=== PATIENT | female | born 1950 | race Caucasian/White ===

== ENCOUNTER 2020-06-23 09:06 | Outpatient (REF) | payer MEDICARE, MEDICAID, SELFPAY ==
[2020-06-23 10:05] LABS: MANUAL DIFF FLAG NO
[2020-06-23 10:09] LABS: Basophils Percent Auto 0.6 % (0-2); Eosinophils Absolute Auto 0.2 X10*3/uL (0.0-0.4); Hematocrit 36.6 % (37-47); Hemoglobin 12.1 g/dl (12.0-16.0); Imm Gran Abs Auto 0.03 X10*3/uL (0.00-0.03); Imm Gran Pct Auto 0.4 % (0.0-0.4); Lymphocytes Absolute Auto 1.8 X10*3/uL (1.2-4.9); Lymphocytes Percent Auto 26.5 % (20-40); Mean Corpuscular HGB Conc 33.1 g/dl (31.0-35.0); Mean Corpuscular Hemoglobin 29.3 pg (27.0-33.0); Mean Corpuscular Volume 88.6 fL (80-98); Mean Platelet Volume 12.2 fL (9.4-12.3); Monocytes Absolute Auto 0.4 X10*3/uL (0.1-1.2); Neutrophils Absolute Auto 4.3 X10*3/uL (2.0-8.3); Neutrophils Percent Auto 63.5 % (45-73); Platelet Count 199 X10*3/uL (160-400); Red Blood Count 4.13 X10*6/uL (4.20-5.50); Red Cell Distribution Width 11.9 % (11.0-16.0); White Blood Count 6.7 X10*3/uL (4.8-10.8)
[2020-06-23 10:36] LABS: Anion Gap 16 (12-20); Blood Urea Nitrogen 35 mg/dL (9-16); Calcium 9.5 mg/dL (8.4-10.2); Carbon Dioxide 24 mmol/L (22-29); Chloride 101 mmol/L (96-108); Estimated Glomerular Filt Rate 38; Magnesium 1.5 mg/dL (1.6-2.6); Phosphorus 4.5 mg/dL (2.7-4.5); Potassium 5.6 mmol/l (3.3-5.1); Sodium 135 mmol/L (135-145)
[2020-06-23 10:36] LABS: Creatinine Urine 140.22 mg/dL; Total Protein Urine Random 26 mg/dL (<12)
[2020-06-23 10:59] LABS: Vitamin D 25-OH Total 35.1 ng/mL (>30)
[2020-06-23 11:01] LABS: Glucose Urine UA NEG (NEG); Leukocyte Esterase Urine 1+ (NEG); Nitrite Urine NEG (NEG); Urine Blood NEG (NEG); Urine Ketones NEG (NEG); Urine Protein TRACE MG/DL (NEG-TRACE)
[2020-06-23 11:10] LABS: Appearance Urine HAZY; Color Urine YELLOW
[2020-06-23 11:11] LABS: Renal w Reflex-LAB USE ONLY Order Verified
[2020-06-23 11:47] LABS: Creatinine Urine 133.56 mg/dL; Protein/Creatinine Ratio, Ur 0.19 (<0.2); Total Protein Urine Random 26 mg/dL (<12)
[2020-06-23 11:51] LABS: Bacteria Urine TRACE /LPF; RBC Urine 0-2 /HPF (0); Squamous Epithelial Cell Urine 1+ /LPF
[2020-06-23 13:40] LABS: Renal w Reflex Lab Use Only Order verified
[2020-06-26 17:13] LABS: Calcium (PTHI) 9.8 mg/dL (8.6-10.4); PTHI 63 pg/mL (14-64)
== END 2020-06-23 09:07 | disposition home or self-care (01) ==
LOC: HO.LAB 09:06
PROVIDERS: PCP Family Medicine; Visit Provider Internal Medicine Nephrology
DX: E11.22 Type 2 diabetes mellitus with diabetic chronic kidney disease (principal); I12.9 Hypertensive chronic kidney disease with stage 1 through stage 4 chronic kidney disease, or unspecified chronic kidney disease; N18.30 Chronic kidney disease, stage 3 unspecified; D63.8 Anemia in other chronic diseases classified elsewhere; R80.9 Proteinuria, unspecified; E87.2 Acidosis; E83.52 Hypercalcemia
CPT/HCPCS: 36415; 80051; 81001; 82040; 82043; 82306; 82310; 82565; 83735; 83970; 84100; 84156; 84520; 85025; 87086

== ENCOUNTER 2020-07-13 13:23 | Outpatient (REF) | payer MEDICARE, MEDICAID, SELFPAY ==
[2020-07-13 14:57] LABS: Anion Gap 16 (12-20); Blood Urea Nitrogen 43 mg/dL (9-16); Calcium 9.5 mg/dL (8.4-10.2); Carbon Dioxide 23 mmol/L (22-29); Chloride 103 mmol/L (96-108); Estimated Glomerular Filt Rate 37; Phosphorus 4.9 mg/dL (2.7-4.5); Potassium 5.3 mmol/l (3.3-5.1); Sodium 137 mmol/L (135-145)
[2020-07-13 15:42] LABS: Renal w Reflex Lab Use Only Order verified
== END 2020-07-13 13:24 | disposition home or self-care (01) ==
LOC: HO.LAB 13:23
PROVIDERS: PCP Family Medicine; Visit Provider Internal Medicine Nephrology
DX: E11.22 Type 2 diabetes mellitus with diabetic chronic kidney disease (principal); E11.21 Type 2 diabetes mellitus with diabetic nephropathy; I12.9 Hypertensive chronic kidney disease with stage 1 through stage 4 chronic kidney disease, or unspecified chronic kidney disease; N18.30 Chronic kidney disease, stage 3 unspecified; D63.8 Anemia in other chronic diseases classified elsewhere; R80.9 Proteinuria, unspecified; E87.2 Acidosis; E83.52 Hypercalcemia
CPT/HCPCS: 36415; 80051; 82310; 82565; 84100; 84520

== ENCOUNTER 2020-08-07 19:16 | Emergency (ER) | payer MEDICARE, MEDICAID, SELFPAY ==
[2020-08-07 21:10] VITALS: BP 130/72; PULSE 74; RESP 18; TEMP 36.6; O2SAT 97; BMI 33.3
[2020-08-07 22:36] VITALS: BP 150/66; PULSE 67; RESP 16; TEMP 37; O2SAT 99
[2020-08-07 22:52] LABS: MANUAL DIFF FLAG NO
[2020-08-07 22:53] LABS: Basophils Absolute Auto 0.1 X10*3/uL (0.0-0.2); Basophils Percent Auto 0.5 % (0-2); Eosinophils Absolute Auto 0.2 X10*3/uL (0.0-0.4); Eosinophils Percent Auto 1.8 % (0-4); Hematocrit 33.4 % (37-47); Hemoglobin 11.3 g/dl (12.0-16.0); Imm Gran Abs Auto 0.03 X10*3/uL (0.00-0.03); Imm Gran Pct Auto 0.3 % (0.0-0.4); Lymphocytes Absolute Auto 2.3 X10*3/uL (1.2-4.9); Lymphocytes Percent Auto 24.8 % (20-40); Mean Corpuscular HGB Conc 33.8 g/dl (31.0-35.0); Mean Corpuscular Hemoglobin 29.8 pg (27.0-33.0); Mean Corpuscular Volume 88.1 fL (80-98); Mean Platelet Volume 11.7 fL (9.4-12.3); Monocytes Absolute Auto 0.6 X10*3/uL (0.1-1.2); Monocytes Percent Auto 6.4 % (2-11); Neutrophils Absolute Auto 6.2 X10*3/uL (2.0-8.3); Neutrophils Percent Auto 66.2 % (45-73); Platelet Count 208 X10*3/uL (160-400); Red Blood Count 3.79 X10*6/uL (4.20-5.50); Red Cell Distribution Width 12.1 % (11.0-16.0); White Blood Count 9.3 X10*3/uL (4.8-10.8)
[2020-08-07 23:01] LABS: Glucose Urine UA NEG (NEG); Leukocyte Esterase Urine 1+ (NEG); Nitrite Urine NEG (NEG); PH 5.5 (5.0-8.0); UACC Culture Trigger YES; Urine Blood NEG (NEG); Urine Ketones NEG (NEG); Urine Protein NEG (NEG-TRACE)
[2020-08-07 23:03] LABS: Appearance Urine CLEAR; Color Urine STRAW
[2020-08-07 23:13] LABS: Bacteria Urine TRACE /LPF; RBC Urine 0 /HPF (0); Squamous Epithelial Cell Urine 1+ /LPF
[2020-08-07 23:24] LABS: Alanine Aminotransferase 19 U/L (0-31); Alkaline Phosphatase 74 U/L (39-117); Anion Gap 18 (12-20); Aspartate Amino Transferase 12 U/L (5-31); Bilirubin Direct < 0.2 mg/dL (0.0-0.5); Bilirubin Total 0.3 mg/dL (0.0-1.0); Blood Urea Nitrogen 40 mg/dL (9-16); Calcium 8.9 mg/dL (8.4-10.2); Carbon Dioxide 17 mmol/L (22-29); Chloride 104 mmol/L (96-108); Creatinine Clr Calc Pharmacy 47.5; Estimated Glomerular Filt Rate 42; Glucose Random 153 mg/dL (60-115); Lipase 40 U/L (8-78); Potassium 4.7 mmol/L (3.3-5.1); Sodium 134 mmol/L (135-145); Total Protein 7.4 g/dL (6.5-8.0)
[2020-08-07 23:27] LABS: B Type Natriuretic Peptide 36 pg/mL (<100)
--- NOTE | 2020-08-07 23:48 | PC.NURSE ---
PT TO ROOM, CHG INTO GOWN AND AWAITING MD'S EVAL. LABS AND URINE COLLECTED IN WR GARAGE MANAGER. PT C/O HAILEY LEG SWELLING AND PAIN AND FLANK PAIN. PT ARRIVES ALERT, RESPIRATIONS EASY, N/L. SKIN W/D. WILL CONTINUE TO MONITOR PT.
--- NOTE | 2020-08-07 23:50 | ED.GENADULT ---
HPI - General Adult General Chief complaint: General Medical Stated complaint: flank pain Time Seen by Provider: 08/07/20 23:50 Source: patient Mode of arrival: ambulatory Limitations: no limitations History of Present Illness HPI narrative: Patient history of dependent edema on diuretics comes here for increased swelling for last few days also complaining of pain in the left ankle area without any history of injury / fall patient denies any fever no calf tenderness no urinary complaints no shortness of breath or chest pain patient was complaining of mild lower abdominal discomfort Related Data Previous Rx's Medication Instructions Recorded nitrofurantoin monohyd/m-cryst 100 mg PO BID #14 cap 08/08/20 [Macrobid] tramadol 50 mg PO Q8H PRN #20 tab 08/08/20 Allergies Allergy/AdvReac Type Severity Reaction Status Date / Time No Known Allergies Allergy Unverified 03/02/20 16:45 Review of Systems Review of Systems: Constitutional : No Weight loss, No Fever, No Chills ENT/Mouth : No sore throat, No Rhinorrhea Eyes: No Eye Pain, No Swelling Cardiovascular : No Chest Pain, no palpitations Respiratory : No Cough, No Sputum, no shortness of breath Gastrointestinal : no Nausea, No Vomiting, No Diarrhea, mild lower abdominal Pain, no black stools Genitourinary : No Dysuria, No Urinary Frequency Musculoskeletal : No joint pain, No Myalgias, No Joint Swelling Skin : No Skin Lesions, No rash Neuro : No Weakness, No Numbness, No Dizziness, No Headache Psych : No Anxiety/Panic, No Depression Heme/Lymph: No Bruising, No Lymphadenopathy Endocrine : No Polyuria, No Polydipsia All other systems reviewed and are negative [facility] Past Medical History Medical History (Updated 08/08/20 @ 00:50 by Jamir Crespo MD) Leg edema Social History Social History Advance Directives: No Physical Exam Vital Signs: Vital Signs: Last Vital Signs Temp 98.6 F 08/07/20 22:36 Pulse 67 08/07/20 22:36 Resp 16 08/07/20 22:36 BP 150/66 H 08/07/20 22:36 Pulse Ox 99 08/07/20 22:36 Body Mass Index 33.3 Appearance: Alert. Oriented X3. No acute distress. Eyes: Pupils equal, round and reactive to light. ENT: Pharynx normal. Neck: Normal inspection. Neck supple. CVS: Normal heart rate and rhythm. Pulses normal. Respiratory: No respiratory distress. Breath sounds normal. Abdomen: Soft and nontender. Bowel sounds are present, no mass palpable, no CVA tenderness Skin: Skin warm and dry. Normal skin color. Normal skin turgor. Extremities: 1+ lower extremity edema. No calf tenderness Homans sign negative Neuro: Oriented X 3. No motor deficit. No sensory deficit. Medical Decision Making MDM Narrative Medical decision making narrative: Patient has stable labs normal BNP on diuretics for her dependent leg edema no signs of DVT at this time no shortness of breath patient advised to continue her water pill will give her tramadol for mild pain in the left ankle. Also urine showed mild UTI will treat her with Macrobid Lab Data Lab results reviewed: Yes I reviewed the patient's lab results. Result diagrams: 08/07/20 22:47 08/07/20 22:47 Labs: Lab Results 08/07/20 08/07/20 08/07/20 Range/Units 22:47 22:47 22:47 WBC 9.3 (4.8-10.8) X10*3/uL RBC 3.79 L (4.20-5.50) X10*6/uL Hgb 11.3 L (12.0-16.0) g/dl Hct 33.4 L (37-47) % MCV 88.1 (80-98) fL MCH 29.8 (27.0-33.0) pg MCHC 33.8 (31.0-35.0) g/dl RDW 12.1 (11.0-16.0) % Plt Count 208 (160-400) X10*3/uL MPV 11.7 (9.4-12.3) fL Immature Gran % (Auto) 0.3 (0.0-0.4) % Neut % (Auto) 66.2 (45-73) % Lymph % (Auto) 24.8 (20-40) % [place] % (Auto) 6.4 (2-11) % Eos % (Auto) 1.8 (0-4) % Baso % (Auto) 0.5 (0-2) % Lymph # (Auto) 2.3 (1.2-4.9) X10*3/uL [place] # (Auto) 0.6 (0.1-1.2) X10*3/uL Eos # (Auto) 0.2 (0.0-0.4) X10*3/uL Baso # (Auto) 0.1 (0.0-0.2) X10*3/uL Abs Immat Gran (auto) 0.03 (0.00-0.03) X10*3/uL Absolute Neuts (auto) 6.2 (2.0-8.3) X10*3/uL Absolute Nucleated RBC 0.000 (0.0-0.012) X10*3/uL Nucleated RBC % (auto) 0.0 (0.0-0.2) /100WBC Sodium 134 L (135-145) mmol/L Potassium 4.7 (3.3-5.1) mmol/L Chloride 104 (96-108) mmol/L Carbon Dioxide 17 L (22-29) mmol/L Anion Gap 18 (12-20) BUN 40 H (9-16) mg/dL Creatinine 1.26 (0.5-1.4) mg/dL Estim Creat Clear Calc 47.5 Estimated GFR 42 Random Glucose 153 H (60-115) mg/dL Calcium 8.9 D (8.4-10.2) mg/dL Total Bilirubin 0.3 (0.0-1.0) mg/dL Direct Bilirubin < 0.2 (0.0-0.5) mg/dL AST 12 (5-31) U/L ALT 19 (0-31) U/L Alkaline Phosphatase 74 (39-117) U/L B-Natriuretic Peptide 36 (<100) pg/mL Total Protein 7.4 (6.5-8.0) g/dL Albumin 4.0 (3.5-5.0) g/dL Lipase 40 (8-78) U/L Urine Color Urine Appearance Urine pH (5.0-8.0) Ur Specific Lynch (1.005-1.025) Urine Protein (NEG-TRACE) MG/DL Urine Glucose (UA) (NEG) MG/DL Urine Ketones (NEG) MG/DL Urine Blood (NEG) Urine Nitrite (NEG) Ur Leukocyte Esterase (NEG) Urine RBC (0) /HPF Urine WBC (0-4) /HPF Ur Squamous Epith Cells /LPF Urine Bacteria /LPF 08/07/20 Range/Units 22:55 WBC (4.8-10.8) X10*3/uL RBC (4.20-5.50) X10*6/uL Hgb (12.0-16.0) g/dl Hct (37-47) % MCV (80-98) fL MCH (27.0-33.0) pg MCHC (31.0-35.0) g/dl RDW (11.0-16.0) % Plt Count (160-400) X10*3/uL MPV (9.4-12.3) fL Immature Gran % (Auto) (0.0-0.4) % Neut % (Auto) (45-73) % Lymph % (Auto) (20-40) % [place] % (Auto) (2-11) % Eos % (Auto) (0-4) % Baso % (Auto) (0-2) % Lymph # (Auto) (1.2-4.9) X10*3/uL [place] # (Auto) (0.1-1.2) X10*3/uL Eos # (Auto) (0.0-0.4) X10*3/uL Baso # (Auto) (0.0-0.2) X10*3/uL Abs Immat Gran (auto) (0.00-0.03) X10*3/uL Absolute Neuts (auto) (2.0-8.3) X10*3/uL Absolute Nucleated RBC (0.0-0.012) X10*3/uL Nucleated RBC % (auto) (0.0-0.2) /100WBC Sodium (135-145) mmol/L Potassium (3.3-5.1) mmol/L Chloride (96-108) mmol/L Carbon Dioxide (22-29) mmol/L Anion Gap (12-20) BUN (9-16) mg/dL Creatinine (0.5-1.4) mg/dL Estim Creat Clear Calc Estimated GFR Random Glucose (60-115) mg/dL Calcium (8.4-10.2) mg/dL Total Bilirubin (0.0-1.0) mg/dL Direct Bilirubin (0.0-0.5) mg/dL AST (5-31) U/L ALT (0-31) U/L Alkaline Phosphatase (39-117) U/L B-Natriuretic Peptide (<100) pg/mL Total Protein (6.5-8.0) g/dL Albumin (3.5-5.0) g/dL Lipase (8-78) U/L Urine Color STRAW Urine Appearance CLEAR Urine pH 5.5 (5.0-8.0) Ur Specific Lynch 1.010 (1.005-1.025) Urine Protein NEG (NEG-TRACE) MG/DL Urine Glucose (UA) NEG (NEG) MG/DL Urine Ketones NEG (NEG) MG/DL Urine Blood NEG (NEG) Urine Nitrite NEG (NEG) Ur Leukocyte Esterase 1+ H (NEG) Urine RBC 0 (0) /HPF Urine WBC 10-14 H (0-4) /HPF Ur Squamous Epith Cells 1+ /LPF Urine Bacteria TRACE /LPF Discharge Plan Discharge Clinical Impression: Leg edema, Acute UTI Patient Disposition: Home, Self-Care Instructions: Urinary Tract Infection in Women (ED), Leg Edema (ED) Additional Instructions: Continue water pill. Keep your legs elevated. Take antibiotic for infection the urine. Follow with PCP if not better increased swelling or shortness of breath Prescriptions: New nitrofurantoin monohyd/m-cryst [Macrobid] 100 mg capsule 100 mg PO BID Qty: 14 RF: 0 tramadol 50 mg tablet 50 mg PO Q8H PRN (Reason: pain) Qty: 20 RF: 0 Interventions: ED Discharge Assessment Last Done: 08/08/20 00:11 Discharge Date/Time: 08/08/20 00:20
[2020-08-08] MEDS: traMADoL HCL 50 MG TABLET PO (00:09)
[2020-08-08] MEDS: Nitrofurantoin Monohyd/M-Cryst 100 MG CAPSULE PO (00:10)
== END 2020-08-08 00:20 | disposition home or self-care (01) ==
PROVIDERS: Emergency Provider Internal Medicine; PCP Family Medicine
DX: R60.0 Localized edema (principal); M25.572 Pain in left ankle and joints of left foot; N39.0 Urinary tract infection, site not specified; Z79.899 Other long term (current) drug therapy
CPT/HCPCS: 36415; 80048; 80076; 81001; 81003; 83690; 83880; 85025; 87086; 99283

== ENCOUNTER 2020-10-13 09:41 | Outpatient (REF) | payer OTHER, SELFPAY ==
[2020-10-13 10:45] LABS: Anion Gap 15 (12-20); Blood Urea Nitrogen 35 mg/dL (9-16); Calcium 9.3 mg/dL (8.4-10.2); Carbon Dioxide 23 mmol/L (22-29); Chloride 100 mmol/L (96-108); Estimated Glomerular Filt Rate 36; Potassium 5.4 mmol/L (3.3-5.1); Sodium 133 mmol/L (135-145)
[2020-10-13 13:35] LABS: Renal w Reflex Lab Use Only Order verified
== END 2020-10-13 09:42 | disposition home or self-care (01) ==
LOC: HO.LAB 09:41
PROVIDERS: PCP Family Medicine; Visit Provider Internal Medicine Nephrology
DX: I12.9 Hypertensive chronic kidney disease with stage 1 through stage 4 chronic kidney disease, or unspecified chronic kidney disease (principal); D63.8 Anemia in other chronic diseases classified elsewhere; N18.30 Chronic kidney disease, stage 3 unspecified; R80.9 Proteinuria, unspecified; E11.21 Type 2 diabetes mellitus with diabetic nephropathy; E87.2 Acidosis; E83.52 Hypercalcemia
CPT/HCPCS: 36415; 80051; 82310; 82565; 84100; 84520

== ENCOUNTER 2021-02-28 12:55 | Emergency (ER) | payer OTHER, SELFPAY ==
--- NOTE | ~2021-02-28 | XR_ITS ---
EXAMINATION: RIGHT SHOULDER PAIN. CHEST CLINICAL INFORMATION: Right shoulder pain. Chest. COMPARISON: None TECHNIQUE: 4 views right shoulder. Chest 2 views. FINDINGS: RIGHT SHOULDER: There is no visible acute fracture, dislocation or subluxation. No bony erosive changes. No loose bodies. The soft tissues are normal. CHEST: Both lungs are fairly well-expanded and clear. Heart size and pulmonary vascularity is normal. No gross bony abnormality seen. XR/XR shoulder RT min 2V IMPRESSION: Unremarkable right shoulder exam. Unremarkable chest exam.
--- NOTE | ~2021-02-28 | XR_ITS ---
EXAMINATION: RIGHT SHOULDER PAIN. CHEST CLINICAL INFORMATION: Right shoulder pain. Chest. COMPARISON: None TECHNIQUE: 4 views right shoulder. Chest 2 views. FINDINGS: RIGHT SHOULDER: There is no visible acute fracture, dislocation or subluxation. No bony erosive changes. No loose bodies. The soft tissues are normal. CHEST: Both lungs are fairly well-expanded and clear. Heart size and pulmonary vascularity is normal. No gross bony abnormality seen. XR/XR chest 2V IMPRESSION: Unremarkable right shoulder exam. Unremarkable chest exam.
--- NOTE | 2021-02-28 13:11 | PC.NURSE ---
waiting for electric range servicer to triage
[2021-02-28 13:16] VITALS: BP 152/66; PULSE 74; RESP 17; TEMP 36.5; O2SAT 96; BMI 34.0
--- NOTE | 2021-02-28 14:16 | ECG_ITS ---
Test Reason : CHEST WALL PAIN Blood Pressure : / mmHG Vent. Rate : 063 BPM Atrial Rate : 063 BPM P-R Int : 160 ms QRS Dur : 074 ms QT Int : 464 ms P-R-T Axes : 029 -25 000 degrees QTc Int : 474 ms Normal sinus rhythm Moderate voltage criteria for LVH, may be normal variant Borderline ECG When compared with ECG of 15-MAR-2018 01:28, No significant change was found Referred By: Poppy Bartlett Electronically Signed By:JENNIFER ANDERSON
--- NOTE | 2021-02-28 14:16 | ED.EXTPRO ---
HPI - Extremity Problem General Chief complaint: Extremity Injury, Upper Stated complaint: shoulder Inj Time Seen by Provider: 02/28/21 13:26 Source: patient Mode of arrival: ambulatory Limitations: no limitations History of Present Illness HPI Narrative: This is a 62-year-old female with a past medical history of hypertension, diabetes that presents to the emergency department with vague shoulder pain. Upon further questioning she states that the pain is chest pain as well as shoulder pain. She states that the shoulder pain began about 2 weeks ago, and it has been intermittent in nature about a 6/10. The shoulder pain worsens with movement, and is absent at rest. this started after she lifted an air-conditioning by herself. Her shoulder pain does not radiate. She then explains that she is having anterior chest wall pain, that seems to worsen upon inspiration. The chest pain started around 2 weeks ago, and again is intermittent in nature, she feels like a stabbing pain when it comes on. Patient took Tylenol at home, with little relief. She has no prior cardiac history. MD Complaint: extremity pain (Right shoulder pain) and other (Chest pain) Onset (ago): week(s) (Two weeks) Pain Consistency: intermittent Location: upper extremity (Right shoulder) Severity scale (1-10): 6 Quality: stabbing (Stabbing chest pain) Radiation: none Exacerbating factors: range of motion Associated symptoms: denies other symptoms Related Data Previous Rx's Medication Instructions Recorded nitrofurantoin 100 mg PO BID #14 cap 08/08/20 monohydrate/macrocrystals 100 mg capsule (Macrobid) tramadol 50 mg tablet 50 mg PO Q8H PRN #20 tab 08/08/20 cyclobenzaprine 10 mg tablet 10 mg PO Q8H #14 tab 02/28/21 Allergies Allergy/AdvReac Type Severity Reaction Status Date / Time No Known Allergies Allergy Verified 02/28/21 13:16 Review of Systems Review of Systems: Constitutional : No Weight loss, No Fever, No Chills, No Night Sweats, No Fatigue, No Malaise ENT/Mouth : No Hearing loss, No Ear Pain, No Nasal Congestion, No Sinus Pain, No Hoarseness, No sore throat, No Rhinorrhea, No Swallowing Difficulty Eyes: No Eye Pain, No Swelling, No Redness, No Foreign Body, No Discharge, No Vision Changes Cardiovascular : POS Chest Pain pleuritic, No SOB, No Dyspnea on Exertion, No Orthopnea, No Edema, No Palpitations Respiratory : No Cough, No Sputum, No Wheezing, No Smoke Exposure, No Dyspnea Gastrointestinal : No Nausea, No Vomiting, No Diarrhea, No Constipation, No abdominal Pain, No Hematochezia, No Melena Genitourinary : no irregular bleeding, No Dysuria, No Urinary Frequency, No Hematuria, No Urinary Incontinence, No Urgency, No Flank Pain, No Urinary Flow Changes, No Hesitancy Musculoskeletal : pos right shoulder pain with movement, Myalgias, No Joint Swelling Skin : No Skin Lesions, No rash Neuro : No Weakness, No Numbness, No Paresthesias, No Loss of Consciousness, No Dizziness, No Headache Psych : No Anxiety/Panic, No Depression, No SI/HI/AH/VH, No Social Issues, Heme/Lymph: No Bruising, No Bleeding,No Lymphadenopathy Endocrine : No Polyuria, No Polydipsia, Yes all other systems are reviewed and are negative [facility] Past Medical History Attestation statement: The following information was validated with the patient. Medical History Diabetes HTN (hypertension) Leg edema Surgical History S/P cholecystectomy Social History Social History Advance Directives: No Advance Directives Information Provided: No Physical Exam Vital Signs: Vital Signs: Last Vital Signs Temp 97.7 F 02/28/21 13:16 Pulse 63 02/28/21 17:04 Resp 16 02/28/21 17:04 BP 139/65 02/28/21 17:04 Pulse Ox 96 02/28/21 17:04 Body Mass Index 34.0 vital signs have been reviewed as normal and appeared to be correct. Blood pressure normal. Heart rate normal. Respiration rate normal. Temperature normal. Oxygen saturation normal. Appearance: Alert. Oriented X3. No acute distress. Head: Normal external exam. Normocephalic. Eyes: PERRLA. EOMI. Conjunctiva and sclera normal. Eyelids normal. ENT: Pharynx normal. Uvula midline. Moist mucous membranes. Neck: Normal inspection. Neck supple. FROM. No adenopathy. No meningeal signs. CVS: Normal heart rate and rhythm. Heart sound normal. No murmurs noted. Pulses normal throughout. Pos palpation of anterior chest wall on the right-hand side Respiratory: No respiratory distress. Painless inspiration. Breath sounds normal. No wheezes/rales/rhonchi noted. Chest nontender. No accessory muscle usage noted or decreased air movement noted. Abdomen: Soft and nontender. Nondistended. No guarding. No rigidity. Bowel sounds normal in all 4 quadrants. No distention noted. No organomegaly noted. No visible injury noted. No rebound tenderness. Negative Rovsing sign. Negative obturator's sign. Negative psoas sign. Negative Frost sign. Back: No CVA tenderness. Full range of motion noted. Skin: Skin warm and dry. Normal skin color. Normal skin turgor. No rashes/lesions/lacerations noted. Extremities: Extremities exhibit normal range of motion. Her right shoulder has normal range of motion but causes patient discomfort. No obvious ligamentous injury Neuro: Oriented X 3. No motor deficit. No sensory deficit. Reflexes normal. Normal steady gait. Course Course Course Narrative: 70-year-old female presenting to the ED with complaints of right shoulder pain for the past 2 weeks that have been intermittent after she lifted the air conditioner. She denied any chest pain or shortness of breath although due to her age in her intermittent right shoulder pain she had a cardiac workup. Her labs were obtained and her potassium was 5.3 therefore she was given 30 g of Kayexalate. Her BUN and creatinine are improved and similar when compared to prior. Her troponin was negative delta initially was 5.43 hours later 5.9 therefore this is negative delta. EKG is normal sinus rhythm with a ventricular rate of 63 with moderate voltage criteria for LVH she also had inverted T-waves otherwise no acute ischemic changes are noted. And this EKG is similar including the inverted T-waves with EKG on 03/15/2018. UA revealed trace of leukocytes otherwise within normal limits will wait for culture before treating for UTI as patient denies any urinary symptoms. Right shoulder x-ray negative. Chest x-ray negative. Therefore will DC home with symptomatic treatment as patient most likely has shoulder strain. Along with instructions follow-up with primary care provider and to return if any new or worsening symptoms. Patient understands agrees with this plan. MDM - Extremity (Nontraumatic) Medical Records Attestation: I reviewed the patient's medical records. Lab Data Attestation: I reviewed the patient's lab results. Result diagrams: 02/28/21 14:34 02/28/21 14:34 Labs: Lab Results 02/28/21 02/28/21 02/28/21 Range/Units 14:34 14:34 14:34 WBC 7.1 (4.8-10.8) X10*3/uL RBC 3.77 L (4.20-5.50) X10*6/uL Hgb 11.3 L (12.0-16.0) g/dl Hct 33.4 L (37-47) % MCV 88.6 (80-98) fL MCH 30.0 (27.0-33.0) pg MCHC 33.8 (31.0-35.0) g/dl RDW 11.9 (11.0-16.0) % Plt Count 230 (160-400) X10*3/uL MPV 11.2 (9.4-12.3) fL Immature Gran % (Auto) 0.3 (0.0-0.4) % Neut % (Auto) 61.1 (45-73) % Lymph % (Auto) 26.3 (20-40) % [place] % (Auto) 8.2 (2-11) % Eos % (Auto) 3.5 (0-4) % Baso % (Auto) 0.6 (0-2) % Lymph # (Auto) 1.9 (1.2-4.9) X10*3/uL [place] # (Auto) 0.6 (0.1-1.2) X10*3/uL Eos # (Auto) 0.3 (0.0-0.4) X10*3/uL Baso # (Auto) 0.0 (0.0-0.2) X10*3/uL Abs Immat Gran (auto) 0.02 (0.00-0.03) X10*3/uL Absolute Neuts (auto) 4.4 (2.0-8.3) X10*3/uL Absolute Nucleated RBC 0.000 (0.0-0.012) X10*3/uL Nucleated RBC % (auto) 0.0 (0.0-0.2) /100WBC PT 12.2 (9.9-13.0) SEC INR 1.1 (0.9-1.1) Sodium 136 (135-145) mmol/L Potassium 5.3 H (3.3-5.1) mmol/L Chloride 105 (96-108) mmol/L Carbon Dioxide 21 L (22-29) mmol/L Anion Gap 15 (12-20) BUN 27 H (9-16) mg/dL Creatinine 1.44 H (0.5-1.4) mg/dL Estim Creat Clear Calc 36.1 Estimated GFR 36 Random Glucose 165 H (60-115) mg/dL Calcium 9.3 (8.4-10.2) mg/dL Magnesium 1.6 (1.6-2.6) mg/dL Total Bilirubin 0.5 (0.0-1.0) mg/dL AST 17 D (5-31) U/L ALT 20 (0-31) U/L Alkaline Phosphatase 56 D (39-117) U/L Troponin I High Sens (<3.5-17.0) ng/L B-Natriuretic Peptide (<100) pg/mL Total Protein 7.1 (6.5-8.0) g/dL Albumin 3.9 (3.5-5.0) g/dL Urine Color Urine Appearance Urine pH (5.0-8.0) Ur Specific Evans (1.005-1.025) Urine Protein (NEG-TRACE) MG/DL Urine Glucose (UA) (NEG) MG/DL Urine Ketones (NEG) MG/DL Urine Blood (NEG) Urine Nitrite (NEG) Ur Leukocyte Esterase (NEG) Urine RBC (0) /HPF Urine WBC (0-4) /HPF Ur Squamous Epith Cells /LPF Urine Bacteria /LPF 02/28/21 02/28/21 02/28/21 Range/Units 14:34 16:01 17:36 WBC (4.8-10.8) X10*3/uL RBC (4.20-5.50) X10*6/uL Hgb (12.0-16.0) g/dl Hct (37-47) % MCV (80-98) fL MCH (27.0-33.0) pg MCHC (31.0-35.0) g/dl RDW (11.0-16.0) % Plt Count (160-400) X10*3/uL MPV (9.4-12.3) fL Immature Gran % (Auto) (0.0-0.4) % Neut % (Auto) (45-73) % Lymph % (Auto) (20-40) % [place] % (Auto) (2-11) % Eos % (Auto) (0-4) % Baso % (Auto) (0-2) % Lymph # (Auto) (1.2-4.9) X10*3/uL [place] # (Auto) (0.1-1.2) X10*3/uL Eos # (Auto) (0.0-0.4) X10*3/uL Baso # (Auto) (0.0-0.2) X10*3/uL Abs Immat Gran (auto) (0.00-0.03) X10*3/uL Absolute Neuts (auto) (2.0-8.3) X10*3/uL Absolute Nucleated RBC (0.0-0.012) X10*3/uL Nucleated RBC % (auto) (0.0-0.2) /100WBC PT (9.9-13.0) SEC INR (0.9-1.1) Sodium (135-145) mmol/L Potassium (3.3-5.1) mmol/L Chloride (96-108) mmol/L Carbon Dioxide (22-29) mmol/L Anion Gap (12-20) BUN (9-16) mg/dL Creatinine (0.5-1.4) mg/dL Estim Creat Clear Calc Estimated GFR Random Glucose (60-115) mg/dL Calcium (8.4-10.2) mg/dL Magnesium (1.6-2.6) mg/dL Total Bilirubin (0.0-1.0) mg/dL AST (5-31) U/L ALT (0-31) U/L Alkaline Phosphatase (39-117) U/L Troponin I High Sens 5.4 5.9 (<3.5-17.0) ng/L B-Natriuretic Peptide 47 (<100) pg/mL Total Protein (6.5-8.0) g/dL Albumin (3.5-5.0) g/dL Urine Color YELLOW Urine Appearance CLEAR Urine pH 6.0 (5.0-8.0) Ur Specific Evans 1.010 (1.005-1.025) Urine Protein NEG (NEG-TRACE) MG/DL Urine Glucose (UA) NEG (NEG) MG/DL Urine Ketones NEG (NEG) MG/DL Urine Blood NEG (NEG) Urine Nitrite NEG (NEG) Ur Leukocyte Esterase TRACE H (NEG) Urine RBC 0 (0) /HPF Urine WBC 0-2 (0-4) /HPF Ur Squamous Epith Cells 1+ /LPF Urine Bacteria TRACE /LPF Imaging Data X-ray of chest, and right shoulder: Attestation: I personally reviewed and interpreted this imaging study as follows: Radiologist's impression: XR/XR chest 2V IMPRESSION: Unremarkable right shoulder exam. ? Unremarkable chest exam.? ECG Data Attestation EKG: I personally reviewed and interpreted this ECG as follows: ECG interpretation date: 02/28/21 ECG interpretation time: 14:31 Prior ECG tracings: available for review Interpretation: EKG is normal sinus rhythm with a ventricular rate of 63 with moderate voltage criteria for LVH she also had inverted T-waves otherwise no acute ischemic changes are noted. And this EKG is similar including the inverted T-waves with EKG on 03/15/2018. Discharge Plan Discharge Clinical Impression: Right shoulder strain Patient Disposition: Home, Self-Care Instructions: Shoulder Sprain (ED), Rotator Cuff Injury Exercises (DC) Prescriptions: New cyclobenzaprine 10 mg tablet 10 mg PO Q8H Qty: 14 RF: 0 No Action nitrofurantoin monohyd/m-cryst [Macrobid] 100 mg capsule 100 mg PO BID Qty: 14 RF: 0 tramadol 50 mg tablet 50 mg PO Q8H PRN (Reason: pain) Qty: 20 RF: 0 Referrals: Amy Gilman MD [Primary Care Provider] - 2 days Print Language: Andorran
[2021-02-28 14:41] LABS: MANUAL DIFF FLAG NO
[2021-02-28 14:48] LABS: Basophils Percent Auto 0.6 % (0-2); Eosinophils Absolute Auto 0.3 X10*3/uL (0.0-0.4); Eosinophils Percent Auto 3.5 % (0-4); Hematocrit 33.4 % (37-47); Hemoglobin 11.3 g/dl (12.0-16.0); Imm Gran Abs Auto 0.02 X10*3/uL (0.00-0.03); Imm Gran Pct Auto 0.3 % (0.0-0.4); Lymphocytes Absolute Auto 1.9 X10*3/uL (1.2-4.9); Lymphocytes Percent Auto 26.3 % (20-40); Mean Corpuscular HGB Conc 33.8 g/dl (31.0-35.0); Mean Corpuscular Volume 88.6 fL (80-98); Mean Platelet Volume 11.2 fL (9.4-12.3); Monocytes Absolute Auto 0.6 X10*3/uL (0.1-1.2); Monocytes Percent Auto 8.2 % (2-11); Neutrophils Absolute Auto 4.4 X10*3/uL (2.0-8.3); Neutrophils Percent Auto 61.1 % (45-73); Platelet Count 230 X10*3/uL (160-400); Red Blood Count 3.77 X10*6/uL (4.20-5.50); Red Cell Distribution Width 11.9 % (11.0-16.0); White Blood Count 7.1 X10*3/uL (4.8-10.8)
[2021-02-28 14:49] LABS: INTERNATIONAL NORM RATIO 1.1 (0.9-1.1); Prothrombin Time 12.2 SEC (9.9-13.0)
[2021-02-28 15:15] LABS: Alanine Aminotransferase 20 U/L (0-31); Albumin Level 3.9 g/dL (3.5-5.0); Alkaline Phosphatase 56 U/L (39-117); Anion Gap 15 (12-20); Aspartate Amino Transferase 17 U/L (5-31); Bilirubin Total 0.5 mg/dL (0.0-1.0); Blood Urea Nitrogen 27 mg/dL (9-16); Calcium 9.3 mg/dL (8.4-10.2); Carbon Dioxide 21 mmol/L (22-29); Chloride 105 mmol/L (96-108); Creatinine Clr Calc Pharmacy 36.1; Estimated Glomerular Filt Rate 36; Glucose Random 165 mg/dL (60-115); Magnesium 1.6 mg/dL (1.6-2.6); Potassium 5.3 mmol/L (3.3-5.1); Sodium 136 mmol/L (135-145); Total Protein 7.1 g/dL (6.5-8.0)
[2021-02-28 15:19] LABS: B Type Natriuretic Peptide 47 pg/mL (<100); Troponin-I High Sensitivity 5.4 ng/L (<3.5-17.0)
[2021-02-28] MEDS: Sodium Polystyrene Sulfon/Sorb 15 GM/60 ML ORAL.SUSP 30 GM PO (15:27)
[2021-02-28 16:11] LABS: Appearance Urine CLEAR; Color Urine YELLOW; Glucose Urine UA NEG (NEG); Leukocyte Esterase Urine TRACE (NEG); Nitrite Urine NEG (NEG); UACC Culture Trigger YES; Urine Blood NEG (NEG); Urine Ketones NEG (NEG); Urine Protein NEG (NEG-TRACE)
[2021-02-28 16:33] LABS: Bacteria Urine TRACE /LPF; RBC Urine 0 /HPF (0); Squamous Epithelial Cell Urine 1+ /LPF; WBC Urine 0-2 /HPF (0-4)
[2021-02-28 17:04] VITALS: BP 139/65; PULSE 63; RESP 16; O2SAT 96
[2021-02-28 18:09] LABS: Troponin-I High Sensitivity 5.9 ng/L (<3.5-17.0)
[2021-02-28 18:53] VITALS: BP 148/71; PULSE 68; RESP 14; TEMP 36.2; O2SAT 96
== END 2021-02-28 19:12 | disposition home or self-care (01) ==
PROVIDERS: Physician Assistant Medical; Emergency Provider Emergency Medicine Emergency Medical Services; PCP Family Medicine
DX: S46.011A Strain of muscle(s) and tendon(s) of the rotator cuff of right shoulder, initial encounter (principal); M25.511 Pain in right shoulder; R06.02 Shortness of breath; R07.9 Chest pain, unspecified; X58.XXXA Exposure to other specified factors, initial encounter; Y93.9 Activity, unspecified; Y92.9 Unspecified place or not applicable; Y99.9 Unspecified external cause status; Z79.899 Other long term (current) drug therapy
CPT/HCPCS: 36415; 71046; 73030; 80053; 81001; 83735; 83880; 84484; 85025; 85610; 87086; 93005; 99283; 99284

== ENCOUNTER 2021-03-12 06:43 | Outpatient (REF) | payer OTHER, SELFPAY ==
[2021-03-12 08:01] LABS: MANUAL DIFF FLAG NO
[2021-03-12 08:08] LABS: Basophils Absolute Auto 0.1 X10*3/uL (0.0-0.2); Basophils Percent Auto 0.7 % (0-2); Eosinophils Absolute Auto 0.3 X10*3/uL (0.0-0.4); Eosinophils Percent Auto 4.7 % (0-4); Hemoglobin 11.9 g/dl (12.0-16.0); Imm Gran Abs Auto 0.02 X10*3/uL (0.00-0.03); Imm Gran Pct Auto 0.3 % (0.0-0.4); Lymphocytes Absolute Auto 1.8 X10*3/uL (1.2-4.9); Lymphocytes Percent Auto 26.5 % (20-40); Mean Corpuscular HGB Conc 33.1 g/dl (31.0-35.0); Mean Corpuscular Hemoglobin 29.6 pg (27.0-33.0); Mean Corpuscular Volume 89.6 fL (80-98); Mean Platelet Volume 11.5 fL (9.4-12.3); Monocytes Absolute Auto 0.4 X10*3/uL (0.1-1.2); Monocytes Percent Auto 6.3 % (2-11); Neutrophils Absolute Auto 4.2 X10*3/uL (2.0-8.3); Neutrophils Percent Auto 61.5 % (45-73); Platelet Count 236 X10*3/uL (160-400); Red Blood Count 4.02 X10*6/uL (4.20-5.50); Red Cell Distribution Width 11.9 % (11.0-16.0); White Blood Count 6.8 X10*3/uL (4.8-10.8)
[2021-03-12 08:34] LABS: Albumin Level 3.9 g/dL (3.5-5.0); Anion Gap 18 (12-20); Blood Urea Nitrogen 37 mg/dL (9-16); Calcium 9.6 mg/dL (8.4-10.2); Carbon Dioxide 19 mmol/L (22-29); Chloride 102 mmol/L (96-108); Estimated Glomerular Filt Rate 30; Magnesium 1.8 mg/dL (1.6-2.6); Phosphorus 4.5 mg/dL (2.7-4.5); Potassium 5.2 mmol/L (3.3-5.1); Sodium 134 mmol/L (135-145)
[2021-03-12 08:55] LABS: Appearance Urine CLOUDY; Color Urine YELLOW; Glucose Urine UA NEG (NEG); Leukocyte Esterase Urine 3+ (NEG); Nitrite Urine NEG (NEG); Urine Blood TRACE (NEG); Urine Ketones NEG (NEG); Urine Protein TRACE MG/DL (NEG-TRACE)
[2021-03-12 09:14] LABS: Bacteria Urine 2+ /LPF; Squamous Epithelial Cell Urine 2+ /LPF
[2021-03-12 09:48] LABS: Creatinine Urine 163.58 mg/dL; Microalbum/Creatinine Ratio Ur 26.2 ug/mg cr; Total Protein Urine Random 12 mg/dL (<12)
[2021-03-13 16:16] LABS: Calcium (PTHI) 9.4 mg/dL (8.6-10.4); PTHI 47 pg/mL (14-64)
[2021-03-17 16:32] LABS: Vitamin D 25-OH, D2 <4 ng/mL; Vitamin D 25-OH, D3 47 ng/mL; Vitamin D 25-OH, Total 47 ng/mL (30-100)
== END 2021-03-12 06:44 | disposition home or self-care (01) ==
LOC: HO.LAB 06:43
PROVIDERS: PCP Family Medicine; Visit Provider Internal Medicine Nephrology
DX: E11.21 Type 2 diabetes mellitus with diabetic nephropathy (principal); N18.31 Chronic kidney disease, stage 3a; N25.0 Renal osteodystrophy; R80.1 Persistent proteinuria, unspecified
CPT/HCPCS: 36415; 80051; 81001; 82040; 82043; 82306; 82310; 82565; 83735; 83970; 84100; 84156; 84520; 85025; 87086

== ENCOUNTER 2021-05-29 07:31 | Outpatient (REF) | payer OTHER, SELFPAY ==
[2021-05-29 07:55] LABS: MANUAL DIFF FLAG NO
[2021-05-29 08:14] LABS: Basophils Percent Auto 0.6 % (0-2); Eosinophils Absolute Auto 0.3 X10*3/uL (0.0-0.4); Eosinophils Percent Auto 4.5 % (0-4); Hematocrit 34.3 % (37.0-47.0); Hemoglobin 11.3 g/dl (12.0-16.0); Imm Gran Abs Auto 0.02 X10*3/uL (0.00-0.03); Imm Gran Pct Auto 0.3 % (0.0-0.4); Lymphocytes Absolute Auto 1.9 X10*3/uL (1.2-4.9); Mean Corpuscular HGB Conc 32.9 g/dl (31.0-35.0); Mean Corpuscular Hemoglobin 29.3 pg (27.0-33.0); Mean Corpuscular Volume 88.9 fL (80.0-98.0); Mean Platelet Volume 11.3 fL (9.4-12.3); Monocytes Absolute Auto 0.4 X10*3/uL (0.1-1.2); Monocytes Percent Auto 5.5 % (2-11); Neutrophils Absolute Auto 4.4 x10*3/uL (2.0-8.3); Neutrophils Percent Auto 62.1 % (45-73); Platelet Count 213 X10*3/uL (160-400); Red Blood Count 3.86 X10*6/uL (4.20-5.50); Red Cell Distribution Width 11.8 % (11.0-16.0); White Blood Count 7.1 X10*3/uL (4.8-10.8)
[2021-05-29 08:52] LABS: Albumin Level 3.8 g/dL (3.5-5.0); Anion Gap 15 (12-20); Blood Urea Nitrogen 29 mg/dL (9-16); Calcium 9.4 mg/dL (8.4-10.2); Carbon Dioxide 25 mmol/L (22-29); Chloride 100 mmol/L (96-108); Estimated Glomerular Filt Rate 34; Phosphorus 3.6 mg/dL (2.7-4.5); Potassium 4.9 mmol/L (3.3-5.1); Sodium 135 mmol/L (135-145)
[2021-05-29 08:54] LABS: Magnesium 1.4 mg/dL (1.6-2.6)
[2021-05-29 09:04] LABS: Vitamin D 25-OH Total 36.3 ng/mL (>30)
[2021-05-29 09:32] LABS: Appearance Urine HAZY; Color Urine YELLOW; Glucose Urine UA NEG (NEG); Leukocyte Esterase Urine 1+ (NEG); Nitrite Urine NEG (NEG); Urine Blood NEG (NEG); Urine Ketones NEG (NEG); Urine Protein NEG (NEG-TRACE)
[2021-05-29 09:56] LABS: Creatinine Urine 149.66 mg/dL; Microalbum/Creatinine Ratio Ur 54.7 ug/mg cr; Total Protein Urine Random 15 mg/dL (<12)
[2021-05-29 10:16] LABS: Bacteria Urine 1+ /LPF; RBC Urine 0-2 /HPF (0); Squamous Epithelial Cell Urine 2+ /LPF
[2021-05-30 20:51] LABS: Calcium (PTHI) 9.1 mg/dL (8.6-10.4); PTHI 51 pg/mL (14-64)
== END 2021-05-29 07:32 | disposition home or self-care (01) ==
LOC: HO.LAB 07:31
PROVIDERS: PCP Family Medicine; Visit Provider Internal Medicine Nephrology
DX: E87.5 Hyperkalemia (principal); E11.22 Type 2 diabetes mellitus with diabetic chronic kidney disease; E11.29 Type 2 diabetes mellitus with other diabetic kidney complication; N18.32 Chronic kidney disease, stage 3b
CPT/HCPCS: 36415; 80051; 81001; 82040; 82043; 82306; 82310; 82565; 83735; 83970; 84100; 84156; 84520; 85025; 87086

== ENCOUNTER 2021-06-21 19:53 | Emergency (ER) | payer OTHER, SELFPAY ==
--- NOTE | ~2021-06-21 | XR_ITS ---
EXAMINATION: XR CHEST CLINICAL INFORMATION: Shortness of breath COMPARISON: Previous chest x-ray most recent February 2021 TECHNIQUE: 2 views of the chest were obtained. FINDINGS: The cardiac and mediastinal contours are stable. The lungs are clear. There is no pleural effusion or pneumothorax. There are mild degenerative changes of the spine. XR/XR chest 2V IMPRESSION: No evidence for acute disease in the chest.
--- NOTE | ~2021-06-21 | XR_ITS ---
EXAMINATION: XR LUMBOSACRAL SPINE CLINICAL INFORMATION: Midline back pain COMPARISON: January 14, 2020 TECHNIQUE: Three-view lumbar spine FINDINGS: There are 5 nonrib bearing lumbar vertebra. No acute fracture, spondylolisthesis, spondylolysis is appreciated. There is severe narrowing of the L5-S1 level with loss of disc space and marginal spurring and sclerosis. There is facet arthropathy seen at the L5-S1 level and to a lesser extent at the L4-L5 level. Pedicles appear intact. There appears to be partial lumbarization of the right side of S1. There is calcification of a nonaneurysmal abdominal aorta. XR/XR lumbar spine 2-3V IMPRESSION: Severe degenerative change of the L5-S1 disc space level. Partial lumbarization right side of s1.
[2021-06-21 20:56] VITALS: BP 153/65; PULSE 78; RESP 16; TEMP 36.9; O2SAT 97; BMI 34.0
[2021-06-21 21:59] LABS: Appearance Urine CLEAR; Color Urine YELLOW; Glucose Urine UA 250 MG/DL (NEG); Leukocyte Esterase Urine NEG (NEG); Nitrite Urine NEG (NEG); UACC Culture Trigger NO; Urine Blood 1+ (NEG); Urine Ketones NEG (NEG); Urine Protein TRACE MG/DL (NEG-TRACE)
[2021-06-21 22:22] LABS: Squamous Epithelial Cell Urine TRACE /LPF
[2021-06-21 22:23] LABS: Bacteria Urine TRACE /LPF
--- NOTE | 2021-06-22 08:31 | ECG_ITS ---
Test Reason : sob Blood Pressure : / mmHG Vent. Rate : 073 BPM Atrial Rate : 073 BPM P-R Int : 158 ms QRS Dur : 078 ms QT Int : 418 ms P-R-T Axes : 034 -28 020 degrees QTc Int : 460 ms Normal sinus rhythm Minimal voltage criteria for LVH, may be normal variant ( R in aVL ) Borderline ECG When compared with ECG of 28-FEB-2021 14:27, No significant change was found Referred By: Erica Jorgensen Electronically Signed By:NEENA BOWLES MD
--- NOTE | 2021-06-22 08:34 | ED.BACK ---
HPI - Back Pain/Injury General Chief Complaint: Back Pain/Injury Stated Complaint: back pain? Time Seen by Provider: 06/22/21 07:58 Source: patient Mode of arrival: ambulatory Limitations: no limitations History of Present Illness HPI Narrative: 71 yo female with past medical history of NIDDM, chronic lower leg swelling, hypertension here with complaints of 3 days of Left lower back pain with radiation into the buttocks and down the left leg. No known injury or trauma. No numbness or tingling. No saddle anesthesia. No bowel or bladder incontinence. No fevers or chills. Patient also complaining of bilateral lower extremity swelling. She notices over the last 1 month despite taking her 20 mg of Lasix daily. She also has some dyspnea on exertion. No cough, chest pain, weight gain. Patient weighs herself daily. Related Data Previous Rx's Medication Instructions Recorded nitrofurantoin 100 mg PO BID #14 cap 08/08/20 monohydrate/macrocrystals 100 mg capsule (Macrobid) tramadol 50 mg tablet 50 mg PO Q8H PRN #20 tab 08/08/20 cyclobenzaprine 10 mg tablet 10 mg PO Q8H #14 tab 02/28/21 cyclobenzaprine 10 mg tablet 10 mg PO Q8H PRN #10 tab 06/22/21 lidocaine 5 % topical patch 1 patch TOPICAL DAILY #15 ea 06/22/21 (Lidoderm) tramadol 50 mg tablet 50 mg PO Q8H PRN #8 tab 06/22/21 Allergies Allergy/AdvReac Type Severity Reaction Status Date / Time No Known Allergies Allergy Verified 02/28/21 13:16 Review of Systems Review of Systems: Yes all other systems are reviewed and are negative Constitutional: Constitutional: Reports no additional constitutional complaints, Denies body ache(s), Denies chills, Denies fever(s), Denies headache(s) and Denies weakness Eyes: Eyes: Reports no additional eye complaints and Denies change in vision ENT: Reports system reviewed and no additional complaints, except as documented, Denies dizziness, Denies headache(s), Denies nasal congestion, Denies nasal discharge and Denies neck pain Cardiovascular: Cardiovascular: Reports no additional cardiovascular complaints, Denies chest pain, Reports leg edema and Denies dyspnea Respiratory: Respiratory: Reports no additional respiratory complaints, Denies cough and Denies dyspnea Gastrointestinal: Gastrointestinal: Reports no additional gastrointestinal complaints, Denies abdominal pain, Denies diarrhea, Denies nausea and Denies vomiting Genitourinary: Genitourinary: Reports no additional female genitourinary complaints and Denies urinary incontinence Musculoskeletal: Musculoskeletal: Reports no additional musculoskeletal complaints, Reports back pain, Denies arthralgias, Denies joint swelling, Denies neck pain, Denies numbness and Denies tingling Integumentary/Breasts: Skin/Breast: Reports system reviewed and no additional complaints, except as docu and Denies rash Neurologic: Reports system reviewed and no additional complaints, except as documented, Denies Abnormal speech present, Denies dizziness, Denies headache(s), Denies numbness, Denies tingling and Denies weakness PMFSH Past Medical History Attestation statement: The following information was validated with the patient. Source: old records reviewed and nursing notes reviewed Medical History Diabetes HTN (hypertension) Leg edema Surgical History S/P cholecystectomy Social History Social History Advance Directives: No Advance Directives Information Provided: Yes Physical Exam Vital Signs: Vital Signs: Last Vital Signs Temp 98.0 F 06/22/21 10:53 Pulse 78 06/22/21 10:53 Resp 16 06/22/21 10:53 BP 149/67 H 06/22/21 10:53 Pulse Ox 95 06/22/21 10:53 BMI result Body Mass Index 34.0 Const: General: cooperative, healthy appearing, comfortable and no acute distress Orientation/consciousness: patient oriented x3 Limitations: no limitations HENMT: Head: Yes normal to inspection Ears: hearing grossly normal bilaterally General nose exam: Normal external nose present Face and sinus: Yes normal facial exam Mouth: Normal oral and palatal mucosa present Throat: Yes posterior oropharynx normal Eyes: General: appearance normal, both eyes and all related structures Pupils: Equal, round and reactive pupils present Neck: Neck: Yes normal visual inspection Chest: Chest palpation & inspection: normal inspection of the chest Resp: Effort & Inspection: normal respiratory effort Auscultation: clear to auscultation bilaterally Cardio: Rate: regular rate Rhythm: regular rhythm Peripheral pulses: Peripheral pulses 2+ throughout GI: Inspection: Yes normal to inspection Palpation (GI): Soft to palpation and nontender Auscultation: normal bowel sounds : General: Yes no CVA tenderness Back/Spine/Pelvis: Other: lumbar midline tenderness with no step offs/deformities. Tenderness to left lumbar soft tissue with palpable muscle spasm Back: no CVA tenderness Thoracic/Lumbar Spine: thoracic and lumbar spine normal to inspection Skin: General skin exam: no rashes or lesions noted Neuro: General: patient oriented x3, no focal motor deficits and normal sensation to monofilament Cranial nerves: Yes CN's II-XII intact bilaterally, Yes Equal, round and reactive pupils present, Yes Bilaterally intact EOM present, Yes Nystagmus not present, Yes Normal facial strength present and Yes Midline tongue present Cognition (Neuro): normal cognition Speech: No Abnormal speech present Gait exam (Neuro): Normal gait present Motor exam (neuro): 5/5 motor strength present throughout Sensory Exam: Normal double simultaneous stimulation for sensation Deep tendon reflexes (DTR's): Right patellar reflex intensity grade: 2+ and Left patellar reflex intensity grade: 2+ Extrem: General: Yes normal to inspection, Yes no calf tenderness and Yes pedal edema (1 + edema LE swelling with no erythema or tenderness) Course Course Course Narrative: 71-year-old female here with reports of left lower back pain with radiation down the left leg for or 3 days with no known injury or trauma. Normal neuro exam. No red flag symptoms. due to midline tenderness will check imaging. also complaining of lower extremity swelling for 1 month with some mild dyspnea with exertion despite taking her 20 mg of Lasix. No chest pain, fevers, productive cough, LE pain. exam shows mild 1+ nonpitting edema. Will check chest x-ray, EKG and BNP 1100- x-ray of the lumbar spine show severe degenerative changes. No neurological deficits or red flag symptoms. Patient is ambulatory. Feels better with p.o. Tylenol and low-dose muscle relaxant. likely lumbar radiculopathy. Patient can follow up outpatient with primary care doctor. - Chest x-ray does not show fluid overload. BNP is negative. EKG and troponin are negative. Patient clinically has mild lower extremity edema which is nonpitting. We discussed increasing her dose of Lasix for the next few days and resuming her normal dose. Reviewed worrisome signs and symptoms of when to return to the emergency department. Comfortable discharge home. MDM - Back Pain/Injury MDM Narrative Medical decision making narrative: Sciatica, lumbar radiculopathy, renal colic CHF exacerbation Medical Records Attestation: I reviewed the patient's medical records. Lab Data Attestation: I reviewed the patient's lab results. Result diagrams: 06/22/21 09:20 06/22/21 09:20 Labs: Lab Results 06/21/21 06/22/21 06/22/21 Range/Units 21:22 09:20 09:20 WBC 8.7 (4.8-10.8) X10*3/uL RBC 3.62 L (4.20-5.50) X10*6/uL Hgb 10.9 L (12.0-16.0) g/dl Hct 32.2 L (37.0-47.0) % MCV 89.0 (80.0-98.0) fL MCH 30.1 (27.0-33.0) pg MCHC 33.9 (31.0-35.0) g/dl RDW 11.9 (11.0-16.0) % Plt Count 238 (160-400) X10*3/uL MPV 11.6 (9.4-12.3) fL Immature Gran % (Auto) 0.5 H (0.0-0.4) % Neut % (Auto) 70.1 (45-73) % Lymph % (Auto) 19.7 L (20-40) % [place] % (Auto) 7.6 (2-11) % Eos % (Auto) 1.6 (0-4) % Baso % (Auto) 0.5 (0-2) % Lymph # (Auto) 1.7 (1.2-4.9) X10*3/uL [place] # (Auto) 0.7 (0.1-1.2) X10*3/uL Eos # (Auto) 0.1 (0.0-0.4) X10*3/uL Baso # (Auto) 0.0 (0.0-0.2) X10*3/uL Abs Immat Gran (auto) 0.04 H (0.00-0.03) X10*3/uL Absolute Neuts (auto) 6.1 (2.0-8.3) x10*3/uL Absolute Nucleated RBC 0.000 (0.0-0.012) X10*3/uL Nucleated RBC % (auto) 0.0 (0.0-0.2) /100WBC Sodium 132 L (135-145) mmol/L Potassium 5.4 H (3.3-5.1) mmol/L Chloride 100 (96-108) mmol/L Carbon Dioxide 19 L (22-29) mmol/L Anion Gap 18 (12-20) BUN 34 H (9-16) mg/dL Creatinine 1.50 H (0.5-1.4) mg/dL Estim Creat Clear Calc 34.3 Estimated GFR 34 Random Glucose 262 H (60-115) mg/dL Calcium 9.4 (8.4-10.2) mg/dL Magnesium 2.1 (1.6-2.6) mg/dL Total Bilirubin 0.3 (0.0-1.0) mg/dL Direct Bilirubin < 0.2 (0.0-0.5) mg/dL AST 16 (5-31) U/L ALT 15 (0-31) U/L Alkaline Phosphatase 62 (39-117) U/L Troponin I High Sens (<3.5-17.0) ng/L B-Natriuretic Peptide (<100) pg/mL Total Protein 7.7 (6.5-8.0) g/dL Albumin 3.6 (3.5-5.0) g/dL Urine Color YELLOW Urine Appearance CLEAR Urine pH 6.0 (5.0-8.0) Ur Specific [place] 1.010 (1.005-1.025) Urine Protein TRACE (NEG-TRACE) MG/DL Urine Glucose (UA) 250 H (NEG) MG/DL Urine Ketones NEG (NEG) MG/DL Urine Blood 1+ H (NEG) Urine Nitrite NEG (NEG) Ur Leukocyte Esterase NEG (NEG) Urine RBC 1-4 (0) /HPF Urine WBC 1-4 (0-4) /HPF Ur Squamous Epith Cells TRACE /LPF Urine Bacteria TRACE /LPF COVID-19 ([facility]) (Negative) COVID-19 Clin Com 01/07/22 01/07/22 01/07/22 Range/Units 09:20 09:20 09:21 WBC (4.8-10.8) X10*3/uL RBC (4.20-5.50) X10*6/uL Hgb (12.0-16.0) g/dl Hct (37.0-47.0) % MCV (80.0-98.0) fL MCH (27.0-33.0) pg MCHC (31.0-35.0) g/dl RDW (11.0-16.0) % Plt Count (160-400) X10*3/uL MPV (9.4-12.3) fL Immature Gran % (Auto) (0.0-0.4) % Neut % (Auto) (45-73) % Lymph % (Auto) (20-40) % [place] % (Auto) (2-11) % Eos % (Auto) (0-4) % Baso % (Auto) (0-2) % Lymph # (Auto) (1.2-4.9) X10*3/uL [place] # (Auto) (0.1-1.2) X10*3/uL Eos # (Auto) (0.0-0.4) X10*3/uL Baso # (Auto) (0.0-0.2) X10*3/uL Abs Immat Gran (auto) (0.00-0.03) X10*3/uL Absolute Neuts (auto) (2.0-8.3) x10*3/uL Absolute Nucleated RBC (0.0-0.012) X10*3/uL Nucleated RBC % (auto) (0.0-0.2) /100WBC Sodium (135-145) mmol/L Potassium (3.3-5.1) mmol/L Chloride (96-108) mmol/L Carbon Dioxide (22-29) mmol/L Anion Gap (12-20) BUN (9-16) mg/dL Creatinine (0.5-1.4) mg/dL Estim Creat Clear Calc Estimated GFR Random Glucose (60-115) mg/dL Calcium (8.4-10.2) mg/dL Magnesium (1.6-2.6) mg/dL Total Bilirubin (0.0-1.0) mg/dL Direct Bilirubin (0.0-0.5) mg/dL AST (5-31) U/L ALT (0-31) U/L Alkaline Phosphatase (39-117) U/L Troponin I High Sens 5.6 (<3.5-17.0) ng/L B-Natriuretic Peptide 20 (<100) pg/mL Total Protein (6.5-8.0) g/dL Albumin (3.5-5.0) g/dL Urine Color YELLOW Urine Appearance CLEAR Urine pH 5.5 (5.0-8.0) Ur Specific [place] 1.015 (1.005-1.025) Urine Protein TRACE (NEG-TRACE) MG/DL Urine Glucose (UA) NEG (NEG) MG/DL Urine Ketones NEG (NEG) MG/DL Urine Blood TRACE H (NEG) Urine Nitrite NEG (NEG) Ur Leukocyte Esterase NEG (NEG) Urine RBC 0-2 (0) /HPF Urine WBC 0-2 (0-4) /HPF Ur Squamous Epith Cells 1+ /LPF Urine Bacteria TRACE /LPF COVID-19 ([facility]) (Negative) COVID-19 Clin Com 06/22/21 Range/Units 09:22 WBC (4.8-10.8) X10*3/uL RBC (4.20-5.50) X10*6/uL Hgb (12.0-16.0) g/dl Hct (37.0-47.0) % MCV (80.0-98.0) fL MCH (27.0-33.0) pg MCHC (31.0-35.0) g/dl RDW (11.0-16.0) % Plt Count (160-400) X10*3/uL MPV (9.4-12.3) fL Immature Gran % (Auto) (0.0-0.4) % Neut % (Auto) (45-73) % Lymph % (Auto) (20-40) % [place] % (Auto) (2-11) % Eos % (Auto) (0-4) % Baso % (Auto) (0-2) % Lymph # (Auto) (1.2-4.9) X10*3/uL [place] # (Auto) (0.1-1.2) X10*3/uL Eos # (Auto) (0.0-0.4) X10*3/uL Baso # (Auto) (0.0-0.2) X10*3/uL Abs Immat Gran (auto) (0.00-0.03) X10*3/uL Absolute Neuts (auto) (2.0-8.3) x10*3/uL Absolute Nucleated RBC (0.0-0.012) X10*3/uL Nucleated RBC % (auto) (0.0-0.2) /100WBC Sodium (135-145) mmol/L Potassium (3.3-5.1) mmol/L Chloride (96-108) mmol/L Carbon Dioxide (22-29) mmol/L Anion Gap (12-20) BUN (9-16) mg/dL Creatinine (0.5-1.4) mg/dL Estim Creat Clear Calc Estimated GFR Random Glucose (60-115) mg/dL Calcium (8.4-10.2) mg/dL Magnesium (1.6-2.6) mg/dL Total Bilirubin (0.0-1.0) mg/dL Direct Bilirubin (0.0-0.5) mg/dL AST (5-31) U/L ALT (0-31) U/L Alkaline Phosphatase (39-117) U/L Troponin I High Sens (<3.5-17.0) ng/L B-Natriuretic Peptide (<100) pg/mL Total Protein (6.5-8.0) g/dL Albumin (3.5-5.0) g/dL Urine Color Urine Appearance Urine pH (5.0-8.0) Ur Specific [place] (1.005-1.025) Urine Protein (NEG-TRACE) MG/DL Urine Glucose (UA) (NEG) MG/DL Urine Ketones (NEG) MG/DL Urine Blood (NEG) Urine Nitrite (NEG) Ur Leukocyte Esterase (NEG) Urine RBC (0) /HPF Urine WBC (0-4) /HPF Ur Squamous Epith Cells /LPF Urine Bacteria /LPF COVID-19 ([facility]) Negative (Negative) COVID-19 Clin Com See Note Imaging Data Chest x-ray: Attestation: I personally reviewed and interpreted this imaging study as follows: Radiologist's impression: EXAMINATION: XR CHEST CLINICAL INFORMATION: Shortness of breath COMPARISON: Previous chest x-ray most recent February 2021 TECHNIQUE: 2 views of the chest were obtained. FINDINGS: The cardiac and mediastinal contours are stable. The lungs are clear. There is no pleural effusion or pneumothorax. There are mild degenerative changes of the spine. XR/XR chest 2V IMPRESSION: No evidence for acute disease in the chest. lumbar x-ray: Attestation: I personally reviewed and interpreted this imaging study as follows: Radiologist's impression: [address] [address] XRay Report Signed Patient: Loraine Cuevas MR#: [id number] : 1950 Acct:[id number] Age/Sex: 71 / F ADM Date: 06/21/21 Loc: HO.ED Attending Dr: Ordering Physician: Erica Jorgensen NP Date of Service: 06/22/21 Procedure(s): XR lumbar spine 2-3V Accession Number(s): [id number] cc: Erica Jorgensen NP~ EXAMINATION: XR LUMBOSACRAL SPINE CLINICAL INFORMATION: Midline back pain COMPARISON: January 14, 2020 TECHNIQUE: Three-view lumbar spine FINDINGS: There are 5 nonrib bearing lumbar vertebra. No acute fracture, spondylolisthesis, spondylolysis is appreciated. There is severe narrowing of the L5-S1 level with loss of disc space and marginal spurring and sclerosis. There is facet arthropathy seen at the L5-S1 level and to a lesser extent at the L4-L5 level. Pedicles appear intact. There appears to be partial lumbarization of the right side of S1. There is calcification of a nonaneurysmal abdominal aorta. XR/XR lumbar spine 2-3V IMPRESSION: Severe degenerative change of the L5-S1 disc space level. ? Partial lumbarization right side of s1. ECG Data Attestation: I personally reviewed and interpreted this ECG as follows: ECG interpretation date: 06/22/21 ECG interpretation time: 09:01 Interpretation: normal sinus rhythm with a rate of 73, normal MT, normal QRS normal QT Discharge Plan Discharge Clinical Impression: Lumbar radiculopathy, Localized swelling of both lower extremities Patient Disposition: Home, Self-Care Instructions: Acute Low Back Pain (ED), Leg Edema (ED), Lumbar Radiculopathy (ED), Lower Back Exercises (ED) Additional Instructions: Eleve joshua extremidades inferiores. compre medias de compresi?n y ?selas a diario Dieta baja en sodio Aumente liu lasix a 40 mg al d?a darin los pr?ximos 3 d?as y luego reanude la dosis de 20 mg al d?a. Calor en la espalda, estiramiento suave, sin levantar objetos pesados ni agacharse Prescriptions: New lidocaine [Lidoderm] 5 % adhesive patch,medicated 1 patch topical DAILY Qty: 15 RF: 0 cyclobenzaprine 10 mg tablet 10 mg PO Q8H PRN (Reason: muscle spasm) Qty: 10 RF: 0 tramadol 50 mg tablet 50 mg PO Q8H PRN (Reason: pain) Qty: 8 RF: 0 No Action nitrofurantoin monohyd/m-cryst [Macrobid] 100 mg capsule 100 mg PO BID Qty: 14 RF: 0 tramadol 50 mg tablet 50 mg PO Q8H PRN (Reason: pain) Qty: 20 RF: 0 cyclobenzaprine 10 mg tablet 10 mg PO Q8H Qty: 14 RF: 0 Referrals: Physician,Unknown J [Primary Care Provider] - 2 days Interventions: ED Discharge Assessment Last Done: 06/22/21 11:10 Discharge Date/Time: 06/22/21 11:11 Print Language: Lithuanian
[2021-06-22] MEDS: Acetaminophen 325 MG TABLET 650 MG PO (09:28)
[2021-06-22] MEDS: Cyclobenzaprine HCl 10 MG TABLET PO (09:28)
[2021-06-22 09:47] LABS: MANUAL DIFF FLAG NO
[2021-06-22 10:03] LABS: COVID-19 Test Negative (Negative)
[2021-06-22 10:03] LABS: Appearance Urine CLEAR; Color Urine YELLOW; Glucose Urine UA NEG (NEG); PH 5.5 (5.0-8.0); Specific Gravity - Urine 1.015 (1.005-1.025); Urine Blood TRACE (NEG); Urine Protein TRACE MG/DL (NEG-TRACE)
[2021-06-22 10:04] LABS: Basophils Percent Auto 0.5 % (0-2); Eosinophils Absolute Auto 0.1 X10*3/uL (0.0-0.4); Eosinophils Percent Auto 1.6 % (0-4); Hematocrit 32.2 % (37.0-47.0); Hemoglobin 10.9 g/dl (12.0-16.0); Imm Gran Abs Auto 0.04 X10*3/uL (0.00-0.03); Imm Gran Pct Auto 0.5 % (0.0-0.4); Lymphocytes Absolute Auto 1.7 X10*3/uL (1.2-4.9); Lymphocytes Percent Auto 19.7 % (20-40); Mean Corpuscular HGB Conc 33.9 g/dl (31.0-35.0); Mean Corpuscular Hemoglobin 30.1 pg (27.0-33.0); Mean Platelet Volume 11.6 fL (9.4-12.3); Monocytes Absolute Auto 0.7 X10*3/uL (0.1-1.2); Monocytes Percent Auto 7.6 % (2-11); Neutrophils Absolute Auto 6.1 x10*3/uL (2.0-8.3); Neutrophils Percent Auto 70.1 % (45-73); Platelet Count 238 X10*3/uL (160-400); Red Blood Count 3.62 X10*6/uL (4.20-5.50); Red Cell Distribution Width 11.9 % (11.0-16.0); White Blood Count 8.7 X10*3/uL (4.8-10.8)
[2021-06-22 10:04] LABS: Leukocyte Esterase Urine NEG (NEG); Nitrite Urine NEG (NEG); UACC Culture Trigger NO; Urine Ketones NEG (NEG)
[2021-06-22 10:06] LABS: Bacteria Urine TRACE /LPF; RBC Urine 0-2 /HPF (0); Squamous Epithelial Cell Urine 1+ /LPF; WBC Urine 0-2 /HPF (0-4)
[2021-06-22 10:16] LABS: Alanine Aminotransferase 15 U/L (0-31); Albumin Level 3.6 g/dL (3.5-5.0); Alkaline Phosphatase 62 U/L (39-117); Anion Gap 18 (12-20); Aspartate Amino Transferase 16 U/L (5-31); Bilirubin Direct < 0.2 mg/dL (0.0-0.5); Bilirubin Total 0.3 mg/dL (0.0-1.0); Blood Urea Nitrogen 34 mg/dL (9-16); Calcium 9.4 mg/dL (8.4-10.2); Carbon Dioxide 19 mmol/L (22-29); Chloride 100 mmol/L (96-108); Creatinine Clr Calc Pharmacy 34.3; Estimated Glomerular Filt Rate 34; Glucose Random 262 mg/dL (60-115); Magnesium 2.1 mg/dL (1.6-2.6); Potassium 5.4 mmol/L (3.3-5.1); Sodium 132 mmol/L (135-145); Total Protein 7.7 g/dL (6.5-8.0)
[2021-06-22 10:21] LABS: B Type Natriuretic Peptide 20 pg/mL (<100); Troponin-I High Sensitivity 5.6 ng/L (<3.5-17.0)
[2021-06-22 10:53] VITALS: BP 149/67; PULSE 78; RESP 16; TEMP 36.7; O2SAT 95
== END 2021-06-22 11:11 | disposition home or self-care (01) ==
PROVIDERS: Nurse Practitioner Family; Emergency Provider Emergency Medicine
DX: M54.16 Radiculopathy, lumbar region (principal); R60.0 Localized edema; R06.02 Shortness of breath; E11.9 Type 2 diabetes mellitus without complications; I10 Essential (primary) hypertension; Z20.822 Contact with and (suspected) exposure to COVID-19
CPT/HCPCS: 36415; 71046; 72100; 80048; 80076; 81001; 81003; 83735; 83880; 84484; 85025; 87635; 93005; 99283; 99284

== ENCOUNTER 2021-11-30 08:44 | Outpatient (REF) | payer OTHER, SELFPAY ==
[2021-11-30 09:03] LABS: MANUAL DIFF FLAG NO
[2021-11-30 10:33] LABS: Basophils Absolute Auto 0.1 X10*3/uL (0.0-0.2); Basophils Percent Auto 1.1 % (0-2); Eosinophils Absolute Auto 0.2 X10*3/uL (0.0-0.4); Eosinophils Percent Auto 3.4 % (0-4); Hematocrit 34.8 % (37.0-47.0); Hemoglobin 11.8 g/dl (12.0-16.0); Imm Gran Abs Auto 0.04 X10*3/uL (0.00-0.03); Imm Gran Pct Auto 0.6 % (0.0-0.4); Lymphocytes Absolute Auto 2.2 X10*3/uL (1.2-4.9); Lymphocytes Percent Auto 36.2 % (20-40); Mean Corpuscular HGB Conc 33.9 g/dl (31.0-35.0); Mean Corpuscular Hemoglobin 29.7 pg (27.0-33.0); Mean Corpuscular Volume 87.7 fL (80.0-98.0); Mean Platelet Volume 11.7 fL (9.4-12.3); Monocytes Absolute Auto 0.4 X10*3/uL (0.1-1.2); Monocytes Percent Auto 6.8 % (2-11); Neutrophils Absolute Auto 3.2 x10*3/uL (2.0-8.3); Neutrophils Percent Auto 51.9 % (45-73); Platelet Count 230 X10*3/uL (160-400); Red Blood Count 3.97 X10*6/uL (4.20-5.50); Red Cell Distribution Width 12.4 % (11.0-16.0); White Blood Count 6.2 X10*3/uL (4.8-10.8)
[2021-11-30 10:34] LABS: Appearance Urine CLEAR; Color Urine YELLOW; Glucose Urine UA NEG (NEG); Leukocyte Esterase Urine TRACE (NEG); Nitrite Urine NEG (NEG); Urine Blood TRACE (NEG); Urine Ketones NEG (NEG); Urine Protein 2+ MG/DL (NEG-TRACE)
[2021-11-30 11:06] LABS: Albumin Level 3.9 g/dL (3.5-5.0); Anion Gap 15 (12-20); Blood Urea Nitrogen 40 mg/dL (9-16); Calcium 9.3 mg/dL (8.4-10.2); Carbon Dioxide 20 mmol/L (22-29); Chloride 105 mmol/L (96-108); Estimated Glomerular Filt Rate 35; Magnesium 1.6 mg/dL (1.6-2.6); Phosphorus 3.4 mg/dL (2.7-4.5); Potassium 4.9 mmol/L (3.3-5.1); Sodium 135 mmol/L (135-145)
[2021-11-30 11:13] LABS: Vitamin D 25-OH Total 32.9 ng/mL (>30)
[2021-11-30 11:44] LABS: Bacteria Urine TRACE /LPF; Squamous Epithelial Cell Urine 1+ /LPF
[2021-11-30 12:04] LABS: Creatinine Urine 72.09 mg/dL; Protein/Creatinine Ratio, Ur 1.08 (<0.2); Total Protein Urine Random 78 mg/dL (<12)
[2021-11-30 12:25] LABS: Microalbum/Creatinine Ratio Ur 811.4 ug/mg cr
[2021-12-03 16:21] LABS: PTHI 42 pg/mL (16-77)
[2021-12-04 09:48] LABS: Calcium (PTHI) 9.5
== END 2021-11-30 08:45 | disposition home or self-care (01) ==
LOC: HO.LAB 08:44
PROVIDERS: PCP Family Medicine; Visit Provider Internal Medicine Nephrology
DX: E11.21 Type 2 diabetes mellitus with diabetic nephropathy (principal); I10 Essential (primary) hypertension; N18.32 Chronic kidney disease, stage 3b
CPT/HCPCS: 36415; 80051; 81001; 82040; 82043; 82306; 82310; 82565; 83735; 83970; 84100; 84156; 84520; 85025; 87086

== ENCOUNTER 2022-07-03 13:52 | Outpatient (REF) | payer OTHER, SELFPAY ==
--- NOTE | ~2022-07-03 | MM_ITS ---
EXAMINATION: MM SCREENING DIGITAL BREAST TOMOSYNTHESIS, BILATERAL CLINICAL INFORMATION: Screening. Asymptomatic. The lifetime risk of breast cancer based on the Tyrer-Cuzick Model is 4.1%. COMPARISON: Mammography: July 13, 2018 and studies dating back to February 09, 2014 TECHNIQUE: Digital breast tomosynthesis is performed in both the craniocaudal and mediolateral oblique views along with computer-aided detection (CAD). Synthesized 2D images are generated from the tomosynthesis. FINDINGS: There are scattered areas of fibroglandular density (ACR BI-RADS breast composition Category b). There has been asymmetric increase in benign-appearing calcifications bilaterally. No new abnormal dominant mass is appreciated. No region of architectural distortion is seen. MM/MM tomosynthesis screening BI IMPRESSION: No significant changes from prior exam. ASSESSMENT: BI-RADS 2: Benign RECOMMENDATION: Routine annual mammography screening. This patient's information was entered into a reminder system with a target due date for their next mammogram.
== END 2022-07-03 13:53 | disposition home or self-care (01) ==
LOC: HO.MAMMO 13:52
PROVIDERS: PCP Family Medicine; Visit Provider Family Medicine
DX: Z12.31 Encounter for screening mammogram for malignant neoplasm of breast (principal)
CPT/HCPCS: 77063; 77067

== ENCOUNTER 2022-07-04 09:27 | Outpatient (REF) | payer OTHER, SELFPAY ==
--- NOTE | ~2022-07-04 | MM_ITS ---
EXAMINATION: BONE DENSITOMETRY CLINICAL INDICATION: Osteopenia. COMPARISON: Baseline BD dated 11/06/2018. TECHNIQUE: Using a Kickit With DXA System (software version: 13.1) manufactured by [employer], dual-energy x-ray absorptiometry was performed of the lumbar spine and left hip. The images are of good technical quality. Summary results are attached. FINDINGS: AP SPINE L1-L3 (excluding L4): The data of L1-L4 has been changed to exclude the L4 vertebral body, because degenerative change at this level may cause overestimation of lumbar spine density. Current: BMD 1.177 g/cm2, Z-score 1.1, T-score 0.1, normal, 6.1% decrease from baseline (<5% change is not significant). Baseline: BMD 1.253 g/cm2. LEFT FEMUR, NECK: Current: BMD 0.771 g/cm2, Z-score -0.6, T-score -1.9, osteopenia. Baseline: BMD 0.836 g/cm2. LEFT FEMUR, TOTAL: Current: BMD 0.904 g/cm2, Z-score 0.2, T-score -0.8, normal, 3.7% decrease from baseline (<5% change is not significant). Baseline: BMD 0.939 g/cm2. IDENTIFIED RISK FACTORS: Rheumatoid arthritis. Kidney disease. Secondary osteoporosis (type 1 diabetes). Menopause. HISTORY OF FRACTURE: None listed. MEDICATIONS: Calcium supplement or multivitamin. Vitamin D. MM/XR DEXA axial skeleton IMPRESSION: 1. DIAGNOSIS: Osteopenia based on the lowest T-score value of -1.9 in the femoral neck applying World Health Organization criteria. 2. 10-YEAR FRACTURE RISK PREDICTION, FRAX: Major osteoporotic fracture (clinical spine, forearm, hip or shoulder) 7.8%. Hip fracture 1.5%. 3. Treatment Recommendations: NOF guidelines recommend consideration for treatment in postmenopausal women and men age 50 and older presenting with the following: -A hip or vertebral (clinical or morphometric) fracture. -T-score less than or equal to -2.5 at the femoral neck or spine after appropriate evaluation to exclude secondary causes. -Low bone mass at the hip or spine and a 10-year fracture probability by FRAX of greater than or equal to 3% for hip fracture or greater than or equal to 20% for major osteoporotic fracture based on the [place] adapted WHO algorithm. 4. Other Recommendations: All treatment decisions require clinical judgment and consideration of individual patient factors, including patient preferences, comorbidities, previous drug use, risk factors not captured in the FRAX model (e.g. frailty, falls, vitamin D deficiency, increased bone turnover, interval significant decline in bone density) and possible under or overestimation of fracture risk by FRAX. Additional medical evaluation for secondary cause of low bone mineral density may be appropriate. FUTURE SCAN RECOMMENDATION: People with diagnosed cases of osteoporosis or at high risk for fracture should have regular bone mineral density tests. For patients eligible for Medicare, routine testing is allowed once every 2 years. The testing frequency can be increased to one year for patients who have rapidly progressing disease, those who are receiving or discontinuing medical therapy to restore bone mass, or have additional risk factors.
== END 2022-07-04 09:28 | disposition home or self-care (01) ==
LOC: HO.MAMMO 09:27
PROVIDERS: Visit Provider Family Medicine
DX: Z13.820 Encounter for screening for osteoporosis (principal); M85.80 Other specified disorders of bone density and structure, unspecified site; Z78.0 Asymptomatic menopausal state
CPT/HCPCS: 77080

== ENCOUNTER 2022-10-15 09:27 | Outpatient (REF) | payer MEDICARE, SELFPAY ==
[2022-10-15 09:47] LABS: MANUAL DIFF FLAG NO
[2022-10-15 10:11] LABS: Basophils Absolute Auto 0.1 X10*3/uL (0.0-0.2); Basophils Percent Auto 0.7 % (0-2); Eosinophils Absolute Auto 0.2 X10*3/uL (0.0-0.4); Eosinophils Percent Auto 3.3 % (0-4); Hematocrit 33.7 % (37.0-47.0); Hemoglobin 11.1 g/dl (12.0-16.0); Imm Gran Abs Auto 0.04 X10*3/uL (0.00-0.03); Imm Gran Pct Auto 0.5 % (0.0-0.4); Lymphocytes Absolute Auto 1.8 X10*3/uL (1.2-4.9); Lymphocytes Percent Auto 24.5 % (20-40); Mean Corpuscular HGB Conc 32.9 g/dl (31.0-35.0); Mean Corpuscular Hemoglobin 29.4 pg (27.0-33.0); Mean Corpuscular Volume 89.2 fL (80.0-98.0); Mean Platelet Volume 11.5 fL (9.4-12.3); Monocytes Absolute Auto 0.5 X10*3/uL (0.1-1.2); Monocytes Percent Auto 6.2 % (2-11); Neutrophils Absolute Auto 4.7 x10*3/uL (2.0-8.3); Neutrophils Percent Auto 64.8 % (45-73); Platelet Count 229 X10*3/uL (160-400); Red Blood Count 3.78 X10*6/uL (4.20-5.50); Red Cell Distribution Width 11.9 % (11.0-16.0); White Blood Count 7.3 X10*3/uL (4.8-10.8)
[2022-10-15 10:49] LABS: Anion Gap 16 (12-20); Blood Urea Nitrogen 41 mg/dL (9-16); Calcium 9.4 mg/dL (8.4-10.2); Carbon Dioxide 22 mmol/L (22-29); Chloride 100 mmol/L (96-108); Estimated Glomerular Filt Rate 34; Magnesium 1.6 mg/dL (1.6-2.6); Phosphorus 4.1 mg/dL (2.7-4.5); Potassium 5.1 mmol/L (3.3-5.1); Sodium 133 mmol/L (135-145)
[2022-10-15 11:06] LABS: Vitamin D 25-OH Total 48.2 ng/mL (>30)
[2022-10-15 11:41] LABS: Appearance Urine Clear; Color Urine Yellow; Glucose Urine UA Negative (Negative); Leukocyte Esterase Urine Large (3+) (Negative); Nitrite Urine Negative (Negative); PH 5.5 (5.0-9.0); Specific Gravity - Urine 1.015 (1.005-1.025); UMIC TRIGGER UA YES; Urine Blood Negative (Negative); Urine Ketones Negative (Negative); Urine Protein 100 (2+) mg/dL (Neg-Trace)
[2022-10-15 11:45] LABS: Bacteria Urine Trace (None Seen); RBC Urine 0-2 /HPF (0-2); WBC Urine >50 /HPF (0-5)
[2022-10-15 12:16] LABS: Total Protein Urine Random 73 mg/dL (<12)
[2022-10-16 16:13] LABS: Calcium (PTHI) 9.5 mg/dL (8.6-10.4); PTHI 48 pg/mL (16-77)
== END 2022-10-15 09:28 | disposition home or self-care (01) ==
LOC: HO.LAB 09:27
PROVIDERS: PCP Family Medicine; Visit Provider Internal Medicine Nephrology
DX: I12.9 Hypertensive chronic kidney disease with stage 1 through stage 4 chronic kidney disease, or unspecified chronic kidney disease (principal); E11.22 Type 2 diabetes mellitus with diabetic chronic kidney disease; N18.32 Chronic kidney disease, stage 3b; R80.1 Persistent proteinuria, unspecified; E11.21 Type 2 diabetes mellitus with diabetic nephropathy
CPT/HCPCS: 36415; 80051; 81001; 82040; 82043; 82306; 82310; 82565; 83735; 83970; 84100; 84156; 84520; 85025; 87086

== ENCOUNTER 2022-11-14 11:43 | Outpatient (REF) | payer MEDICARE, SELFPAY ==
--- NOTE | ~2022-11-14 | XR_ITS ---
EXAMINATION: XR CHEST CLINICAL INFORMATION: Persistent cough and SOB despite 1 week of prednisone azithromycin COMPARISON: None available. TECHNIQUE: 2 views of the chest were obtained. FINDINGS: No significant abnormality is noted involving the heart, lungs, mediastinum, bony thorax or soft tissues. XR/XR chest 2V IMPRESSION: Unremarkable chest examination.
== END 2022-11-14 11:44 | disposition home or self-care (01) ==
LOC: HO.HHCX 11:43
PROVIDERS: Visit Provider Family Medicine
DX: R05.9 Cough, unspecified (principal)
CPT/HCPCS: 71046

== ENCOUNTER 2023-07-09 13:25 | Outpatient (REF) | payer OTHER, SELFPAY ==
--- NOTE | ~2023-07-09 | MM_ITS ---
EXAMINATION: MM SCREENING DIGITAL BREAST TOMOSYNTHESIS, BILATERAL CLINICAL INFORMATION: Screening. Asymptomatic. COMPARISON: Mammography: This study is compared with prior exams dating back to 2019. TECHNIQUE: Digital breast tomosynthesis is performed in both the craniocaudal and mediolateral oblique views along with computer-aided detection (CAD). Synthesized 2D images are generated from the tomosynthesis. FINDINGS: There are scattered areas of fibroglandular density (ACR BI-RADS breast composition Category b). There are no significant masses, abnormal calcifications, or other abnormalities. There are numerous, unchanged, benign calcifications in each breast. MM/MM tomosynthesis screening BI IMPRESSION: No mammographic evidence of malignancy. ASSESSMENT: BI-RADS BI-RADS 2 - Benign Findings RECOMMENDATION: Routine annual mammography screening. 1 year F/U This examination should not preclude the clinical evaluation of a suspicious palpable abnormality. This patient's information was entered into a reminder system with a target due date for their next mammogram.
== END 2023-07-09 13:26 | disposition home or self-care (01) ==
LOC: HO.MAMMO 13:25
PROVIDERS: PCP Family Medicine; Visit Provider Family Medicine
DX: Z12.31 Encounter for screening mammogram for malignant neoplasm of breast (principal)
CPT/HCPCS: 77063; 77067

== ENCOUNTER → 2023-07-09 14:15 | Outpatient (BNV) | payer OTHER, SELFPAY | PROVIDERS: PCP Family Medicine; Visit Provider Radiology Diagnostic Radiology | DX: Z12.31 Encounter for screening mammogram for malignant neoplasm of breast (principal) | CPT/HCPCS: 77063; 77067 ==

== ENCOUNTER 2023-07-28 09:00 | Outpatient (REF) | payer OTHER, SELFPAY ==
[2023-07-28 12:57] LABS: Cholesterol 173 mg/dL (<200); HDL Cholesterol 30 mg/dL (>40); LDL Cholesterol Calculated 89 mg/dL (<100); Triglycerides 270 mg/dL (<150)
== END 2023-07-28 09:01 | disposition home or self-care (01) ==
LOC: HO.HHCL 09:00
PROVIDERS: Visit Provider Family Medicine
DX: E11.22 Type 2 diabetes mellitus with diabetic chronic kidney disease (principal); N18.32 Chronic kidney disease, stage 3b; Z79.4 Long term (current) use of insulin
CPT/HCPCS: 36415; 80061

== ENCOUNTER 2023-10-20 09:25 | Outpatient (REF) | payer OTHER, SELFPAY ==
[2023-10-20 09:48] LABS: MANUAL DIFF FLAG NO
[2023-10-20 10:45] LABS: Basophils Percent Auto 0.8 % (0-2); Eosinophils Absolute Auto 0.4 X10*3/uL (0.0-0.4); Eosinophils Percent Auto 6.7 % (0-4); Hematocrit 34.9 % (37.0-47.0); Hemoglobin 11.7 g/dl (12.0-16.0); Imm Gran Abs Auto 0.02 X10*3/uL (0.00-0.03); Imm Gran Pct Auto 0.4 % (0.0-0.4); Lymphocytes Absolute Auto 1.3 X10*3/uL (1.2-4.9); Lymphocytes Percent Auto 24.3 % (20-40); Mean Corpuscular HGB Conc 33.5 g/dl (31.0-35.0); Mean Corpuscular Hemoglobin 29.5 pg (27.0-33.0); Mean Corpuscular Volume 87.9 fL (80.0-98.0); Mean Platelet Volume 11.6 fL (9.4-12.3); Monocytes Absolute Auto 0.6 X10*3/uL (0.1-1.2); Monocytes Percent Auto 10.6 % (2-11); Neutrophils Percent Auto 57.2 % (45-73); Platelet Count 183 X10*3/uL (160-400); Red Blood Count 3.97 X10*6/uL (4.20-5.50); Red Cell Distribution Width 12.4 % (11.0-16.0); White Blood Count 5.2 X10*3/uL (4.8-10.8)
[2023-10-20 11:15] LABS: Parathyroid Hormone Intact 202.1 pg/mL (8.7-77.1)
[2023-10-20 11:33] LABS: Anion Gap 16 (12-20); Blood Urea Nitrogen 40 mg/dL (9-16); Calcium 9.6 mg/dL (8.4-10.2); Carbon Dioxide 22 mmol/L (22-29); Chloride 100 mmol/L (96-108); Estimated Glomerular Filt Rate 24; Magnesium 1.9 mg/dL (1.6-2.6); Potassium 5.1 mmol/L (3.3-5.1); Sodium 133 mmol/L (135-145); Vitamin D 25-OH Total 53.1 ng/mL (>30)
[2023-10-20 11:43] LABS: Appearance Urine Clear; Color Urine Yellow; Glucose Urine UA >=1000 mg/dL (Negative); Leukocyte Esterase Urine Moderate (2+) (Negative); Nitrite Urine Negative (Negative); PH 6.5 (5.0-9.0); UMIC TRIGGER UA YES; Urine Blood Negative (Negative); Urine Ketones Negative (Negative); Urine Protein Negative (Neg-Trace)
[2023-10-20 11:46] LABS: Bacteria Urine None Seen (None Seen); Hyaline Casts Urine 0-2 /LPF (0-2); RBC Urine 0-2 /HPF (0-2)
[2023-10-20 12:15] LABS: Creatinine Urine 107.69 mg/dL; Microalbum/Creatinine Ratio Ur 33.4 ug/mg cr (<30); Protein/Creatinine Ratio, Ur 0.08 (<0.2); Total Protein Urine Random 9 mg/dL (<12)
== END 2023-10-20 09:26 | disposition home or self-care (01) ==
LOC: HO.LAB 09:25
PROVIDERS: PCP Family Medicine; Visit Provider Internal Medicine Nephrology
DX: E11.21 Type 2 diabetes mellitus with diabetic nephropathy (principal); N18.32 Chronic kidney disease, stage 3b; R80.1 Persistent proteinuria, unspecified
CPT/HCPCS: 36415; 80051; 81001; 82040; 82043; 82306; 82310; 82565; 82570; 83735; 83970; 84100; 84156; 84520; 85025; 87086; 87147

== ENCOUNTER 2024-03-16 13:37 | Outpatient (REF) | payer OTHER, SELFPAY ==
[2024-03-16 16:33] LABS: MANUAL DIFF FLAG NO
[2024-03-16 16:38] LABS: Basophils Absolute Auto 0.1 X10*3/uL (0.0-0.2); Basophils Percent Auto 0.8 % (0-2); Eosinophils Absolute Auto 0.2 X10*3/uL (0.0-0.4); Eosinophils Percent Auto 2.5 % (0-4); Hematocrit 33.7 % (37.0-47.0); Hemoglobin 11.2 g/dl (12.0-16.0); Imm Gran Abs Auto 0.02 X10*3/uL (0.00-0.03); Imm Gran Pct Auto 0.3 % (0.0-0.4); Lymphocytes Absolute Auto 2.2 X10*3/uL (1.2-4.9); Mean Corpuscular HGB Conc 33.2 g/dl (31.0-35.0); Mean Corpuscular Volume 87.3 fL (80.0-98.0); Mean Platelet Volume 11.2 fL (9.4-12.3); Monocytes Absolute Auto 0.4 X10*3/uL (0.1-1.2); Monocytes Percent Auto 5.9 % (2-11); Neutrophils Absolute Auto 4.5 x10*3/uL (2.0-8.3); Neutrophils Percent Auto 60.5 % (45-73); Platelet Count 265 X10*3/uL (160-400); Red Blood Count 3.86 X10*6/uL (4.20-5.50); Red Cell Distribution Width 11.9 % (11.0-16.0); White Blood Count 7.3 X10*3/uL (4.8-10.8)
[2024-03-16 17:02] LABS: Anion Gap 16 (12-20); Blood Urea Nitrogen 38 mg/dL (9-16); Carbon Dioxide 23 mmol/L (22-29); Chloride 103 mmol/L (96-108); Estimated Glomerular Filt Rate 25; Glucose Random 172 mg/dL (60-115); Potassium 4.2 mmol/L (3.3-5.1); Sodium 138 mmol/L (135-145)
[2024-03-16 17:10] LABS: TSH reflex Free T4 0.94 uIU/mL (0.32-4.0)
[2024-03-16 17:26] LABS: Folate 8.4 ng/mL (> or = 4.0); Vitamin B12 645 pg/mL (200-900)
== END 2024-03-16 13:38 | disposition home or self-care (01) ==
LOC: HO.HHCL 13:37
PROVIDERS: Visit Provider Family Medicine
DX: R42 Dizziness and giddiness (principal)
CPT/HCPCS: 36415; 80048; 82607; 82746; 84443; 85025

== ENCOUNTER 2024-04-03 16:20 | Outpatient (REF) | payer OTHER, SELFPAY ==
--- NOTE | ~2024-04-03 | MR_ITS ---
EXAMINATION: MR BRAIN WITHOUT AND WITH CONTRAST CLINICAL INFORMATION: Fall, dizziness and neck pain COMPARISON: None available. TECHNIQUE: Multiplanar, multisequence MRI of the brain was obtained before and after the intravenous administration of 7.5 mL of Gadavist. FINDINGS: There is no focus of restricted diffusion or abnormal susceptibility artifact within the brain parenchyma. The midline structures including the corpus callosum, cerebellar vermis, and pituitary gland are normal in appearance. There is no acute intracranial hemorrhage, mass, mass effect, or extra-axial fluid collection. There is no midline shift or hydrocephalus. The basal subarachnoid cisterns and cerebral sulci are not effaced. The major intracranial flow voids are present, and grossly unremarkable. Suspect cervical myelopathy and degenerative disease at the C1-C2 junction. MR/MR head/brain wo/w con IMPRESSION: 1. No acute intracranial abnormality. 2. Cervical myelopathy and degenerative disease at the C1-C2 junction. Electronically signed by: Maira Crawford MD 04/03/2024 07:57 PM EDT
[2024-04-03] MEDS: gadobutroL 7.5 ML VIAL IVPUSH (17:39)
== END 2024-04-03 16:21 | disposition home or self-care (01) ==
LOC: HO.MRI 16:20
PROVIDERS: PCP Family Medicine; Visit Provider Family Medicine
DX: R42 Dizziness and giddiness (principal); G44.319 Acute post-traumatic headache, not intractable; W19.XXXA Unspecified fall, initial encounter
CPT/HCPCS: 70553; A9585

== ENCOUNTER 2024-04-06 12:28 | Outpatient (REF) | payer OTHER, SELFPAY ==
--- NOTE | ~2024-04-06 | CT_ITS ---
EXAMINATION: CT CERVICAL SPINE WITHOUT CONTRAST CLINICAL INFORMATION: Fall 2 weeks ago. Neck pain. Injury. COMPARISON: None available. TECHNIQUE: Multidetector helical imaging of the cervical spine was obtained without intravenous contrast. Multiple axial reformats and coronal/sagittal reconstructions were created the technologist workstation for review. This CT examination was performed using dose optimization techniques as appropriate, variously including the following: *Automated exposure control. *Adjustment of mA and/or kV according to patient size (this includes techniques or standardized protocols for targeted exams where dose is matched to indication/reason for exam; i.e. extremities or head). *Use of iterative reconstruction technique. DLP: 294 mGy-cm FINDINGS: Atlantooccipital assimilation. Chronic basilar invagination. The foramen magnum measures 1.4 cm in AP dimension. Congenital fusion of C2-C3. Variant articulation of C1-C2 appears in stable chronic alignment. Otherwise, there is anatomic alignment of the vertebral bodies and posterior elements. No evidence of acute fracture or subluxation. The vertebral body heights are maintained. Moderate degenerative disc disease from C5-C7. Partial opacification of the dorsal epidural space from C4-C7. Facet and uncovertebral joint arthropathy leads to osseous encroachment on the neural foramina from C3-C7. There is no prevertebral soft tissue swelling. The thyroid gland and remaining cervical soft tissues are within normal limits. The lung apices demonstrate no abnormalities. CT/CT cervical spine wo IV con IMPRESSION: 1. No evidence of acute fracture or traumatic subluxation of the cervical spine. 2. 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 3. Moderate multilevel degenerative spondyloarthropathy of the cervical spine. Electronically signed by: Steve Carrizales DO 04/06/2024 10:57 PM EDT
== END 2024-04-06 12:29 | disposition home or self-care (01) ==
LOC: HO.CT 12:28
PROVIDERS: PCP Family Medicine; Visit Provider Family Medicine
DX: M54.2 Cervicalgia (principal)
CPT/HCPCS: 72125

== ENCOUNTER 2024-04-20 08:58 | Outpatient (REF) | payer OTHER, SELFPAY ==
[2024-04-20 10:04] LABS: MANUAL DIFF FLAG NO
[2024-04-20 10:39] LABS: Appearance Urine Clear; Color Urine Yellow; Glucose Urine UA 500 mg/dL (Negative); Leukocyte Esterase Urine Small (1+) (Negative); Nitrite Urine Negative (Negative); Specific Gravity - Urine 1.015 (1.005-1.025); UMIC TRIGGER UA YES; Urine Blood Negative (Negative); Urine Ketones Negative (Negative); Urine Protein Trace mg/dL (Neg-Trace)
[2024-04-20 11:05] LABS: Basophils Absolute Auto 0.1 X10*3/uL (0.0-0.2); Eosinophils Absolute Auto 0.4 X10*3/uL (0.0-0.4); Eosinophils Percent Auto 6.3 % (0-4); Hematocrit 37.6 % (37.0-47.0); Hemoglobin 12.3 g/dl (12.0-16.0); Imm Gran Abs Auto 0.01 X10*3/uL (0.00-0.03); Imm Gran Pct Auto 0.2 % (0.0-0.4); Lymphocytes Absolute Auto 1.9 X10*3/uL (1.2-4.9); Lymphocytes Percent Auto 32.5 % (20-40); Mean Corpuscular HGB Conc 32.7 g/dl (31.0-35.0); Mean Corpuscular Hemoglobin 28.9 pg (27.0-33.0); Mean Corpuscular Volume 88.3 fL (80.0-98.0); Mean Platelet Volume 11.1 fL (9.4-12.3); Monocytes Absolute Auto 0.4 X10*3/uL (0.1-1.2); Monocytes Percent Auto 7.1 % (2-11); Neutrophils Absolute Auto 3.1 x10*3/uL (2.0-8.3); Neutrophils Percent Auto 52.9 % (45-73); Platelet Count 225 X10*3/uL (160-400); Red Blood Count 4.26 X10*6/uL (4.20-5.50); Red Cell Distribution Width 11.9 % (11.0-16.0); White Blood Count 5.9 X10*3/uL (4.8-10.8)
[2024-04-20 11:08] LABS: Bacteria Urine None Seen (None Seen); Hyaline Casts Urine 0-2 /LPF (0-2); RBC Urine 0-2 /HPF (0-2); WBC Urine 0-5 /HPF (0-5)
[2024-04-20 11:40] LABS: Creatinine Urine 133.58 mg/dL; Microalbum/Creatinine Ratio Ur 76.3 ug/mg cr (<30); Protein/Creatinine Ratio, Ur 0.16 (<0.2); Total Protein Urine Random 21 mg/dL (<12)
[2024-04-20 11:42] LABS: Albumin Level 4.1 g/dL (3.5-5.0); Anion Gap 15 (12-20); Blood Urea Nitrogen 30 mg/dL (9-16); Calcium 10.2 mg/dL (8.4-10.2); Carbon Dioxide 24 mmol/L (22-29); Chloride 101 mmol/L (96-108); Estimated Glomerular Filt Rate 27; Phosphorus 3.4 mg/dL (2.7-4.5); Potassium 4.5 mmol/L (3.3-5.1); Sodium 135 mmol/L (135-145)
[2024-04-20 11:47] LABS: Parathyroid Hormone Intact 132.5 pg/mL (8.7-77.1)
== END 2024-04-20 08:59 | disposition home or self-care (01) ==
LOC: HO.LAB 08:58
PROVIDERS: PCP Family Medicine; Visit Provider Internal Medicine Nephrology
DX: E11.29 Type 2 diabetes mellitus with other diabetic kidney complication (principal); N18.9 Chronic kidney disease, unspecified; R80.1 Persistent proteinuria, unspecified; N25.0 Renal osteodystrophy
CPT/HCPCS: 36415; 80051; 81001; 82040; 82043; 82306; 82310; 82565; 82570; 83735; 83970; 84100; 84156; 84520; 85025; 87086; 87088; 87186

== ENCOUNTER 2024-07-14 12:35 | Outpatient (REF) | payer OTHER, SELFPAY ==
--- OUTSIDE RECORDS SUMMARY | 2024-07-14 14:43 | XMS_ITS | Encounter Summary ---
Author Organization [facility] Address [address] [place] [address] Care Team Providers Care Transaction Advisory Services Manager Name Role Phone Amy Gilman MD Primary Care Provider [phone] Joshua Mims PharmD Unavailable [phone] Reason for Referral * Imaging (Routine) - Authorized Specialty Diagnoses / Procedures Referred By Contac t Referred To Contact Radiology Diagnoses Osteopenia of neck of femur, unspecified laterality Procedures BD DEXA Axial Amy Gilman MD [address] [place] [address] Phone: tel: fax: [address] Phone: tel: fax: Referral ID Status Reason Start Date Expiration Date V isits Requested Visits Authorized [id number] Authorized 06/25/2024 06/25/2025 1 1 Encounter Details Date Type Department Care Team (Late st Contact Info) Description 06/15/2024 11:15 AM EST Office Visit [facility] [address] [place] [address] [phone] Amy Gilman MD [address] [place], [place] [phone] Essential hypertension (Primary Dx); Stage 3b chronic kidney disease (CMS/HCC); Type 2 diabetes mellitus with stage 3b chronic kidney disease, with long-term current use of insulin (CMS/HCC); Bilateral carotid artery stenosis; PAD (peripheral artery disease) (CMS/HCC); Dyslipidemia; Acute post-traumatic headache, not intractable; Dizziness; Moderate persistent asthma without complication; Osteopenia of neck of femur, unspecified laterality; Dietary counseling; Exercise counseling; Overweight; Chronic anemia; Hypercalcemia Social History Tobacco Use Types Packs/Day Years Used Date Smoking Tobacco: Never Passive Smoke Exposure: Never Smokeless Tobacco: Never Alcohol Use Standard Drinks/Week Comments Never 0 (1 standard drink = 0.6 oz pur e alcohol) Depression Answer Date Recorded Patient Health Questionnaire-9 Score 0 12/24/2022 Housing Stability Answer Date Recorded What is your housing situation today? I have ela cadena 03/16/[address] you li ve. Do you have problems with any of the following? None of the above 03/16/2024 Food Insecurity Answer Date Recorded Within the past 12 months, y ou worried that your food would run out before you got money to buy more: Never True 03/16/2024 Within the past 12 months,th e food you bought just didn't last and you didn't have enough money to get more: Never True 06/2023 Transportation Answer Date Recorded In the past 12 months, has l ack of transportation kept you from medical appts, meetings, work or from getting things needed for daily living? No 03/16/2024 Utilities Answer Date Recorded In the past 12 months, has t he electric, gas, oil or water company threatened to shut off services in your home? No 03/16/2024 Depression Answer Date Recorded Patient Health Questionnaire-2 Score 0 03/16/2024 Internet Access Answer Date Recorded Internet Access Q1 Yes 03/16/2024 Internet Access Q2 Not on file 03/16/2024 Comments Unknown Sex and Gender Information Value Date Recorded Sex Assigned at Female 04/15/2022 10:15 AM EDT Legal Sex Female 10:15 AM EDT Gender Identity Female 04/15/2022 10:15 AM EDT Sexual Orientation Straight 04/15/2022 10 :15 AM EDT documented as of this encounter Last Filed Vital Signs Vital Sign Reading Time Taken Comments Blood Pressure 140/84 06/15/2024 11:26 AM EST Pulse 85 06/15/2024 11:26 AM EST Temperature 36.2 ??C (97.2 ??F) 06/15/2024 11:[address] Respiratory Rate 20 06/15/2024 11:26 AM EST Oxygen Saturation 98% 06/15/2024 11:26 AM EST Inhaled Oxygen Concentration - - Weight 68.8 kg (151 lb 9.6 oz) 06/15/2024 11:26 AM EST Height 157.5 cm (5' 2 ) 06/15/2024 11:26 AM EST Body Mass Index 27.73 06/15/2024 11:26 AM EST documented in this encounter Progress Notes * Amy Gilman MD - 06/15/2024 11:15 AM EST Subjective Loraine Sen is a 74 y.o. female who has diabetes mellitus type 2, hypertension, CKD3, and asthma, and patient presents for follow up of chronic conditions. Background: Our last encounter was 03/16/2024. A1C 7.7%. She reported a fall and dizziness. She stated she had lost consciousness briefly. MRI head and CT neck were ordered. Interval history: MRI head on 03/24/24: No acute intracranial abnormality. Cervical myelopathy and degenerative changes at C1-[address] neck on 04/06/24: No acute fracture or subluxation. 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 Pt was seen by Blackjack Supervisor 04/20/2024, Pt has not downloaded CGM data since 03/2024. Today: Pt states that her headache is better, but she still has a lot of dizziness and fatigue. Pt states she has been sick since February. Pt is not eating as much as she used to but is eating. She reports her BS at home are controlled. She states she has CGM but did not bring the reader with her. Pt states her Sx began after beginning Ozempic. Pt is using 30 units of Lantus. Pt states she has some constipation as well. Review of Systems Constitutional: Positive for fatigue. Negative for activity change, appetite change and fever. Respiratory: Negative for shortness of breath. Cardiovascular: Negative for chest pain. Gastrointestinal: Positive for constipation and nausea. Neurological: Positive for dizziness. Objective Vitals: 06/15/24 1126 BP: 140/84 BP Location: Left arm Patient Position: Sitting BP Cuff Size: Large adult Pulse: 85 Resp: 20 Temp: 97.2 ??F (36.2 ??C) TempSrc: Temporal SpO2: 98% Weight: 151 lb 9.6 oz (68.8 kg) Height: 5' 2 (1.575 m) Physical Exam Constitutional: General: She is not in acute distress. Appearance: Normal appearance. She is not ill-appearing. HENT: Head: Normocephalic and atraumatic. Mouth/Throat: Mouth: Mucous membranes are moist. Eyes: Extraocular Movements: Extraocular movements intact. Pupils: Pupils are equal, round, and reactive to light. Cardiovascular: Rate and Rhythm: Normal rate and regular rhythm. Heart sounds: No murmur heard. Pulmonary: Effort: Pulmonary effort is normal. No respiratory distress. Breath sounds: Normal breath sounds. No wheezing or rhonchi. Skin: General: Skin is warm. Neurological: Mental Status: She is alert. Mental status is at baseline. Psychiatric: Mood and Affect: Mood normal. Results: Lab Results Component Value Date NA 138 03/16/2024 K 4.2 03/16/2024 CL 103 03/16/2024 CO2 23 03/16/2024 BUN 38 (H) 03/16/2024 CREATININE 1.96 (H) 03/16/2024 CRCLCALCPH 36.1 02/28/2021 EGFR 25 03/16/2024 GLUCOSE 172 (H) 03/16/2024 ALT 19 12/01/2020 ALB 4.0 10/15/2022 Lab Results Component Value Date TRIG 270 (H) 07/28/2023 CHOL 173 07/28/2023 LDLCHOLCAL 89 07/28/2023 HDL 30 (L) 07/28/2023 Lab Results Component Value Date HGBA1C 6.5 (A) 06/15/2024 MICROALBUR 549.0 10/15/2022 CREATUR 145.20 10/15/2022 MICROALBCREU 378.0 10/15/2022 Lab Results Component Value Date WBC 7.3 03/16/2024 HGB 11.2 (L) 03/16/2024 HCT 33.7 (L) 03/16/2024 PLT 265 03/16/2024 MCV 87.3 03/16/2024 The 10-year ASCVD risk score (Diego MICHELE, et al., 2019) is: 33.3% Values used to calculate the score: Age: 74 years Sex: Female Is Non- : No Diabetic: Yes Tobacco smoker: No Systolic Blood Pressure: 140 mmHg Is BP treated: Yes HDL Cholesterol: 30 mg/dL Total Cholesterol: 173 mg/dL Screening and Health Care Maintenance: PHQ-2/9 Score: Patient Health Questionnaire-2 Score: 0 (03/16/2024 1:15 PM) Thoughts that you would be better off or hurting yourself in some way: Not at all (03/16/2024 1:15 PM) TAYA-7 Score: No data recorded Health Maintenance Due Topic Date Due Alcohol/Substance Use Screening Never done Hepatitis C Screening Never done RSV Patients and Patients Aged 60 years or older (1 - Risk 60-74 years 1-dose series) Never done COVID-19 Vaccine ( season) 2024 Diabetes: Foot Exam 06/17/2024 Assessment/Plan Problem List Items Addressed This Visit Chronic anemia -baseline hematocrit 34-35 -anemia of chronic disease Carotid artery stenosis -Last carotid US on 07/22/23 right ICA 16-49% stenosis; left ICA 16-49% stenosis -continue working on risk factor management Chronic kidney disease, stage III (moderate) (CMS/HCC) -followed by division commander, Dr. Sagastume -on sodium bicarbonate for metabolic acidosis and patiromer for hyperkalemia -Avoid nephrotoxic drugs -Renal dose meds -Continue SGLT2i Dyslipidemia -Last lipid profile 07/28/23 -Current mediation: Atorvastin 80 mg at bedtime; ezetimbe 10 mg at bedtime -She is on high-intensity statin therapy - Continue lifestyle modifiations Relevant Orders Lipid Panel with Reflex to Direct LDL Essential hypertension - Primary -Goal BP < 140/90 per JNC-8, <130/80 per ACC/AHA guideline (Tx threshold > 130/80) -BP elevated today -Hx of refractory hypertension -Comanaged with division commander, security risk analyst, and pharmacist -Continue lisinopril 40 mg daily -Continue amlodipine to 2.5 mg daily -Continue doxazosin to 8 mg daily -Continue furosemide 10 mg daily, plan to discontinue depending on her lab. -Continue metoprolol succinate 200 mg daily Previously self-discontinued many antihypertensives due to intolerance. She had intolerance to amlodipine, nifedipine, hydralazine, clonidine, diltiazem, losartan and HCTZ. Now appears to be tolerating amlodipine. Will monitor her intolerance closely. [employer]: ELLA, last seen in Jul 2023 Blackjack Supervisor: Dr. Sagastume, last seen in October 2022 Echocardiogram: TTE 01/29/22 EF 60%. Mild to moderate tricuspid regurgitation. Mild pulm HYPERTENSION Consider evaluating for primary aldosteronism (K is normal-high, so unlikely). Consider decreasing pill-burden. Follow-up in 3 mo or sooner prn Relevant Orders Comprehensive Metabolic Panel Hypercalcemia - secondary hyperparathyroidism - normal vitamin D level in Apr 2024 - followed by division commander - continue vitamin D Asthma - Most recent exacerbation: 10/2022, Tx with azithromycin and prednisone -last CXR on 11/2022 was normal - continue fluticasone (Flovent) (although patient does not seem to be using it daily) - continue albuterol inhaler + nebulizer as needed Type 2 diabetes mellitus ([facility] Dx: 2002. - Complication: Microalbuminuria / CKD. Associated medical conditions: HTN; dyslipidemia; CKD; anemia; - A1C 6.5% on 06/15/24, improved from 7% in Mar 2024, yet with GLP1RA adverse effect - Continue bolus insulin Humalog 17 units in the morning, 12-14 units with lunch and 8-10 units with dinner - Continue basal insulin 30 units at bedtime (Lantus) - Continue empagliflozin 10 mg daily - Decrease semaglutide 0.5 mg weekly - Treatment Hx: Invokana which was discontinued by pt (prescribed by division commander); discontinued dulaglutide due to adverse reaction - Continue diligent SMBG, current medication, and lifestyle modifications. - Last eye exam: 04/21/23 - Last foot exam: Jun 2023, high risk due to PAD - Last microalbumin test: 04/20/24 UACR 78 (done at division commander's office) - Last lipid profile: 07/28/23 - Last dental exam: Recommended to schedule Immunizations: up to date Relevant Orders POCT Glucose (Completed) POCT HGB A1C (Completed) Osteopenia - last DEXA in Jun 2022 The lowest T-score -1.9 - continue calcium supplementation - continue weight-bearing exercise - repeat DEXA in Jun 2024. - consider bisphophanate, but precaution with CKD Relevant Orders BD DEXA Axial PAD (peripheral artery disease) (CMS/HCC) - following with [facility] - subclavian artery stenosis and carotid stenosis - last US in Jul 2023 - continue working on lifestyle modifications / risk factor management Acute post-traumatic headache, not intractable - MRI head on 03/24/24: No acute intracranial abnormality. Cervical myelopathy and degenerative changes at C1-2 junction. - CT neck on 04/06/24: No acute fracture or subluxation. 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 Dizziness - multifactorial, yet poor nutritional status / inadequate nutrition seems to be a major contributing factor - patient would like to decrease the dose of Semaglutide. Agreed with the plan Relevant Orders CBC auto differential Ferritin Iron And Total Iron Binding Capacity Reticulocyte Count Other Visit Diagnoses Dietary counseling Exercise counseling Overweight Allergies Allergen Reactions Nifedipine Swelling Peripheral Edema Clonidine Diltiazem Hydrochlorothiazide Metformin Diarrhea Current Outpatient Medications Medication Instructions acetaminophen (Tylenol 8 Hour) 650 MG ER tablet TAKE 2 TABLETS BY MOUTH EVERY 8 HOURS NEEDED SWALLOW WHOLE WITH WATER albuterol 2.5 mg, Nebulization, Every 4 hours PRN amLODIPine (NORVASC) 2.5 mg, Oral, Every morning Aspirin Low Dose 81 mg, Oral, Nightly atorvastatin (Lipitor) 80 MG tablet TAKE 1 TABLET BY MOUTH AT BEDTIME cetirizine (ZyrTEC) 5 MG tablet TAKE 1 TABLET BY MOUTH ONCE DAILY NEEDED FOR ALLERGIES. cholecalciferol (Vitamin D-3) 25 MCG tablet TAKE 1 TABLET BY MOUTH EVERY MORNING Continuous Blood Gluc Director Oracle Database (FreeStyle Starla 2 [place]) device Use as directed Continuous Glucose Sensor (FreeStyle Starla 2 Sensor) [facility] Use as directed cromolyn (Opticrom) 4 % ophthalmic solution Instill 1 to 2 drops to each eye 4 to 6 times a day as needed Diclofenac Sodium 1 % gel APPLY 2 GRAMS TOPICALLY TO AFFECTED AREA(S) TWICE DAILY doxazosin (CARDURA) 8 mg, Oral, Nightly empagliflozin (JARDIANCE) 10 mg, Oral, Every morning ezetimibe (ZETIA) 10 mg, Oral, Daily Flovent HFA 220 MCG/ACT inhaler USE 1 PUFF TWICE DAILY. RINSE MOUTH AFTER USING. furosemide (Lasix) 20 MG tablet TAKE 1/2 TABLET BY MOUTH EVERY MORNING gabapentin (Neurontin) 100 MG capsule TAKE 1 CAPSULE BY MOUTH TWICE DAILY IN THE MORNING AND IN THEEVENING glucose 4 g chewable tablet Chew 4 tablets by mouth as needed for hypoglycemia. glucose blood (FreeStyle Precision Neno Test) test strip USE TO TEST BLOOD SUGAR UP TO THREE TIMES DAILY NEEDED FOR LOW BLOOD SUGAR insulin glargine (Lantus SoloStar) 100 UNIT/ML pen INJECT 33 UNITS SUBCUTANEOUSLY AT 8 IN THE EVENING. Lancets (OneTouch Delica Plus [id number]) misc Use three times daily as needed lisinopril 20 mg, Oral, Every morning magnesium oxide (Mag-Ox) 400 MG tablet TAKE 1 TABLET BY MOUTH TWICE DAILY IN THE MORNING AND IN THEEVENING metoprolol succinate XL (Toprol-XL) 200 MG 24 hr tablet Do not crush or chew.TAKE 1 TABLET BY MOUTHEVERY MORNING montelukast (Singulair) 10 MG tablet TAKE 1 TABLET BY MOUTH EVERY EVENING Pentips 32G X 4 MM misc USE FOUR TIMES DAILY TO INJECT LANTUS AND HUMALOG ProAir HFA 108 (90 Base) MCG/ACT inhaler INHALE 2 PUFFS BY MOUTH EVERY 4 TO 6 HOURS NEEDED FOR DIFFICULTY BREATHING UP TO FOUR TIMES DAILY semaglutide (OZEMPIC) 0.5 mg, Subcutaneous, Weekly sodium bicarbonate 650 MG tablet TAKE 1/2 TABLET BY MOUTH THREE TIMES DAILY IN THE MORNING, EVENINGAND BEDTIME Follow-up: 3 months or sooner if any problem arises. Scribe Attestation: By signing my name below, Maria Victoria Yoshi, attest that this documentation has been prepared under the direction of Amy Gilman MD. documented in this encounter Miscellaneous Notes * Assessment & Plan Note - Amy Gilman MD - 06/25/2024 6:26 AM ESTAssociated Problem(s): Dizziness - multifactorial, yet poor nutritional status / inadequate nutrition seems to be a major contributing factor - patient would like to decrease the dose of Semaglutide. Agreed with the plan * Assessment & Plan Note - Amy Gilman MD - 06/25/2024 6:24 AM ESTAssociated Problem(s): Dyslipidemia -Last lipid profile 07/28/23 -Current mediation: Atorvastin 80 mg at bedtime; ezetimbe 10 mg at bedtime -She is on high-intensity statin therapy - Continue lifestyle modifiations * Assessment & Plan Note - Amy Gilman MD - 06/25/2024 6:24 AM ESTAssociated Problem(s): Hypercalcemia - secondary hyperparathyroidism - normal vitamin D level in Apr 2024 - followed by division commander - continue vitamin D * Assessment & Plan Note - Amy Gilman MD - 06/25/2024 6:23 AM ESTAssociated Problem(s): Chronic anemia -baseline hematocrit 34-35 -anemia of chronic disease * Assessment & Plan Note - Amy Gilman MD - 06/25/2024 6:17 AM ESTAssociated Problem(s): Osteopenia - last DEXA in Jun 2022 The lowest T-score -1.9 - continue calcium supplementation - continue weight-bearing exercise - repeat DEXA in Jun 2024. - consider bisphophanate, but precaution with CKD * Assessment & Plan Note - Aym Gilman MD - 06/25/2024 6:12 AM ESTAssociated Problem(s): Asthma - Most recent exacerbation: 10/2022, Tx with azithromycin and prednisone -last CXR on 11/2022 was normal - continue fluticasone (Flovent) (although patient does not seem to be using it daily) - continue albuterol inhaler + nebulizer as needed * Assessment & Plan Note - Amy Gilman MD - 06/25/2024 6:11 AM ESTAssociated Problem(s): Acute post-traumatic headache, not intractable - MRI head on 03/24/24: No acute intracranial abnormality. Cervical myelopathy and degenerative changes at C1-2 junction. - CT neck on 04/06/24: No acute fracture or subluxation. 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 * Assessment & Plan Note - Maria Victoria Belle - 06/15/2024 12:14 PM ESTAssociated Problem(s): Type 2 diabetes mellitus (CMS/HCC) Dx: 2002. - Complication: Microalbuminuria / CKD. Associated medical conditions: HTN; dyslipidemia; CKD; anemia; - A1C 6.5% on 06/15/24, improved from 7% in Mar 2024, yet with GLP1RA adverse effect - Continue bolus insulin Humalog 17 units in the morning, 12-14 units with lunch and 8-10 units with dinner - Continue basal insulin 30 units at bedtime (Lantus) - Continue empagliflozin 10 mg daily - Decrease semaglutide 0.5 mg weekly - Treatment Hx: Invokana which was discontinued by pt (prescribed by division commander); discontinued dulaglutide due to adverse reaction - Continue diligent SMBG, current medication, and lifestyle modifications. - Last eye exam: 04/21/23 - Last foot exam: Jun 2023, high risk due to PAD - Last microalbumin test: 04/20/24 UACR 78 (done at division commander's office) - Last lipid profile: 07/28/23 - Last dental exam: Recommended to schedule Immunizations: up to date * Assessment & Plan Note - Maria Victoria Belle - 06/15/2024 12:13 PM ESTAssociated Problem(s): Chronic kidney disease, stage III (moderate) ([facility]) -followed by division commander, Dr. Sagastume -on sodium bicarbonate for metabolic acidosis and patiromer for hyperkalemia -Avoid nephrotoxic drugs -Renal dose meds -Continue SGLT2i * Assessment & Plan Note - Maria Victoria Belle - 06/15/2024 12:13 PM ESTAssociated Problem(s): PAD (peripheral artery disease) ([facility]) - following with [facility] - subclavian artery stenosis and carotid stenosis - last US in Jul 2023 - continue working on lifestyle modifications / risk factor management * Assessment & Plan Note - Maria Victoria Belle - 06/15/2024 12:13 PM ESTAssociated Problem(s): Essential hypertension -Goal BP < 140/90 per JNC-8, <130/80 per ACC/AHA guideline (Tx threshold > 130/80) -BP elevated today -Hx of refractory hypertension -Comanaged with division commander, security risk analyst, and pharmacist -Continue lisinopril 40 mg daily -Continue amlodipine to 2.5 mg daily -Continue doxazosin to 8 mg daily -Continue furosemide 10 mg daily, plan to discontinue depending on her lab. -Continue metoprolol succinate 200 mg daily Previously self-discontinued many antihypertensives due to intolerance. She had intolerance to amlodipine, nifedipine, hydralazine, clonidine, diltiazem, losartan and HCTZ. Now appears to be tolerating amlodipine. Will monitor her intolerance closely. [employer]: ELLA, last seen in Jul 2023 Blackjack Supervisor: Dr. Sagastume, last seen in October 2022 Echocardiogram: TTE 01/29/22 EF 60%. Mild to moderate tricuspid regurgitation. Mild pulm HYPERTENSION Consider evaluating for primary aldosteronism (K is normal-high, so unlikely). Consider decreasing pill-burden. Follow-up in 3 mo or sooner prn * Assessment & Plan Note - Maria Victoria Belle - 06/15/2024 12:13 PM ESTAssociated Problem(s): Carotid artery stenosis -Last carotid US on 07/22/23 right ICA 16-49% stenosis; left ICA 16-49% stenosis -continue working on risk factor management documented in this encounter Plan of Treatment Upcoming Encounters Date Type Department Care Team (Late st Contact Info) Description 07/16/2024 9:30 AM EST Telemedicine [facility] [address] [place] [address] Joshua Mims, PharmD [address] [place] [address] 10/21/2024 3:00 PM EDT Office Visit [facility] [address] [place] [address] Kaia Mann, BETTYE [address] [place] [address] Scheduled Orders Name Type Priority Associated Diagnoses Orde r Schedule CBC auto differential Lab Routine Dizziness Expected: 06/15/2024 (Approximate), Expires: 06/15/2025 Ferritin Lab Routine Dizziness Expected: 06/15/2024 (Approximate), Expires: 06/15/2025 Iron And Total Iron Binding Capacity Lab Routine Dizziness Expected: 06/15/2024, Expires: 06/15/2025 Reticulocyte Count Lab Routine Dizziness Expected: 06/15/2024, Expires: 06/15/2025 BD DEXA Axial Imaging Routine Osteopenia of neck of femur, unspecified laterality Expected: 06/25/2024 (Approximate), Expires: 06/25/2025 Lipid Panel with Reflex to Direct LDL Lab Routine Dyslipidemia Expected: 08/23/2024 (Approximate), Expires: 06/25/2025 Comprehensive Metabolic Panel Lab Routine Essential hypertension Expected: 08/23/2024, Expires: 06/25/2025 documented as of this encounter Goals Goal Patient Goal Type Associated Problems Recent Progress Patient-Stated? Author Blood Pressure < 140/90 Blood Pressure 146/88(2024 10:05 AM EST) No Johsua Mims, PharmSowmya Hemoglobin A1c < 7 Result Component 6.5( 11:27 AM EST) No Joshua Mims, Tana Note: Age + HTN, CKD, Hx Stroke make more relaxed goal (8%) reasonable documented as of this encounter Procedures Procedure Name Priority Date/Time Associated Diagnosis Comments POCT GLYCATED HEMOGLOBIN, TOTAL Routine 06/15/2024 11:27 AM EST Type 2 diabetes mellitus with stage 3b chronic kidney disease, with long-term current use of insulin ([facility]) POCT GLUCOSE Routine 06/15/2024 11:27 AM EST Type 2 diabetes mellitus with stage 3b chronic kidney disease, with long-term current use of insulin ([facility]) documented in this encounter Results * (ABNORMAL) POCT HGB A1C (06/15/2024 11:27 AM EST) Hemoglobin A1C 6.5(A) 4.0 - 6.0 % QC Media Lot # [id number] Lot# Expiration Date Blood 06/15/2024 11:2 7 AM EST Amy Gilman MD POINT OF CARE TEST ENTER/EDIT OR DERABLES Final Result * POCT Glucose (06/15/2024 11:27 AM EST) Glucose Blood, POC 183 60 - 200 mg/dL QC Media Lot # [id number] Lot# Expiration Date [id number] Blood Capillary blood specimen / Unknown 06/15/2024 11:27 AM EST Amy Gilman MD POINT OF CARE TEST ENTER/EDIT OR DERABLES Final Result documented in this encounter Visit Diagnoses Diagnosis Essential hypertension- Primary Unspecified essential hypertension Stage 3b chronic kidney disease ([facility]) Type 2 diabetes mellitus with stage 3b chronic kidney disease, with long-term current use of insulin ([facility]) Bilateral carotid artery stenosis Occlusion and stenosis of carotid artery without mention of cerebral infarction PAD (peripheral artery disease) ([facility]) Unspecified peripheral vascular disease Dyslipidemia Other and unspecified hyperlipidemia Acute post-traumatic headache, not intractable Dizziness Dizziness and giddiness Moderate persistent asthma without complication Osteopenia of neck of femur, unspecified laterality Dietary counseling Dietary surveillance and counseling Exercise counseling Overweight Chronic anemia Unspecified anemia Hypercalcemia documented in this encounter Additional Health Concerns Assessment Noted Time PHQ-9 Depression Total Score: 0 12/25/19 23 1:34 PM EDT documented as of this encounter Care Teams Transaction Advisory Services Manager Relationship Specialty Start Date End Date Amy Gilman MD [address] [place] [address] PCP - General Family Medicine 06/16/18 Joshua Mims, MerrickD [address] [place] [address] Pharmacist Internal Medicine 05/05/23 documented as of this encounter
--- OUTSIDE RECORDS SUMMARY | 2024-07-14 14:43 | XMS_ITS | Encounter Summary ---
Author Organization [facility] Address [address] [place] [address] [address] [address] Care Team Providers Care Early Childhood Associate Teacher Name Role Phone Amy Gilman MD Primary Care Provider [phone] Joshua Mims PharmD Unavailable [phone] Encounter Details Date Type Department Care Team (Latest Contact Info) Description 02/07/2022 Abstract [facility] CONVERSIONS Dental, Provider, DDS Social History Tobacco Use Types Packs/Day Years Used Date Smoking Tobacco: Never Assessed Comments Unknown Sex and Gender Information Value Date Recorded Sex Assigned at Female 04/15/2022 10:15 AM EDT Legal Sex Female 10:15 AM EDT Gender Identity Female 04/15/2022 10:15 AM EDT Sexual Orientation Straight 04/15/2022 10 :15 AM EDT documented as of this encounter Plan of Treatment Upcoming Encounters Date Type Department Care Team (Late st Contact Info) Description 07/16/2024 9:30 AM EST Telemedicine [facility] MEDICINE [address] [place] [address] Joshua Mims, PharmD [address] [place] [address] 10/21/2024 3:00 PM EDT Office Visit [facility] OPTOMETRY [address] [place] [address] Kaia Mann OD [address] [place] [address] documented as of this encounter Visit Diagnoses Not on filedocumented in this encounter Care Teams Early Childhood Associate Teacher Relationship Specialty Start Date End Date Amy Gilman MD [address] [place] [address] PCP - General Family Medicine 06/16/18 Joshua Mims, MerrickD [address] [place] [address] Pharmacist Internal Medicine 05/05/23 documented as of this encounter
--- OUTSIDE RECORDS SUMMARY | 2024-07-14 14:43 | XMS_ITS | Encounter Summary ---
Author Organization [facility] Address [address] [facility] [address] [place] [address] Phone Care Team Providers Care Plaster Form Maker Name Role Phone Amy Gilman MD Primary Care Provider [phone] Reason for Visit * Reason Onset Date Comments Med Refill 06/28/2024 Encounter Details Date Type Department Care Team (Late Contact Info) Description 06/28/2024 Refill [facility] [address] [facility] [address] [place] [address] Karen Marino MA [address] [facility] [address] [place] [address] Stage 3b chronic kidney disease (HCC); Renal disorder due to type 2 diabetes mellitus <Diabetic nephropathy> (HCC); Essential hypertension Social History Tobacco Use Types Packs/Day Years Used Date Smoking Tobacco: Former Cigarettes Smokeless Tobacco: Former Comments:Smoking History Inf o:Every day Alcohol Use Standard Drinks/Week Comments No 0 (1 standard drink = 0.6 oz pur e alcohol) Comments Unknown Sex and Gender Information Value Date Recorded Sex Assigned at Not on file Legal Sex Female 5:09 PM EST Gender Identity Not on file Sexual Orientation Not on file documented as of this encounter Plan of Treatment Upcoming Encounters Date Type Department Care Team (Late st Contact Info) Description 11/10/2024 2:00 PM EDT Office Visit [facility] [address] [facility] [address] [place] [address] Anand Sagastume MD [address] [facility] [address] [place] [address] documented as of this encounter Visit Diagnoses Diagnosis Stage 3b chronic kidney disease (HCC) Renal disorder due to type 2 diabetes mellitus <Diabetic nephropathy> (HCC) Essential hypertension documented in this encounter Care Teams Plaster Form Maker Relationship Specialty Start Date End Date Amy Gilman MD [address] [place] [address] PCP - General 06/26/20 documented as of this encounter
--- OUTSIDE RECORDS SUMMARY | 2024-07-14 14:43 | XMS_ITS | Encounter Summary ---
Author Organization [employer] Address [address] [facility] 7t [place] [address] Care Team Providers Care Cement Mason Name Role Phone Amy Gilman MD Primary Care Provider [phone] Joshua iMms PharmD Unavailable [phone] Reason for Visit * Reason Comments Med Refill Encounter Details Date Type Department Care Team ([facility] st Contact Info) Description 03/11/2024 Refill [facility] [address] [place], [place] [phone] Joshua Mims, PharmD [address] [place], [place] [phone] Type 2 diabetes mellitus with stage 3b chronic kidney disease, with long-term current use of insulin ([facility]) Social History Tobacco Use Types Packs/Day Years Used Date Smoking Tobacco: Never Passive Smoke Exposure: Never Smokeless Tobacco: Never Alcohol Use Standard Drinks/Week Comments Never 0 (1 standard drink = 0.6 oz pur e alcohol) Depression Answer Date Recorded Patient Health Questionnaire-9 Score 0 12/24/2022 Housing Stability Answer Date Recorded What is your housing situation today? I have ela cadena 04/01/[address] you li ve. Do you have problems with any of the following? None of the above 04/01/2023 Food Insecurity Answer Date Recorded Within the past 12 months, y ou worried that your food would run out before you got money to buy more: Never True 04/01/2023 Within the past 12 months,th e food you bought just didn't last and you didn't have enough money to get more: Never True Transportation Answer Date Recorded In the past 12 months, has l ack of transportation kept you from medical appts, meetings, work or from getting things needed for daily living? No 04/01/2023 Utilities Answer Date Recorded In the past 12 months, has t he electric, gas, oil or water company threatened to shut off services in your home? No 04/01/2023 Depression Answer Date Recorded Patient Health Questionnaire-2 Score 0 12/24/2022 Comments Unknown Sex and Gender Information Value Date Recorded Sex Assigned at Female 04/15/2022 10:15 AM EDT Legal Sex Female 10:15 AM EDT Gender Identity Female 04/15/2022 10:15 AM EDT Sexual Orientation Straight 04/15/2022 10 :15 AM EDT documented as of this encounter Plan of Treatment Upcoming Encounters Date Type Department Care Team (Late st Contact Info) Description 07/16/2024 9:30 AM EST Telemedicine [facility] [address] [place] [address] Joshua Mims PharmD [address] [place] [address] 10/21/2024 3:00 PM EDT Office Visit [facility] OPTOMETRY [address] [place] [address] Kaia Mann, OD [address] [place] [address] documented as of this encounter Goals Goal Patient Goal Type Associated Problems Recent Progress Patient-Stated? Author Blood Pressure < 140/90 Blood Pressure 146/88(2024 10:05 AM EST) No Joshua Mims PharmD Hemoglobin A1c < 7 Result Component 6.5( 11:27 AM EST) No Joshua Mims PharmD Note: Age + HTN, CKD, Hx Stroke make more relaxed goal (8%) reasonable documented as of this encounter Visit Diagnoses Diagnosis Type 2 diabetes mellitus with stage 3b chronic kidney disease, with long-term current use of insulin ([facility]) documented in this encounter Additional Health Concerns Assessment Noted Time PHQ-9 Depression Total Score: 0 12/25/19 23 1:34 PM EDT documented as of this encounter Care Teams Cement Mason Relationship Specialty Start Date End Date Amy Gilman MD [address] [place] [address] PCP - General Family Medicine 06/16/18 Joshua Mims, MerrickD [address] [place] [address] Pharmacist Internal Medicine 05/05/23 documented as of this encounter
--- OUTSIDE RECORDS SUMMARY | 2024-07-14 14:43 | XMS_ITS | Encounter Summary ---
Author Organization [employer] [facility] Address [address] [facility] [address] [place] [address] Care Team Providers Care Office Support Associate Name Role Phone Amy Gilman MD Primary Care Provider [phone] Joshua Mims PharmD Unavailable [phone] Reason for Referral * Consultation (Routine) - Authorized Specialty Diagnoses / Procedures Referred By Oscar shook Referred To Contact Pharmacy Diagnoses Type 2 diabetes mellitus with stage 3b chronic kidney disease, with long-term current use of insulin (CMS/HCC) Essential hypertension Moderate persistent asthma without complication Amy Gilman MD [address] [place] [address] Phone: tel: fax: Referral ID Status Reason Start Date Expiration Date Visits Requested Visits Authorized [id number] Authorized Consult and Treat 04/27/2024 04/27/2025 6 6 Encounter Details Date Type Department Care Team (Late st Contact Info) Description 04/27/2024 Orders Only [facility] [address] [place] [address] Amy Gilman MD [address] [place] [address] Type 2 diabetes mellitus with stage 3b chronic kidney disease, with long-term current use of insulin (CMS/HCC) (Primary Dx); Essential hypertension; Moderate persistent asthma without complication Social History Tobacco Use Types Packs/Day Years [...] Info) Description 07/16/2024 9:30 AM EST Telemedicine [facility] MED[facility]INE [address] [place] [address] Joshua Mims, PharmD [address] [place] [address] 10/21/2024 3:00 PM EDT Office Visit [facility] OPTOMETRY [address] [place] [address] Kaia Mann, BETTYE [address] [place] [address] Scheduled Referrals Name Type Priority Associated Diagnoses Orde r Schedule Referral to Pharmacy CDTM Outpatient Referral Routine Type 2 diabetes mellitus with stage 3b chronic kidney disease, with long-term current use of insulin ([facility]) Essential hypertension Moderate persistent asthma without complication Ordered: 04/27/2024 documented as of this encounter Goals Goal [...] disease, with long-term current use of insulin ([facility])- Primary Essential hypertension Unspecified essential hypertension Moderate persistent asthma without complication documented in this encounter Additional Health Concerns Assessment Noted Time PHQ-9 Depression Total Score: 0 12/25/19 23 1:34 PM EDT documented as of this encounter Care Teams Office Support Associate Relationship Specialty Start Date End Date Amy Gilman MD [address] [place] [address] PCP - General Family Medicine 06/16/18 Joshua Mims PharmD [address] [place] [address] Pharmacist Internal Medicine 05/05/23 documented as of this encounter
--- OUTSIDE RECORDS SUMMARY | 2024-07-14 14:43 | XMS_ITS | Encounter Summary ---
Author Organization [employer] [facility] Address [address] [place] [address] [address] [place] [address] Care Team Providers Care Automotive Professional Name Role Phone Amy Gilman MD Primary Care Provider [phone] Joshua Mims PharmD Unavailable [phone] Encounter Details Date Type Department Care Team (Late st Contact Info) Description 06/13/2022 Abstract [facility] MEDICINE [address] [place] [address] Amy Gilman MD [address] [place] [phone] Social History Tobacco Use Types Packs/Day Years Used Date Smoking Tobacco: Never Passive Smoke Exposure: Never Smokeless Tobacco: Never Comments Unknown Sex and Gender Information Value Date Recorded Sex Assigned at Female 04/15/2022 10:15 AM EDT Legal Sex Female 10:15 AM EDT Gender Identity Female 04/15/2022 10:15 AM EDT Sexual Orientation Straight 04/15/2022 10 :15 AM EDT COVID-19 Exposure Response Date Recorded In the last 10 days, have moises u been in contact with someone who was confirmed or suspected to have Coronavirus/COVID-19? No / Unsure 06/13/2022 11:13 AM EST documented as of this encounter Plan of Treatment Upcoming Encounters Date Type Department Care Team (Late st Contact Info) Description 07/16/2024 9:30 AM EST Telemedicine [facility] MEDICINE [address] [place] [phone] Joshua Mims, PharmD [address] [place], [place] [phone] 10/21/2024 3:00 PM EDT Office Visit [facility] OPTOMETRY [address] [place] [address] Kaia Mann, OD [address] [place] [address] documented as of this encounter Visit Diagnoses Not on filedocumented in this encounter Care Teams Automotive Professional Relationship Specialty Start Date End Date Amy Gilman MD [address] [place] [address] PCP - General Family Medicine 06/16/18 Joshua Mims, MerrickD [address] [place], [place] [phone] Pharmacist Internal Medicine 05/05/23 documented as of this encounter
--- OUTSIDE RECORDS SUMMARY | 2024-07-14 14:43 | XMS_ITS | Encounter Summary ---
Author Organization [employer] Address [address] [facility] 7t [place] [address] Care Team Providers Care Roll Cleaner Name Role Phone Amy Gilman MD Primary Care Provider [phone] Joshua Mims PharmD Unavailable [phone] Encounter Details Date Type Department Care Team (Latest Contact Info) Description 07/01/2024 Travel Social History Tobacco Use Types Packs/Day Years [...] Info) Description 07/16/2024 9:[address] [facility] MEDICINE [address] [place] [address] Joshua Mims PharmD [address] [place] [address] 10/21/2024 3:00 PM EDT Office Visit [facility] OPTOMETRY [address] [place], [place] [phone] Kaia Mann, OD [address] [place] [address] documented as of this encounter Goals Goal [...] Diagnoses Not on filedocumented in this encounter Additional Health Concerns Assessment Noted Time PHQ-9 Depression Total Score: 0 12/25/19 23 1:34 PM EDT documented as of this encounter Care Teams Roll Cleaner Relationship Specialty Start Date End Date Amy Gilman MD [address] [place] [address] PCP - General Family Medicine 06/16/18 Joshua Mims PharmD [address] [place] [address] Pharmacist Internal Medicine 05/05/23 documented as of this encounter
--- OUTSIDE RECORDS SUMMARY | 2024-07-14 14:43 | XMS_ITS | Encounter Summary ---
Author Organization [employer] Address [address] [facility] 7t [place] [address] Care Team Providers Care Supervisor Jewelry Department Name Role Phone Amy Gilman MD Primary Care Provider [phone] Joshua Mims PharmD Unavailable [phone] Reason for Visit * Reason Onset Date Comments Call Back Request 04/23/2024 Encounter Details Date Type Department Care Team ([facility] st Contact Info) Description 04/23/2024 Telephone [facility] MEDICINE [address] [place], [place] [phone] Amy Gilman MD [address] [place] [address] Call Back Request Social History Tobacco Use Types Packs/Day Years [...] AM EDT documented as of this encounter Miscellaneous Notes * Telephone Encounter - Joshua Mims PharmD - 04/26/2024 3:52 PM EST Pharmacist was out of office 04/23/2024. Pharmacist attempted to return call today, 04/26/2024, twice to number [phone]. There was no answer and no option to leave a voicemail for both attempts.. * Telephone Encounter - Shelton Lyle - 04/23/2024 2:10 PM EST Pt requesting call back from Joshua documented in this encounter Plan of Treatment Upcoming Encounters Date Type Department Care Team (Late st Contact Info) Description 07/16/2024 9:30 AM EST Telemedicine [facility] MEDICINE [address] [place] [address] Joshua Mims, Tana [address] [place] [address] 10/21/2024 3:00 PM EDT Office Visit [facility] OPTOMETRY [address] [place] [address] Kaia Mann, OD [address] [place] [address] documented as of this encounter Goals Goal [...] Time PHQ-9 Depression Total Score: 0 12/25/19 1:34 PM EDT documented as of this encounter Care Teams Supervisor Jewelry Department Relationship Specialty Start Date End Date Amy Gilman MD [address] [place] [address] PCP - General Family Medicine 06/16/18 Joshua Mims, Tana [address] [place] [address] Pharmacist Internal Medicine 05/05/23 documented as of this encounter
--- OUTSIDE RECORDS SUMMARY | 2024-07-14 14:43 | XMS_ITS | Clinical Summary ---
Author Organization [employer] Address [address] [place] [address] Care Team Providers Care Manager Equipment Name Role Phone Amy Gilman MD Primary Care Provider [phone] Joshua Mims PharmD Unavailable [phone] Allergies Active Allergy Reactions Criticality Noted Date Comments Clonidine 08/28/2011 Diltiazem 08/28/2011 Hydrochlorothiazide 08/28/2011 Metformin Diarrhea 03/04/2018 Nifedipine Swelling Medium 08/28/2011 Peripheral Edema Medications sodium bicarbonate 650 MG tablet TAKE 1/2 TABLET BY MOUTH THREE TIMES DAILY IN THE MORNING, EVENING AND BEDTIME Active lisinopril 20 MG tablet Take 20 mg by mouth in the morning. Active gabapentin (Neurontin) 100 MG capsule TAKE 1 CAPSULE BY MOUTH TWICE DAILY IN THE MORNING AND IN THE EVENING Active ProAir HFA 108 (90 Base) MCG/ACT inhaler INHALE 2 PUFFS BY MOUTH EVERY 4 TO 6 HOURS NEEDED FOR DIFFICULTY BREATHING UP TO FOUR TIMES DAILY Active acetaminophen (Tylenol 8 Hour) 650 MG ER tablet TAKE 2 TABLETS BY MOUTH EVERY 8 HOURS NEEDED SWALLOW WHOLE WITH WATER Active albuterol (2.5 MG/3ML) 0.083% nebulizer solutionIndicat ions:Moderate persistent asthma without complication Take 3 mL (2.5 mg) by nebulization every 4 (four) hours if needed for wheezing. 75 mL 3 023 Active Diclofenac Sodium 1 % gelIndications: Pain APPLY 2 GRAMS TOPICALLY TO AFFECTED AREA(S) TWICE DAILY 100 g 2 023 Active cromolyn (Opticrom) 4 % ophthalmic solution Instill 1 to 2 drops to each eye 4 to 6 times a day as needed 10 mL 3 023 Active Pentips 32G X 4 MM misc USE FOUR TIMES DAILY TO INJECT LANTUS AND HUMALOG 200 each 11 Active Flovent HFA 220 MCG/ACT inhaler USE 1 PUFF TWICE DAILY. RINSE MOUTH AFTER USING. 12 g 023 Active Continuous Blood Gluc Silk Winding Machine Operator (FreeStyle Starla 2 [place]) device Use as directed 1 each 1 023 Active glucose 4 g chewable tablet Chew 4 tablets by mouth as needed for hypoglycemia. 40 tablet 5 023 Active cetirizine (ZyrTEC) 5 MG tabletIndicatio ns:Allergic rhinitis, unspecified seasonality, unspecified trigger TAKE 1 TABLET BY MOUTH ONCE DAILY NEEDED FOR ALLERGIES. 90 tablet 3 024 Active montelukast (Singulair) 10 MG tablet TAKE 1 TABLET BY MOUTH EVERY EVENING 90 tablet 3 024 Active metoprolol succinate XL (Toprol-XL) 200 MG 24 hr tablet Do not crush or chew.TAKE 1 TABLET BY MOUTH EVERY MORNING 30 tablet 11 Active cholecalciferol (Vitamin D-3) 25 MCG tablet TAKE 1 TABLET BY MOUTH EVERY MORNING 90 tablet 3 024 Active amLODIPine (Norvasc) 2.5 MG tablet TAKE 1 TABLET BY MOUTH EVERY MORNING 90 tablet 3 024 Active atorvastatin (Lipitor) 80 MG tablet TAKE 1 TABLET BY MOUTH AT BEDTIME 90 tablet 3 024 Active doxazosin (Cardura) 8 MG tablet TAKE 1 TABLET BY MOUTH AT BEDTIME 90 tablet 3 024 Active glucose blood (FreeStyle Precision Neno Test) test stripIndication s:Type 2 diabetes mellitus with stage 3b chronic kidney disease, with long-term current use of insulin ([facility]) USE TO TEST BLOOD SUGAR UP TO THREE TIMES DAILY NEEDED FOR LOW BLOOD SUGAR 100 strip 5 Active insulin glargine (Lantus SoloStar) 100 UNIT/ML penIndications: Type 2 diabetes mellitus with stage 3b chronic kidney disease, with long-term current use of insulin ([facility]) INJECT 33 UNITS SUBCUTANEOUSLY AT 8 IN THE EVENING. 30 mL 3 024 Active magnesium oxide (Mag-Ox) 400 MG tablet TAKE 1 TABLET BY MOUTH TWICE DAILY IN THE MORNING AND IN THE EVENING 180 tablet 3 Active Aspirin Low Dose 81 MG EC tablet TAKE 1 TABLET BY MOUTH EVERY EVENING 90 tablet 3 024 Active furosemide (Lasix) 20 MG tabletIndicatio ns:Essential hypertension TAKE 1/2 TABLET BY MOUTH EVERY MORNING 45 tablet 3 Active Continuous Glucose Sensor (FreeStyle Starla 2 Sensor) miscIndications :Type 2 diabetes mellitus with stage 3b chronic kidney disease, with long-term current use of insulin (CMS/HCC) Use as directed 2 each 11 Active empagliflozin (Jardiance) 10 MGIndications:T ype 2 diabetes mellitus with stage 3b chronic kidney disease, with long-term current use of insulin (CMS/HCC) Take 1 tablet (10 mg) by mouth in the morning. 30 tablet 5 Active Lancets (OneTouch Delica Plus [id number]) miscIndications :Type 2 diabetes mellitus with stage 3b chronic kidney disease, with long-term current use of insulin (CMS/HCC) Use three times daily as needed 100 each 11 Active semaglutide (Ozempic) 2 MG/1.5ML solution pen-injector Inject 0.5 mg under the skin 1 (one) time per week. 1 each 12 Active ezetimibe (Zetia) 10 MG tablet Take 1 tablet (10 mg) by mouth in the morning. 90 tablet 3 024 2024 Discontinued(S tere effects) semaglutide (Ozempic, 1 MG/DOSE,) 4 MG/3ML solution pen-injectorInd ications:Type 2 diabetes mellitus with stage 3b chronic kidney disease, with long-term current use of insulin (CMS/HCC) Inject 1 mg under the skin once weekly as directed 3 mL 5 024 2023 Discontinued(M ed list cleanup (will not trigger notification to Pharmacy)) Active Problems Problem Noted Date Diagnosed Date Fall 03/16/2024 Assessment & Plan (03/16/2024 2:40 PM EDT): - the patient has been experiencing dizziness, headache, and neck pain - an MRI for the brain and CT scan for the neck will be done - reviewed ER precaution Acute post-traumatic headache, not intractable 1 Assessment & Plan (06/25/2024 6:11 AM EST): - MRI head on 03/24/24: No acute intracranial abnormality. Cervical myelopathy and degenerative changes at C1-2 junction. - CT neck on 04/06/24: No acute fracture or subluxation. 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 Neck pain 03/16/2024 Dizziness 03/16/2024 Assessment & Plan (06/25/2024 6:26 AM EST): - multifactorial, yet poor nutritional status / inadequate nutrition seems to be a major contributing factor - patient would like to decrease the dose of Semaglutide. Agreed with the plan PAD (peripheral artery disease) 10/06/2023 Assessment & Plan (06/15/2024 12:13 PM EST): - following with [facility] - subclavian artery stenosis and carotid stenosis - last US in Jul 2023 - continue working on lifestyle modifications / risk factor management Assessment & Plan (10/06/2023 6:31 AM EDT): - following with [facility] - subclavian artery stenosis and carotid stenosis - last US in Jul 2023 - continue working on lifestyle modifications / risk factor management Subclavian artery stenosis 10/06/2023 Assessment & Plan (03/16/2024 2:20 PM EDT): - following with [facility] - last US Jul 2023 - right severe stenosis 50-99% - left moderate 20-49% - diligent risk factor management and follow up with [facility] provider Assessment & Plan (10/06/2023 6:33 AM EDT): - following with [facility] - last US Jul 2023 - right severe stenosis 50-99% - left moderate 20-49% - diligent risk factor management and follow up with [facility] provider History of stroke 06/17/2023 Assessment & Plan (06/22/2023 7:36 AM EST): - continue aspirin, statin, and BP management for secondary prevention - continue working on lifestyle modifications Osteopenia 06/16/2022 Assessment & Plan (06/25/2024 6:17 AM EST): - last DEXA in Jun 2022 The lowest T-score -1.9 - continue calcium supplementation - continue weight-bearing exercise - repeat DEXA in Jun 2024. - consider bisphophanate, but precaution with CKD Assessment & Plan (10/06/2023 6:24 AM EDT): - last DEXA in Jun 2022 The lowest T-score -1.9 - continue calcium supplementation - continue weight-bearing exercise - repeat DEXA in Jun 2024. - consider bisphophanate, but precaution with CKD Assessment & Plan (06/22/2023 7:33 AM EST): - last DEXA in Jun 2022 The lowest T-score -1.9 - continue calcium supplementation - continue weight-bearing exercise - repeat DEXA in Jun 2024. - consider bisphophanate Assessment & Plan (02/23/2023 11:54 AM EDT): - last DEXA in Jun 2022 The lowest T-score -1.9 - continue calcium supplementation - continue weight-bearing exercise - repeat DEXA in Jun 2024. - consider bisphophanate Assessment & Plan (12/31/2022 9:41 AM EDT): -DEXA scan on 11/06/18 The lowest T-score -1.5 in femoral neck -DEXA scan on 07/04/22 The lowest T-score -1.9 in femoral neck -Bisphosphonate is contraindicated due to her CKD - Continue weight bearing exercise - Consider referring to electrical engineering teacher for other alternatives Assessment & Plan (06/16/2022 6:36 PM EST): -Last DEXA scan on 11/06/18 The lowest T-score -1.5 in femoral neck -Repeat DEXA scan -Bisphosphonate is contraindicated due to her CKD Tricuspid valve regurgitation 06/13/2022 Overview (05/05/2023): Last Assessment & Plan: -Last echo on 01/29/22 LVEF 60-65%, [id number] tricuspid regurgitation, mild pulmonary hypertension Assessment & Plan (12/24/2022 3:17 PM EDT): -Last echo on 01/29/22 LVEF 60-65%, [id number] tricuspid regurgitation, mild pulmonary hypertension Assessment & Plan (06/13/2022 9:10 AM EST): -Last echo on 01/29/22 LVEF 60-65%, [id number] tricuspid regurgitation, mild pulmonary hypertension Hyperkalemia 10/17/2020 Assessment & Plan (12/24/2022 3:04 PM EDT): -Continue patiromer Assessment & Plan (06/16/2022 6:26 PM EST): -Continue patiromer Renal osteodystrophy 10/17/2020 Assessment & Plan (12/31/2022 9:39 AM EDT): - 07/04/22 DEXA the lowest T-score -1.9 - Continue weight-bearing exercise - Relative contraindication to bisphosphonate due to CKD Diabetic nephropathy [facility] with type 2 diabetes mellitus 10/10/2020 Hypercalcemia 10/10/2020 Assessment & Plan (06/25/2024 6:24 AM EST): - secondary hyperparathyroidism - normal vitamin D level in Apr 2024 - followed by manufacturing automation engineer - continue vitamin D Proteinuria 10/10/2020 Type 2 diabetes mellitus 06/13/2015 Assessment & Plan (06/25/2024 6:22 AM EST): Dx: 2002. - Complication: Microalbuminuria / CKD. [...] which was discontinued by pt (prescribed by manufacturing automation engineer); discontinued dulaglutide due to adverse reaction - Continue diligent SMBG, current medication, and lifestyle modifications. - Last eye exam: 04/21/23 - Last foot exam: Jun 2023, high risk due to PAD - Last microalbumin test: 04/20/24 UACR 78 (done at manufacturing automation engineer's office) - Last lipid profile: 07/28/23 - Last dental exam: Recommended to schedule Immunizations: up to date Assessment & Plan (03/16/2024 2:22 PM EDT): Dx: 2002. - Complication: Microalbuminuria / CKD. Associated medical conditions: HTN; dyslipidemia; CKD; anemia; - A1C 7.7% on 03/16/24 - Hgb A1C 7.8% on 09/25/23, slightly increased from 7.2% in Jun 2023. Likely due to lack of Semaglutide. - Continue bolus insulin Humalog 17 units in the morning, 12-14 units with lunch and 8-10 units with dinner - Continue basal insulin 30 units at bedtime (Lantus) - Continue empagliflozin 10 mg daily - Continue semaglutide 0.5 mg weekly - Treatment Hx: Invokana which was discontinued by pt (prescribed by manufacturing automation engineer); discontinued dulaglutide due to adverse reaction - Continue diligent SMBG, current medication, and lifestyle modifications. - Last eye exam: 04/21/23 - Last foot exam: Jun 2023, high risk due to PAD - Last microalbumin test: 10/15/22 UACR 378 - Last lipid profile: 07/28/23 - Last dental exam: Recommended to schedule Immunizations: up to date Assessment & Plan (10/06/2023 6:26 AM EDT): Dx: 2002. - Complication: Microalbuminuria / CKD. Associated medical conditions: HTN; dyslipidemia; CKD; anemia; - Hgb A1C 7.8% on 09/25/23, slightly increased from 7.2% in Jun 2023. Likely due to lack of Semaglutide. - Continue bolus insulin Humalog 17 units in the morning, 12-14 units with lunch and 8-10 units with dinner - Continue basal insulin 30 units at bedtime (Lantus) - Continue empagliflozin 10 mg daily - Continue semaglutide 0.5 mg weekly - Treatment Hx: Invokana which was discontinued by pt (prescribed by manufacturing automation engineer); discontinued dulaglutide due to adverse reaction - Continue diligent SMBG, current medication, and lifestyle modifications. - Last eye exam: 04/21/23 - Last foot exam: Jun 2023, high risk due to PAD - Last microalbumin test: 10/15/22 UACR 378 - Last lipid profile: reminded - Last dental exam: Recommended to schedule Immunizations: up to date Assessment & Plan (06/22/2023 7:34 AM EST): Dx: 2002. - Complication: Microalbuminuria / CKD. Associated medical conditions: HTN; dyslipidemia; CKD; anemia; - Hgb A1C 7.2%, greatly improved from 8.6% on 04/03/23, 8.5% on 12/24/22 - Continue bolus insulin Humalog 17 units in the morning, 12-14 units with lunch and 8-10 units with dinner - Continue basal insulin 30 units at bedtime (Lantus) - Continue empagliflozin 10 mg daily - Continue semaglutide 0.5 mg weekly - Treatment Hx: Invokana which was discontinued by pt (prescribed by manufacturing automation engineer); discontinued dulaglutide due to adverse reaction - Continue diligent SMBG, current medication, and lifestyle modifications. ?? - Last eye exam: 04/21/23 - Last foot exam: 03/11/22 - Last microalbumin test: 10/15/22 UACR 378 - Last lipid profile: reminded - Last dental exam: Recommended to schedule ?? Immunizations: up to date Assessment & Plan (2023 11:50 AM EDT): Dx: 2002. - Complication: Microalbuminuria / CKD. Associated medical conditions: HTN; dyslipidemia; CKD; anemia; - Hgb A1C 8.6% on 04/03/23, 8.5% on 12/24/22, not improving. The personal best 6.9% on 10/23/21. - Continue Novolog insulin to 16 units with breakfast, 14 units with lunch, and 10 units with dinner. - Increase Tresiba 35 units qhs - Continue Jardiance 10 mg daily - Pt is willing to try Ozempic. Will try - Treatment Hx: Invokana which was discontinued by pt (prescribed by manufacturing automation engineer); discontinued dulaglutide due to adverse reaction - Continue diligent SMBG, current medication, and lifestyle modifications. ?? - Last eye exam: > 1 year - Last foot exam: 03/11/22 - Last microalbumin test: 10/15/22 UACR 378 - Last lipid profile: 12/01/20 TC279; HDL 37; LDL 181; TG 361 - Last dental exam: Recommended to schedule ?? Immunizations: up to date Assessment & Plan (02/23/2023 11:58 AM EDT): Dx: 2002. - Complication: Microalbuminuria / CKD. Associated medical conditions: HTN; dyslipidemia; CKD; anemia; - Hgb A1C 8.5% on 12/24/22, not improving. The personal best 6.9% on 10/23/21. - Continue Novolog insulin to 16 units with breakfast, 14 units with lunch, and 10 units with dinner. - Increase Tresiba 34 units qhs - Continue Jardiance 10 mg daily - Treatment Hx: Invokana which was discontinued by pt (prescribed by manufacturing automation engineer); discontinued dulaglutide due to adverse reaction - Continue diligent SMBG, current medication, and lifestyle modifications. - Last eye exam: > 1 year - Last foot exam: 03/11/22 - Last microalbumin test: 10/15/22 UACR 378 - Last lipid profile: 12/01/20 TC279; HDL 37; LDL 181; TG 361 - Last dental exam: Recommended to schedule Immunizations: up to date Assessment & Plan (12/31/2022 9:44 AM EDT): Dx: 2002. - Complication: Microalbuminuria / CKD. Associated medical conditions: HTN; dyslipidemia; CKD; anemia; - Hgb A1C 8.5% on 12/24/22, not improving. The personal best 6.9% on 10/23/21. - Continue Novolog insulin to 18 units with breakfast, 16 units with lunch, and 10 units with dinner. - Continue Tresiba 32 - 34 units qhs - Discontinue dulaglutide 0.75 mg weekly - Add Farxiga or Jardiacne - Treatment Hx: Invokana which was discontinued by pt (prescribed by manufacturing automation engineer); discontinued dulaglutide due to adverse reaction - Continue diligent SMBG, current medication, and lifestyle modifications. - Last eye exam: > 1 year - Last foot exam: 03/11/22 - Last microalbumin test: 10/15/22 UACR 378 - Last lipid profile: 12/01/20 TC279; HDL 37; LDL 181; TG 361 - Last dental exam: Recommended to schedule Immunizations: up to date Assessment & Plan (06/16/2022 6:25 PM EST): Dx: 2002. - Complication: Microalbuminuria / CKD. Associated medical conditions: HTN; dyslipidemia; CKD; anemia; - Hgb A1C 8.5% today, trending up, 8.0% in 03/11/22 and 6.9% on 10/23/21. - Continue Novolog insulin to 18 units with breakfast, 16 units with lunch, and 10 units with dinner. - Continue Tresiba 32 - 34 units qhs - Start dulaglutide 0.75 mg weekly - Treatment Hx: Invokana which was discontinued by pt (prescribed by manufacturing automation engineer) - Continue diligent SMBG, current medication, and lifestyle modifications. - Last eye exam: > 1 year - Last foot exam: 03/11/22 - Last microalbumin test: 11/30/21 UACR 811 - Last lipid profile: 12/01/20 TC279; HDL 37; LDL 181; TG 361 - Last dental exam: Recommended to schedule Immunizations: up to date Chronic anemia 04/12/2015 Assessment & Plan (06/25/2024 6:23 AM EST): -baseline hematocrit 34-35 -anemia of chronic disease Assessment & Plan (12/24/2022 2:57 PM EDT): -baseline hematocrit 34-35 -anemia of chronic disease Assessment & Plan (06/16/2022 6:31 PM EST): -baseline hematocrit 34-35 -anemia of chronic disease Chronic kidney disease, stage III (moderate) Assessment & Plan (06/25/2024 6:19 AM EST): -followed by manufacturing automation engineerDr. Sagastume -on sodium bicarbonate for metabolic acidosis and patiromer for hyperkalemia -Avoid nephrotoxic drugs -Renal dose meds -Continue SGLT2i Assessment & Plan (03/16/2024 2:20 PM EDT): -followed by manufacturing automation engineerDr. Sagastume -on sodium bicarbonate for metabolic acidosis and patiromer for hyperkalemia -most recent lab : 10/15/22 Sodium 133 ; BUN 41 ; WBC 7.3 ; Hemoglobin 11.1 ; Hct 33.7 ; Carbon Dioxide 22 ; Creatinine 1.51 -Avoid nephrotoxic drugs -Renal dose meds Assessment & Plan (10/06/2023 6:24 AM EDT): -followed by manufacturing automation engineerDr. Miteshon sodium bicarbonate for metabolic acidosis and patiromer for hyperkalemia -most recent lab : 10/15/22 Sodium 133 ; BUN 41 ; WBC 7.3 ; Hemoglobin 11.1 ; Hct 33.7 ; Carbon Dioxide 22 ; Creatinine 1.51 -Avoid nephrotoxic drugs -Renal dose meds Assessment & Plan (06/22/2023 7:31 AM EST): -followed by manufacturing automation engineerDr. Sagastume -on sodium bicarbonate for metabolic acidosis and patiromer for hyperkalemia -most recent lab : 10/15/22 Sodium 133 ; BUN 41 ; WBC 7.3 ; Hemoglobin 11.1 ; Hct 33.7 ; Carbon Dioxide 22 ; Creatinine 1.51 -Avoid nephrotoxic drugs -Renal dose meds Assessment & Plan (04/01/2023 5:43 AM EDT): -followed by manufacturing automation engineer, Dr. Sagastume -on sodium bicarbonate for metabolic acidosis and patiromer for hyperkalemia -most recent lab : 10/15/22 Sodium 133 ; BUN 41 ; WBC 7.3 ; Hemoglobin 11.1 ; Hct 33.7 ; Carbon Dioxide 22 ; Creatinine 1.51 -Avoid nephrotoxic drugs -Renal dose meds Assessment & Plan (02/23/2023 11:52 AM EDT): -followed by manufacturing automation engineerDr. Sagastume -on sodium bicarbonate for metabolic acidosis and patiromer for hyperkalemia -most recent lab : 10/15/22 Sodium 133 ; BUN 41 ; WBC 7.3 ; Hemoglobin 11.1 ; Hct 33.7 ; Carbon Dioxide 22 ; Creatinine 1.51 -Avoid nephrotoxic drugs -Renal dose meds Assessment & Plan (12/31/2022 9:40 AM EDT): -followed by manufacturing automation engineerDr. Sagastume -on sodium bicarbonate for metabolic acidosis and patiromer for hyperkalemia -most recent lab : 10/15/22 Sodium 133 ; BUN 41 ; WBC 7.3 ; Hemoglobin 11.1 ; Hct 33.7 ; Carbon Dioxide 22 ; Creatinine 1.51 -Avoid nephrotoxic drugs -Renal dose meds Assessment & Plan (06/16/2022 6:31 PM EST): -followed by manufacturing automation engineerDr. Sagastume -on sodium bicarbonate for metabolic acidosis and patiromer for hyperkalemia -most recent lab in November 2021 showed stable renal fxn, BUN 40; SCr 1.49; eGFR 35 -Avoid nephrotoxic drugs -Renal dose meds Essential hypertension 04/12/2015 Assessment & Plan (06/15/2024 12:13 PM EST): -Goal BP < 140/90 per JNC-8, <130/80 per ACC/AHA guideline (Tx threshold > 130/80) -BP elevated today -Hx of refractory hypertension -Comanaged with manufacturing automation engineer, deck engine operator, and pharmacist -Continue lisinopril 40 mg daily [...] tolerating amlodipine. Will monitor her intolerance closely. Ip Litigation Associate: ELLA, last seen in Jul 2023 Hydrometeorologist: Dr. Sagastume, last seen in October 2022 Echocardiogram: TTE 01/29/22 EF 60%. Mild to moderate tricuspid regurgitation. Mild pulm HYPERTENSION Consider evaluating for primary aldosteronism (K is normal-high, so unlikely). Consider decreasing pill-burden. Follow-up in 3 mo or sooner prn Assessment & Plan (03/16/2024 2:19 PM EDT): -Goal BP < 140/90 per JNC-8, <130/80 per ACC/AHA guideline (Tx threshold > 130/80) -BP elevated today -Hx of refractory hypertension -Comanaged with manufacturing automation engineer, deck engine operator, and pharmacist -Continue lisinopril 40 mg daily [...] tolerating amlodipine. Will monitor her intolerance closely. Ip Litigation Associate: ELLA, last seen in Jul 2023 Hydrometeorologist: Dr. Sagastume, last seen in October 2022 Echocardiogram: TTE 01/29/22 EF 60%. Mild to moderate tricuspid regurgitation. Mild pulm HYPERTENSION Consider evaluating for primary aldosteronism (K is normal-high, so unlikely). Consider decreasing pill-burden. Follow-up in 3 mo or sooner prn Assessment & Plan (10/06/2023 6:23 AM EDT): -Goal BP < 140/90 per JNC-8, <130/80 per ACC/AHA guideline (Tx threshold > 130/80) -Hx of refractory hypertension -Comanaged with manufacturing automation engineer, deck engine operator, and pharmacist -Continue lisinopril 40 mg daily [...] tolerating amlodipine. Will monitor her intolerance closely. Ip Litigation Associate: ELLA, last seen in Jul 2023 [address]rometeorologist: Dr. Sagastume, last seen in October 2022 Echocardiogram: TTE 01/29/22 EF 60%. Mild to moderate tricuspid regurgitation. Mild pulm HYPERTENSION Consider evaluating for primary aldosteronism (K is normal-high, so unlikely). Consider decreasing pill-burden. Follow-up in 3 mo or sooner prn Assessment & Plan (06/22/2023 7:30 AM EST): -Goal BP < 140/90 per JNC-8, <130/80 per ACC/AHA guideline (Tx threshold > 130/80) -Hx of refractory HTN -Continue lisinopril 40 mg daily -Continue amlodipine to 2.5 mg daily -Continue doxazosin to 8 mg daily -Continue furosemide 10 mg daily, plan to discontinue depending on her lab. -Continue metoprolol succinate 200 mg daily ?? Previously self-discontinued many antihypertensives due to intolerance. She had intolerance to amlodipine, nifedipine, hydralazine, clonidine, diltiazem, losartan and HCTZ. Now appears to be tolerating amlodipine. Will monitor her intolerance closely. ?? Ip Litigation Associate: ELLA, last seen in Jan 2023 Hydrometeorologist: Dr. Sagastume, last seen in October 2022 Echocardiogram: TTE 01/29/22 EF 60%. Mild to moderate tricuspid regurgitation. Mild pulm HYPERTENSION Consider evaluating for primary aldosteronism (K is normal-high, so unlikely). Consider decreasing pill-burden. Follow-up in 3 mo or sooner prn Assessment & Plan (04/01/2023 5:43 AM EDT): -Goal BP < 140/90 per JNC-8, <130/80 per ACC/AHA guideline (Tx threshold > 130/80) -Hx of refractory HTN -Continue lisinopril 40 mg daily -Decrease amlodipine to 2.5 mg daily -Increase doxazosin to 8 mg daily -Continue furosemide 10 mg daily, plan to discontinue depending on her lab. -Continue metoprolol succinate 200 mg daily ?? Previously self-discontinued many antihypertensives due to intolerance. She had intolerance to amlodipine, nifedipine, hydralazine, clonidine, diltiazem, losartan and HCTZ. Now appears to be tolerating amlodipine. Will monitor her intolerance closely. ?? Ip Litigation Associate: ELLA, last seen on 02/21/22 Hydrometeorologist: Dr. Sagastume, last seen in 01/08/22 Echocardiogram: 06/14/14 LVEF 60-65%; aortic calcification, mild mitral regurgitation ?? Follow-up in 3 mo or sooner prn Assessment & Plan (02/23/2023 12:01 PM EDT): -Goal BP < 140/90 per JNC-8, <130/80 per ACC/AHA guideline (Tx threshold > 130/80) -Hx of refractory HTN -Continue lisinopril 40 mg daily -Decrease amlodipine to 2.5 mg daily -Increase doxazosin to 8 mg daily -Continue furosemide 10 mg daily, plan to discontinue depending on her lab. -Continue metoprolol succinate 200 mg daily Previously self-discontinued many antihypertensives due to intolerance. She had intolerance to amlodipine, nifedipine, hydralazine, clonidine, diltiazem, losartan and HCTZ. Now appears to be tolerating amlodipine. Will monitor her intolerance closely. Ip Litigation Associate: ELLA, last seen on 02/21/22 Hydrometeorologist: Dr. Sagastume, last seen in 01/08/22 Echocardiogram: 06/14/14 LVEF 60-65%; aortic calcification, mild mitral regurgitation Follow-up in 3 mo or sooner prn Assessment & Plan (12/24/2022 3:02 PM EDT): -Goal BP < 140/90 per JNC-8, <130/80 per ACC/AHA guideline (Tx threshold > 130/80) -Hx of refractory HTN -Continue lisinopril 40 mg daily -Continue amlodipine 5 mg daily -Continue doxazosin 4 mg qAM and 6 mg qPM -Continue furosemide 10 mg daily, plan to discontinue depending on her lab. -Continue metoprolol succinate 200 mg daily Previously self-discontinued many antihypertensives due to intolerance. She had intolerance to amlodipine, nifedipine, hydralazine, clonidine, diltiazem, losartan and HCTZ. Now appears to be tolerating amlodipine. Will monitor her intolerance closely. Ip Litigation Associate: ELLA, last seen on 02/21/22 Hydrometeorologist: Dr. Sagastume, last seen in 01/08/22 Echocardiogram: 06/14/14 LVEF 60-65%; aortic calcification, mild mitral regurgitation Assessment & Plan (06/16/2022 6:14 PM EST): -Goal BP < 140/90 per JNC-8, <130/80 per ACC/AHA guideline (Tx threshold > 130/80) -Hx of refractory HTN -Continue lisinopril 40 mg daily -Continue amlodipine 5 mg daily -Continue doxazosin 4 mg qAM and 6 mg qPM -Continue furosemide 10 mg daily, plan to discontinue depending on her lab. -Continue metoprolol succinate 200 mg daily Previously self-discontinued many antihypertensives due to intolerance. She had intolerance to amlodipine, nifedipine, hydralazine, clonidine, diltiazem, losartan and HCTZ. Now appears to be tolerating amlodipine. Will monitor her intolerance closely. Ip Litigation Associate: ELLA, last seen on 02/21/22 Hydrometeorologist: Dr. Sagastume, last seen in 01/08/22 Echocardiogram: 06/14/14 LVEF 60-65%; aortic calcification, mild mitral regurgitation Asthma 04/12/2015 Assessment & Plan (06/25/2024 6:12 AM EST): - Most recent exacerbation: 10/2022, Tx with azithromycin and prednisone -last CXR on 11/2022 was normal - continue fluticasone (Flovent) (although patient does not seem to be using it daily) - continue albuterol inhaler + nebulizer as needed Assessment & Plan (12/24/2022 4:31 PM EDT): Most recent exacerbation: 10/2022, Tx with azithromycin and prednisone -last CXR on 11/2022 was normal - continue Flovent - continue albuterol inhaler + nebulizer as needed Carotid artery stenosis 09/20/2014 Assessment & Plan (06/15/2024 12:13 PM EST): -Last carotid US on 07/22/23 right ICA 16-49% stenosis; left ICA 16-49% stenosis -continue working on risk factor management Assessment & Plan (03/16/2024 2:19 PM EDT): -Last carotid US on 07/22/23 right ICA 16-49% stenosis; left ICA 16-49% stenosis -continue working on risk factor management Assessment & Plan (10/06/2023 6:32 AM EDT): -Last carotid US on 07/22/23 right ICA 16-49% stenosis; left ICA 16-49% stenosis -continue working on risk factor management Assessment & Plan (06/22/2023 7:30 AM EST): -Last carotid US on 06/30/14 b/l 16-49% stenosis. -check with deck engine operator for more recent US reprot -upcoming appt with deck engine operator on 02/11/23, carotid US in Jun 2023. -continue working on risk factor management Assessment & Plan (02/23/2023 11:50 AM EDT): -Last carotid US on 06/30/14 b/l 16-49% stenosis. -check with deck engine operator for more recent US reprot -upcoming appt with deck engine operator on 02/11/23, carotid US in Jun 2023. -continue working on risk factor management Assessment & Plan (12/31/2022 9:37 AM EDT): -Last carotid US on 06/30/14 b/l 16-49% stenosis. -check with deck engine operator for more recent US reprot Assessment & Plan (06/13/2022 9:11 AM EST): -Last carotid US on 06/30/14 b/l 16-49% stenosis. Allergic rhinitis 02/04/2012 Assessment & Plan (12/24/2022 2:56 PM EDT): continue Singulair, Cetrizine, and ipratropium nasal spray, Pt requested Saline Nasal [place], will prescribe Treatment Hx; Flonase is ineffective Bilateral cataracts 02/04/2012 Dyslipidemia 02/04/2012 Assessment & Plan (06/25/2024 6:24 AM EST): -Last lipid profile 07/28/23 -Current mediation: Atorvastin 80 mg at bedtime; ezetimbe 10 mg at bedtime -She is on high-intensity statin therapy - Continue lifestyle modifiations Assessment & Plan (03/16/2024 2:23 PM EDT): -Last lipid profile 07/28/23 -Current mediation: Atorvastin 80 mg at bedtime -She is on high-intensity statin therapy -Add ezetimbe since her HDL is low - Continue lifestyle modifiations Assessment & Plan (10/06/2023 6:28 AM EDT): -Last lipid profile 07/28/23 -Current mediation: Atorvastin 80 mg at bedtime -She is on high-intensity statin therapy -Add ezetimbe since her HDL is low - Continue lifestyle modifiations Assessment & Plan (06/22/2023 7:36 AM EST): -Last lipid profile 12/01/20; TC 279; TG 361; HDL 37; LDL 181 -Current mediation: Atorvastin 80 mg at bedtime -She is on high-intensity statin therapy -Reminded about lab order Assessment & Plan (04/01/2023 5:44 AM EDT): -Last lipid profile 12/01/20; TC 279; TG 361; HDL 37; LDL 181 -Current mediation: Atorvastin 80 mg at bedtime -She is on high-intensity statin therapy Assessment & Plan (12/24/2022 3:00 PM EDT): -Last lipid profile 12/01/20; TC 279; TG 361; HDL 37; LDL 181 -Current mediation: Atorvastin 80 mg at bedtime -She is on high-intensity statin therapy Assessment & Plan (06/16/2022 6:34 PM EST): -Last lipid profile 12/01/20; TC 279; TG 361; HDL 37; LDL 181 -Current mediation: Atorvastin 80 mg at bedtime -She is on high-intensity statin therapy Gastroesophageal reflux disease 02/04/2012 Spinal stenosis of lumbar region 02/04/2012 Resolved Problems Problem Noted Date Diagnosed Date Resolved Date Obesity 03/26/2012 06/25/2024 Encounters Date Type Department Care Team Description 07/01/2024 Travel 06/15/2024 11:15 AM EST Office Visit [facility] [address] [place] [phone] Amy Gilman MD Essential hypertension (Primary Dx); Stage 3b chronic kidney disease (CMS/HCC); Type 2 diabetes mellitus with stage 3b chronic kidney disease, with long-term current use of insulin ([facility]/HCC); Bilateral carotid artery stenosis; PAD (peripheral artery disease) (CMS/HCC); Dyslipidemia; Acute post-traumatic headache, not intractable; Dizziness; Moderate persistent asthma without complication; Osteopenia of neck of femur, unspecified laterality; Dietary counseling; Exercise counseling; Overweight; Chronic anemia; Hypercalcemia 06/11/2024 Telephone [facility] [address] [place], [place] [phone] Jaylin Schuster MA chart prep 04/27/2024 Orders Only [address] [address] Amy Gilman MD Type 2 diabetes mellitus with stage 3b chronic kidney disease, with long-term current use of insulin ([facility]/HCC) (Primary Dx); Essential hypertension; Moderate persistent asthma without complication 04/23/[address] [facility] [address] [place] [phone] Amy Gilman MD Call Back Request from Last 3 Months Immunizations Name Administration Dates Next Due Hep B, adult 09/20/2014,10/26/2013,06/30/2013 Influenza High-dose Quadriva lent Preservative Free 04/09/2021 Influenza injectable quadriv alent IIV4 with preservative 06/13/2022,05/14/2017,04/10/2016,04/12 Influenza injectable quadriv alent preservative free 06/17/2023 Influenza, High Dose Seasona l, Preservative Free 02/25/2024,05/03/2019,04/28/2018 Influenza, IIV3, injectable 07/11/2014,0 03/15/2011,02/06/2010,02/27,04/12/2008,03/11/2007,04/18/2006 ,05/08/2005,06/18/2002 Influenza, Split (incl. michelle fied surface antigen) 04/02/2013,03/26/2012 Influenza, Unspecified 07/11/2014,2010,02/06/2010,02/27,04/12/2008,03/11/2007,04/18/2006 ,05/08/2005,06/18/2002 Moderna Covid-19 Vaccine 12+ 10/23/2021, 06/06/2021,09/29/2020,09/01 Moderna Covid-19 Vaccine 6+ Bivalent 06/13/2022 Pfizer Covid-19 Vaccine 12+ 06/17/2023 Pneumococcal Conjugate PCV 13 05/14/2017 Pneumococcal Polysaccharide PPSV23 05/03/2019,,03/14/2003 TD (adult), 2 Lf tetanus tox oid, preservative free, adsorbed 05/17/2010,04/01/2000 Tdap 06/17/2023,03/26/2012 Zoster, Recombinant 12/25/2021,10/23/2021 Zoster, live 12/25/2021,10/23/2021,08/16/2014 Social History Tobacco Use Types Packs/Day Years Used Date Smoking Tobacco: Never Passive Smoke Exposure: Never Smokeless Tobacco: Never Tobacco Cessation:Counseling Given: Not Answered Alcohol Use Standard Drinks/Week Comments Never 0 [...] Orientation Straight 04/15/2022 10 :15 AM EDT Last Filed Vital Signs Vital Sign Reading Time Taken Comments Blood Pressure 146/88 07/01/2024 10:05 AM EST Pulse 76 07/01/2024 10:05 AM EST Temperature 36.2 ??C (97.2 ??F) 06/15/2024 11:[address] Respiratory Rate 20 06/15/2024 11:26 AM EST Oxygen Saturation 98% 06/15/2024 11:26 AM EST Inhaled Oxygen Concentration - - Weight 68.8 kg (151 lb 9.6 oz) 06/15/2024 11:26 AM EST Height 157.5 cm (5' 2 ) 06/15/2024 11:26 AM EST Body Mass Index 27.73 06/15/2024 11:26 AM EST Plan of Treatment Upcoming Encounters Date Type Department Care Team (Late st Contact Info) Description 07/16/2024 9:30 AM EST Telemedicine [facility] [address] [place] [phone] Joshua Mims, PharmD [address] [place] [address] 10/21/2024 3:00 PM EDT Office Visit [facility] [address] [place], [place] [phone] Kaia Mann, OD [address] [place] [address] Health Maintenance Due Date Last Done Comments CT Colonography 1950 Colonoscopy 1950 FIT 1950 FOBT 1950 Sigmoidoscopy 1950 Alcohol/Substance Use Screening 1964 Hepatitis C Screening 1970 RSV Patients and Patients Aged 60 years or older (1 - Risk 60-74 years 1-dose series) 2012 COVID-19 Vaccine ( season) 2024 06/17/2023, 06/13/2022, 10/23/2021, Additional history exists Diabetes: Foot Exam 06/17/2024 06/17/2023, 06/17/2023, 06/17/2023, Additional history exists Lipid Panel 07/28/2024 07/28/2023, 06/16, 12/01/2020 Diabetes: Hemoglobin A1C 12/13/202406/15/ 024, 03/16/2024, 12/24/2023, Additional history exists Depression Screening 03/16/2025 03/16/2024, 12/25/19 23 SDOH Screening 03/16/2025 03/16/2024 Tobacco Screening 03/16/2025 03/16/2024 Eye Exam 04/21/2025 04/21/2023, 1111/2022, 04/21/2023, Additional history exists Mammogram 07/09/2025 07/09/2023, 06/17, 07/03/2022, Additional history exists Colorectal Cancer Screening 10/12/2026 FIT DNA/Cologuard 10/12/2026 10/13/2023 DTaP/Tdap/Td Vaccines (3 - Td or Tdap) 06/17/2033 06/17/2023, 03/26/2012, 05/17/2010, Additional history exists Hepatitis B Vaccines Completed 09/20/2014, 10/26/2013, 06/30/2013 Pneumococcal Vaccine: 50+ Years Completed 05/03/2019, 05/14/2017, 08/10/2008, Additional history exists Zoster Vaccines Completed 12/25/2021, 12/14, 10/23/2021, Additional history exists Influenza Vaccine Completed 02/25/2024, , 06/13/2022, Additional history exists HIB Vaccines Aged Out No longer eligi ble based on patient's age to complete this topic HPV Vaccines Aged Out No longer eligi ble based on patient's age to complete this topic Hepatitis A Vaccines Aged Out No long er eligible based on patient's age to complete this topic IPV Vaccines Aged Out No longer eligi ble based on patient's age to complete this topic Meningococcal Vaccine Aged Out No charlene miguelina eligible based on patient's age to complete this topic RSV under 20 months Aged Out No longe r eligible based on patient's age to complete this topic Rotavirus Vaccines Aged Out No longer eligible based on patient's age to complete this topic Goals Goal Patient Goal Type Associated Problems Recent Progress Patient-Stated? Author Blood Pressure < 140/90 Blood Pressure 146/88(2024 10:05 AM EST) No Joshua Mims, PharmSowmya Hemoglobin A1c < 7 Result Component 6.5( 11:27 AM EST) No Joshua Mims, PharmD Note: Age + HTN, CKD, Hx Stroke make more relaxed goal (8%) reasonable Procedures Procedure Name Priority Date/Time Associated Diagnosis Comments POCT GLYCATED HEMOGLOBIN, TOTAL Routine 06/15/2024 11:27 AM EST Type 2 diabetes mellitus with stage 3b chronic kidney disease, with long-term current use of insulin (CMS/HCC) POCT GLUCOSE Routine 06/15/2024 11:27 AM EST Type 2 diabetes mellitus with stage 3b chronic kidney disease, with long-term current use of insulin (CMS/HCC) LAB COLOGUARD?? COLON CANCER SCREEN Routine 10/13/2023 6:30 AM EDT Colon cancer screening LIPID PANEL, STANDARD Routine 07/28/2023 9:03 AM EST BI MAMMOGRAM SCREENING TOMOSYNTHESIS BILATERAL Routine 07/09/2023 1:44 PM EST from Last 3 Months or Most Recently Relevant to Health Maintenance Results * (ABNORMAL) POCT HGB A1C (06/15/2024 11:27 AM EST) Pathologist [facility] [place] Hemoglobin A1C 6.5(A) 4.0 - 6.0 % QC Media Lot # [id number] Lot# Expiration Date Blood 06/15/2024 11:2 7 AM EST us Amy Gilman MD POINT OF CARE TEST ENTER/EDIT OR DERABLES Final Result * POCT Glucose (06/15/2024 11:27 AM EST) Pathologist [facility] [place] Glucose Blood, POC 183 60 - 200 mg/dL QC Media Lot # [id number] Lot# Expiration Date Blood Capillary blood specimen / Unknown 06/15/2024 11:27 AM EST us Amy Gilman MD POINT OF CARE TEST ENTER/EDIT OR DERABLES Final Result * Cologuard?? colon cancer screening (10/13/2023 6:30 AM EDT) Cologuard Result Negative Negative 10/21/19 6:12 PM EDT appsplit (CLIA #:[id number]) Comment: NEGATIVE TEST RESULT. A negative Cologuard result indicates a low likelihood that a colorectal cancer (CRC) or advanced adenoma (adenomatous polyps with more advanced pre-malignant features) ??is present. The chance that a person with a negative Cologuard test has a colorectal cancer is less than 1 in 1500 (negative predictive value >99.9%) or has an ??advanced adenoma is less than ??5.3% (negative predictive value 94.7%). These data are based on a prospective cross-sectional study of 10,000 individuals at average risk for colorectal cancer who were screened with both Cologuard and colonoscopy. (Mayito Holland. et al, N Engl J Med 2014;370(14):1286- 1297) The normal value (reference range) for this assay is negative. COLOGUARD RE-SCREENING RECOMMENDATION: Periodic colorectal cancer screening is an important part of preventive healthcare for asymptomatic individuals at average risk for colorectal cancer. ??Following a negative Cologuard result, the [place] [employer] and U.S. Multi-Society Task Force screening guidelines recommend a Cologuard re-screening interval of 3 years. References: [place] [employer] Guideline for Colorectal Cancer Screening: https://www.cancer.org/cancer/efrhm-meabrw-bnoyxj/tdqvoqecq-wqqnelbrz-njpywde/ac s-rec ommendations.html.; Darryn MICHELE, Flaquito SMART, Shaneka WatsonK, Colorectal Cancer Screening: Recommendations for Physicians and Patients from the U.S. Multi-Society Task Force on Colorectal Cancer Screening , Am J Gastroenterology 2017; 112:3728-9624. TEST DESCRIPTION: Composite algorithmic analysis of stool DNA-biomarkers with hemoglobin immunoassay. ?? Quantitative values of individual biomarkers are not reportable and are not associated with individual biomarker result reference ranges. Cologuard is intended for colorectal cancer screening of adults of either sex, 45 years or older, who are at average-risk for colorectal cancer (CRC). Cologuard has been approved for use by the U.S. FDA. The performance of Cologuard was established in a cross sectional study of average-risk adults aged 50-84. Cologuard performance in patients ages 45 to 49 years was estimated by sub-group analysis of near-age groups. Colonoscopies performed for a positive result may find as the most clinically significant lesion: colorectal cancer [4.0%], advanced adenoma (including sessile serrated polyps greater than or equal to 1cm diameter) [20%] or non- advanced adenoma [31%]; or no colorectal neoplasia [45%]. These estimates are derived from a prospective cross-sectional screening study of 10,000 individuals at average risk for colorectal cancer who were screened with both Cologuard and colonoscopy. (Mayito Curry al, N Engl J Med 2014;370(14):3554-9583.) Cologuard may produce a false negative or false positive result (no colorectal cancer or precancerous polyp present at colonoscopy follow up). A negative Cologuard test result does not guarantee the absence of CRC or advanced adenoma (pre-cancer). The current Cologuard screening interval is every 3 years. ([place] [employer] and U.S. Multi-Society Task Force). Cologuard performance data in a 10,000 patient pivotal study using colonoscopy as the reference method can be accessed at the following location: www.Clipik/results. Additional description of the Cologuard test process, warnings and precautions can be found at www.[employer].com. Stool specimen (specimen) 10/13/2023 6:30 AM EDT 10/14/2023 10:49 AM EDT Amy Gilman MD LAB MOLECULAR DIAGNOSTICS ORDERA BLES Final Result appsplit (CLIA #:[id number]) [place] [address], * (ABNORMAL) Lipid Panel, Standard (07/28/2023 9:03 AM EST) Triglycerides 270(H) <150 mg/dL [facility] Comment:Desirable Triglyceri de: less than 150 mg/dLBorderline High Triglyceride 150-199 mg/dLHigh Triglyceride: 200-499 mg/dLVery High Triglyceride: greater than or equal to 5OO mg/dL Cholesterol 173 <200 mg/dL [facility] Comment:Desirable Cholestero l: less than 200 mg/dLBorderline High Cholesterol: 200-239 mg/dLHigh Cholesterol: greater than 239 mg/dL LDL Cholesterol Calculated 89 <100 mg/dL [facility] Comment:Desirable LDL: less than 100 mg/dLNear Optimal/Above Optimal LDL: 110- 129 mg/dLBorderline High LDL: 130-159 mg/dLHigh LDL: 160-189 mg/dLVery High LDL: greater than or equal to 190 mg/dL HDL Cholesterol 30(L) >40 mg/dL [facility] Comment:Desirable HDL: great er than 40 mg/dL Note: This HDL assay may give artificially low results in patients with liver disease. 07/28/2023 9:03 AM EST 07/28/2023 11:34 AM EST us Amy Gilman MD LAB BLOOD ORDERABLES Final Resul t Performing Organization Address City/State/[facility] Co de Phone Number [facility] [address] [place] [address] [phone] * BI Mammogram Screening Tomosynthesis Bilateral (07/09/2023 1:44 PM EST) Anatomical Region Laterality Modality Breast Bilateral Mammography 07/09/2023 1:44 PM EST Narrative 07/21/2023 3:13 PM EST ? [facility] [place] ? [address] ?[place] [address] ? Mammography Report ? Signed ? Patient: Mason,Loraine ?MR#: [id number] ? : 1950 ?Acct:[id number] ? Age/Sex: 73 / F ?ADM Date: /24/24 ? Loc: HO.MAMMO ? Attending Dr: Amy Gilman MD ? Ordering Physician: Amy Gilman MD ?Results: 2Benign F ?? indings ? Date of Service: 07/09/23 ?Follow Up: 1 Year From Orig ?? inal Mammogram ? Procedure(s): MM tomosynthesis screening BI ?? Accession Number(s): [id number] ? cc: Amy Gilman MD ? EXAMINATION: ?? MM SCREENING DIGITAL BREAST TOMOSYNTHESIS, BILATERAL ? CLINICAL INFORMATION: ? Screening. Asymptomatic. ? COMPARISON: ?? Mammography: This study is compared with prior exams dating back to ?? 2019. ? TECHNIQUE: ?? Digital breast tomosynthesis is performed in both the craniocaudal and ?? mediolateral oblique views along with computer-aided detection (CAD). ?? Synthesized 2D images are generated from the tomosynthesis. ? FINDINGS: ?? There are scattered areas of fibroglandular density (ACR BI-RADS breast ?? composition Category b). ? There are no significant masses, abnormal calcifications, or other ?? abnormalities. ?? There are numerous, unchanged, benign calcifications in each breast. ? MM/MM tomosynthesis screening BI ?? IMPRESSION: ?? No mammographic evidence of malignancy. ? ASSESSMENT: ? BI-RADS BI-RADS 2 - Benign Findings ? RECOMMENDATION: ?? Routine annual mammography screening. ? 1 year F/U ? This examination should not preclude the clinical evaluation of a ?? suspicious palpable abnormality. ? This patient's information was entered into a reminder system with a ?? target due date for their next mammogram. ? Dictated By: ?Antonette Bowens MD ? Signed By: ?<Electronically signed by Antonette Bowens MD in OV> ? 07/21/231508 ? DD/ 1344 ? TD/TT: ? Nurse Practitioner Adult: ? Procedure Note Donotuseinterpreter, Image - 07/21/2023 [place] [facility] [address] [place] [address] Mammography Report Signed Patient: Loraine CuevasMR#: [id number] : 2Acct:[id number] Age/Sex: 73 / FADM Date: 07/09/23 Loc: HO.MAMMO Attending Dr: Amy Gilman MD Ordering Physician: Amy Gilman MDResults: 2Benign F indings Date of Service: 07/09/23Follow Up: 1 Year From Orig inal Mammogram Procedure(s): MM tomosynthesis screening BI Accession Number(s): [id number] cc: Amy Gilman MD EXAMINATION: MM SCREENING DIGITAL BREAST TOMOSYNTHESIS, BILATERAL CLINICAL INFORMATION: Screening. Asymptomatic. COMPARISON: Mammography: This study is compared with prior exams dating back to 2019. TECHNIQUE: Digital breast tomosynthesis is performed in both the craniocaudal and mediolateral oblique views along with computer-aided detection (CAD). Synthesized 2D images are generated from the tomosynthesis. FINDINGS: There are scattered areas of fibroglandular density (ACR BI-RADS breast composition Category b). There are no significant masses, abnormal calcifications, or other abnormalities. There are numerous, unchanged, benign calcifications in each breast. MM/MM tomosynthesis screening BI IMPRESSION: No mammographic evidence of malignancy. ASSESSMENT: BI-RADS BI-RADS 2 - Benign Findings RECOMMENDATION: Routine annual mammography screening. 1 year F/U This examination should not preclude the clinical evaluation of a suspicious palpable abnormality. This patient's information was entered into a reminder system with a target due date for their next mammogram. Dictated By: Antonette Bowens MD Signed By: <Electronically signed by Antonette Bowens MD in OV> 07/21/23 1509 DD/ 1344 TD/TT: Nurse Practitioner Adult: Amy Gilman MD IMG BI PROCEDURES Final Result from Last 3 Months or Most Recently Relevant to Health Maintenance Insurance [facility] Care Teams Manager Equipment Relationship Specialty Start Date End Date Amy Gilman MD [address] [place] [address] PCP - General Family Medicine 06/16/18 Joshua Mims, PharmD [address] [place] [address] Pharmacist Internal Medicine 05/05/23
--- OUTSIDE RECORDS SUMMARY | 2024-07-14 14:43 | XMS_ITS | Clinical Summary ---
Author Organization [facility] Address [address] [place] [address] [place] [address] Phone Care Team Providers Care Blasting Clay Miner Name Role Phone Amy Gilman MD Primary Care Provider [phone] Allergies Active Allergy Reactions Criticality Noted Date Comments Clonidine 08/28/2011 Diltiazem 08/28/2011 Hydrochlorothiazide 08/28/2011 Metformin Diarrhea 03/04/2018 Nifedipine 08/28/2011 Medications metoprolol succinate XL (TOPROL-XL) 200 MG 24 hr tablet Take 1 tablet by mouth 1 (one) time each day Active furosemide (LASIX) 20 MG tablet Take 1 tablet by mouth 1 (one) time each day Active cholecalciferol (VITAMIN D-3) 25 MCG (1000 UT) capsule Take 1 capsule by mouth 1 (one) time each day Active atorvastatin (LIPITOR) 80 MG tablet Take 1 tablet by mouth 1 (one) time each day Active aspirin (ST SERA) 81 MG EC tablet Take 1 tablet by mouth 1 (one) time each day Active ascorbic acid (VITAMIN C) 500 MG tablet Take 1 tablet by mouth 2 (two) times a day Active amLODIPine (NORVASC) 5 MG tablet Take 1 tablet by mouth 1 (one) time each day Active magnesium oxide (MAG-OX) 400 MG tablet Take 400 mg by mouth 2 (two) times a day 10/12/19 21 Active traMADol (ULTRAM) 50 MG tablet TAKE 1 TABLET BY MOUTH EVERY 8 HOURS NEEDED FOR PAIN 08/08/19 21 Active Canagliflozin (Invokana) 100 MG tabletIndications :Renal disorder due to type 2 diabetes mellitus <Diabetic nephropathy> (HCC),Persistent proteinuria,Stage 3a chronic kidney disease (HCC),Renal osteodystrophy Take 1 tablet by mouth 1 (one) time each day 60 tablet 2 11/30/19 21 Active Acetaminophen Extra Strength 500 MG tablet TAKE 2 TABLETS BY MOUTH EVERY 8 HOURS NEEDED 02/15/20 21 Active cyclobenzaprine (FLEXERIL) 10 MG tablet Take 10 mg by mouth if needed 02/29/20 21 Active Lantus SoloStar 100 UNIT/ML injection INJECT 30 UNITS SUBCUTANEOUSLY EVERY EVENING @ 8 PM 02/08/20 21 Active HumaLOG KWIKPEN 100 UNIT/ML solution pen-injector INJECT 17 UNITS WITH BREAKFAST, 14 UNITS WITH LUNCH, & 10 UNITS WITH DINNER. INCREASE 1-2 EXTRA UNITS FOR HIGH-CARB MEAL, DECREASE BY 1-2 UNITS FOR LOW CARB MEAL. DECREASE 1 UNITS IF 2HR POSTPRANDIAL BLOOD SUGAR <70 02/08/20 21 Active PenTips 32G X 4 MM misc USE TOPICALLY INJECT INSULIN FOUR TIMES DAILY 02/08/20 21 Active Patiromer Sorbitex Calcium (Veltassa) 8.4 g pack Take 8.4 g by mouth 1 (one) time each day 90 each 2 05/14/20 21 Active doxazosin (CARDURA) 4 MG tablet TAKE 1 AND 1/2 TABLETS BY MOUTH TWICE DAILY IN THE MORNING AND IN THE EVENING 270 tablet 3 06/24/19 23 Active Ozempic, 0.25 or 0.5 MG/DOSE, 2 MG/3ML solution pen-injector Inject 0.25 mg under the skin 1 (one) time per week 10/17/19 24 Active sodium bicarbonate 650 MG tablet TAKE 1/2 TABLET BY MOUTH THREE TIMES DAILY IN THE MORNING, EVENING AND BEDTIME 135 tablet 3 02/09/20 24 Active gabapentin (NEURONTIN) 100 MG capsule TAKE 1 CAPSULE BY MOUTH TWICE DAILY IN THE MORNING AND IN THE EVENING 180 capsule 2 03/15/20 24 Active lisinopril 20 MG tabletIndications :Stage 3b chronic kidney disease (HCC),Renal disorder due to type 2 diabetes mellitus <Diabetic nephropathy> (HCC),Essential hypertension Take 1 tablet (20 mg total) by mouth 1 (one) time each day 90 tablet 3 06/28/19 25 026 Active lisinopril 20 MG tabletIndications :Stage 3b chronic kidney disease (HCC),Renal disorder due to type 2 diabetes mellitus <Diabetic nephropathy> (HCC),Essential hypertension Take 1 tablet (20 mg total) by mouth 1 (one) time each day 90 tablet 3 06/20/19 24 01/13/2 025 Disconti nued(Reo rder (does not appear on AVS)) Active Problems Problem Noted Date Diagnosed Date Chronic kidney disease, stage 4 (severe) 024 Osteopenia 06/16/2022 Overview (10/21/2022): Last Assessment & Plan: -Last DEXA scan on 11/06/18 The lowest T-score -1.5 in femoral neck -Repeat DEXA scan -Bisphosphonate is contraindicated due to her CKD Tricuspid valve regurgitation 06/13/2022 Overview (10/21/2022): Last Assessment & Plan: -Last echo on 01/29/22 LVEF 60-65%, [id number] tricuspid regurgitation, mild pulmonary hypertension Stage 3b chronic kidney disease 03/13/2021 Stage 3a chronic kidney disease 10/17/2020 Renal osteodystrophy 10/17/2020 Hyperkalemia 10/17/2020 Anemia of chronic disease 10/10/2020 Essential hypertension 10/10/2020 Hypercalcemia 10/10/2020 Proteinuria 10/10/2020 Renal disorder due to type 2 diabetes mellitus 0 10/10/2020 Type 2 diabetes mellitus 06/13/2015 Overview (10/21/2022): Last Assessment & Plan: Dx: 2002. - Complication: Microalbuminuria / CKD. [...] which was discontinued by pt (prescribed by route vending machine servicer) - Continue diligent SMBG, current medication, and lifestyle modifications. - Last eye exam: > 1 year - Last foot exam: 03/11/22 - Last microalbumin test: 11/30/21 UACR 811 - Last lipid profile: 12/01/20 TC279; HDL 37; LDL 181; TG 361 - Last dental exam: Recommended to schedule Immunizations: up to date Moderate persistent asthma 04/12/2015 Carotid artery stenosis 09/20/2014 Overview (10/21/2022): Last Assessment & Plan: -Last carotid US on 06/30/14 b/l 16-49% stenosis. Obesity 03/26/2012 Allergic rhinitis 02/04/2012 Bilateral cataracts 02/04/2012 Dyslipidemia 02/04/2012 Overview (10/21/2022): Last Assessment & Plan: -Last lipid profile 12/01/20; TC 279; TG 361; HDL 37; LDL 181 -Current mediation: Atorvastin 80 mg at bedtime -She is on high-intensity statin therapy Gastroesophageal reflux disease 02/04/2012 Spinal stenosis of lumbar region 02/04/2012 Resolved Problems Problem Noted Date Diagnosed Date Resolved Date Acidosis 10/10/2020 01/23/2021 Chronic kidney disease stage 3 10/10/2020 01/23/2021 Encounters Date Type Department Care Team Description 06/28/2024 Refill [facility] [address] [address] Karen Marino MA Stage 3b chronic kidney disease (HCC); Renal disorder due to type 2 diabetes mellitus <Diabetic nephropathy> (HCC); Essential hypertension 04/20/2024 Orders Only [facility] [address] [address] Anand Sagastume MD from Last 3 Months Immunizations Name Administration Dates Next Due Influenza Split 04/02/2013,03/26/2012 Influenza Split High Dose Pr eservative Free IM 05/03/2019,04/28/2018 Influenza, Quadrivalent, Wit h Preservative 06/13/2022,05/14/2017,04/10/2016,04/12 Influenza, Unspecified 07/11/2014,2010,02/06/2010,02/27,04/12/2008,03/11/2007,04/18/2006 ,05/08/2005,06/18/2002 Moderna SARS-COV-2 10/23/2021, 1,09/29/2020,09/01 Pneumococcal Conjugate 13-Valent 05/14/2017 Pneumococcal Polysaccharide 05/03/2019, 9,03/14/2003 Shingrix 12/25/2021,10/23/2021 Td 05/17/2010,04/01/2000 Tdap 03/26/2012 Zoster 08/16/2014 Family History Medical History Relation Comments Cancer Father Diabetes Father Hypertension Father Cancer Mother Diabetes Mother Hypertension Mother Relation Status Comments Father Mother Social History Tobacco Use Types Packs/Day Years [...] on file Sexual Orientation Not on file Last Filed Vital Signs Vital Sign Reading Time Taken Comments Blood Pressure 138/66 10/23/2023 1:57 PM EDT Pulse 65 10/23/2023 1:57 PM EDT Temperature - - Respiratory Rate - - Oxygen Saturation 97% 10/23/2023 1:57 PM EDT Inhaled Oxygen Concentration - - Weight 77.7 kg (171 lb 3.2 oz) 10/23/2023 1:57 P M EDT Height 157.5 cm (5' 2 ) 07/13/2020 12:00 PM EST Body Mass Index 31.31 07/13/2020 12:00 PM EST Plan of Treatment Upcoming Encounters Date Type Department Care Team (Late st Contact Info) Description 11/10/2024 2:00 PM EDT Office Visit [facility] [address] [address] Anand Sagastume MD [address] [address] Health Maintenance Due Date Last Done Comments Breast Cancer Screening 1952 Colorectal Cancer Screening: Annual FOBT 2001 Colorectal Cancer Screening: Colonoscopy 2001 Colorectal Cancer Screening: Sigmoidoscopy 2001 Diabetes: Ophthalmology Exam 07/17/2020 Diabetes: Pedal Pulse Checked 07/17/2020 Diabetes: Sensory Foot Exam 07/17/2020 Diabetes: Visual Foot Exam 07/17/2020 Diabetes: Hemoglobin A1C 09/13/2024 06/15/2024, 0406/2023 Hepatitis B Vaccine Aged Out 09/20/2014, 10/26/2013, 06/30/2013 No longer eligible based on patient's age to complete this topic Pneumococcal Vaccine: 65+ Years Completed 05/03/2019, 05/14/2017, 08/10/2008, Additional history exists Influenza Vaccine Completed 02/25/2024, , 06/13/2022, Additional history exists Procedures Procedure Name Priority Date/Time Associated Diagnosis Comments PROTEIN / CREATININE RATIO, URINE Routine 04/20/2024 10:25 AM EST ALBUMIN, URINE, RANDOM Routine 04/20/2024 10:25 AM EST URINALYSIS WITH MICROSCOPIC Routine 04/20/2024 10:25 AM EST VITAMIN D 25 HYDROXY Routine 04/20/2024 10:01 AM EST PTH, INTACT (HC) Routine 04/20/2024 10:0 1 AM EST ALBUMIN Routine 04/20/2024 10:01 AM EST MAGNESIUM Routine 04/20/2024 10:01 AM EST PHOSPHATE ( PHOSPHORUS) Routine 04/20/2024 10:01 AM EST CALCIUM Routine 04/20/2024 10:01 AM EST CREATININE, BLOOD Routine 04/20/2024 10: 01 AM EST BUN Routine 04/20/2024 10:01 AM EST ELECTROLYTE PANEL Routine 04/20/2024 10: 01 AM EST CBC AND DIFFERENTIAL Routine 04/20/2024 10:01 AM EST from Last 3 Months Results * (ABNORMAL) Protein, Total, Random Urine w/Creatinine (Protein/Creat Ratio) (04/20/2024 10:25 AM EST) Protein Urine Random 21(H) <12 mg/dL See order comments Protein/Creatin ine Ratio, Urine 0.16 <0.2 See order comments Comment: The spot urine protein:creatinine ratio may increase to 0.3 during normal . 04/20/2024 10:2 5 AM EST 04/20/2024 10:25 AM EST Anand Sagastume MD LAB URINE ORDERABLES Final sul Performing Organization Address [facility] de Phone Number [employer] See order comments [place] [address] * (ABNORMAL) Albumin, urine, random (04/20/2024 10:25 AM EST) Creatinine, Urine 133.58 mg/dL Se e order comments Urine Microalbumin 102.0 mg/L See order comments Microalbumin/Crea tinine Ratio 76.3(H) <30 ug/mg cr See order comments Comment: ?Albumin/Creatinine Ratio Reference Ranges: ?Normal: < 30 ug/mg creatinine ?Microalbuminuria: ??30 - 300 ug/mg creatinine Clinical Albuminuria: ??> 300 ug/mg creatinine 04/20/2024 10:2 5 AM EST 04/20/2024 10:25 AM EST Anand Sagastume MD LAB URINE ORDERABLES Final Re sult Performing Organization Address [facility] de Phone Number [place] See order comments [place] [address] * (ABNORMAL) Urinalysis with microscopic (04/20/2024 10:25 AM EST) Color Urine Yellow See orde r comments Appearance Urine Clear See order comments pH Urine 7.0 5.0 - 9.0 See order comments Glucose Urine 500(A) Negative mg/dL See order comments Blood, Urine Negative Negative See ord er comments Specific [place] Urine 1.015 1.005 - 1.025 See order comments Protein Urine Trace Neg-Trace mg/dL See order comments Ketones, Urine Negative Negative mg/dL See order comments Nitrite, Urine Negative Negative See o rder comments Leukocyte Esterase Urine Small (1+)(A) Negative See order comments RBC, Urine 0-2 0 - 2 /HPF See orde r comments WBC 0-5 0 - 5 /HPF See order comments Squamous Epithelial, Urine 3-5 0 - 2 /HPF See order comments Bacteria, Urine None Seen None Seen See order comments Hyaline Casts, Urine 0-2 0 - 2 /LPF See order comments 04/20/2024 10:2 5 AM EST 04/20/2024 10:25 AM EST Anand Sagastume MD LAB URINE ORDERABLES Edited R esult - Final Performing Organization Address [facility] de Phone Number [place] See order comments [place] [address] * (ABNORMAL) Creatinine (04/20/2024 10:01 AM EST) Creatinine Serum 1.86(H) 0.5 - 1.4 mg/dL See order comments eGFR 27 See order comments Comment: NOTE: ??For -[place]og[place] individuals, multiply the result ? by 1.210. Chronic Kidney Disease: ??Estimated GFR < 60 mL/min/1.73m2 Severe Kidney Disease: ??Estimated GFR < 15 mL/min/1.73m2 04/20/2024 10:0 1 AM EST 04/20/2024 10:01 AM EST us Anand Sagastume MD LAB BLOOD ORDERABLES Final Re sult Performing Organization Address [facility] de Phone Number [place] See order comments [place] [address] * (ABNORMAL) PTH, Intact (04/20/2024 10:01 AM EST) Parathyroid Hormone, Intact 132.5(H) 8.7 - 77.1 pg/mL See order comments 04/20/2024 10:0 1 AM EST 04/20/2024 10:01 AM EST Anand Sagastume MD LAB [id number] SOLICITED RESULTS Final Result Performing Organization Address [facility] Phone Number [facility] See order comments [place] [address] * Vitamin D 25 Hydroxy (04/20/2024 10:01 AM EST) Vitamin D, 25-Hydroxy 63.0 >30 ng/mL See order comments Comment: Health Based Reference Values* < 20 ??ng/mL ??Deficient 20-30 ng/mL ??Insufficient > 30 ??ng/mL ??Sufficient *Hallie CLOUD. N Engl J Med. 2007;357:266-280 Care must be taken in interpreting Vitamin D results from different laboratories and methodologies. ??Published data demonstrated that results from patients undergoing hemodialysis may show a negative bias when tested with various automated 25-OH vitamin D assays when compared to LC-MS/MS. When testing samples from patients whose predominant form of Vitamin D is Vitamin D2, such as patients receiving Vitamin D2 supplementation, results that are subtherapeutic should be confirmed with another method such as LC-MS/MS. 04/20/2024 10:0 1 AM EST 04/20/2024 10:01 AM EST us Anand Sagastume MD LAB BLOOD ORDERABLES Final Re sult Performing Organization Address [facility] de Phone Number [place] See order comments [place] [address] * (ABNORMAL) CBC and Differential (04/20/2024 10:01 AM EST) WBC 5.9 4.8 - 10.8 X10*3/uL See order comments RBC 4.26 4.20 - 5.50 X10*6/uL See order comments Hgb 12.3 12.0 - 16.0 g/dl See order comments Hematocrit 37.6 37.0 - 47.0 % See order comments MCV 88.3 80.0 - 98.0 fL See order comments MCH 28.9 27.0 - 33.0 pg See order comments MCHC 32.7 31.0 - 35.0 g/dl See order comments RDW 11.9 11.0 - 16.0 % See order comments Platelets 225 160 - 400 X10*3/uL See order comments MPV 11.1 9.4 - 12.3 fL See order comments Neutrophils % Auto 52.9 45 - 73 % See order comments Immature Granulocytes 0.2 0.0 - 0.4 % See order comments Lymphocytes Relative 32.5 20 - 40 % See order comments Monocytes 7.1 2 - 11 % See order comments Eosinophils Relative 6.3(H) 0 - 4 % See order comments Basophils Relative 1.0 0 - 2 % See order comments nRBC Count 0.0 0.0 - 0.2 /100WBC See order comments Neutrophils Absolute 3.1 2.0 - 8.3 x10*3/uL See order comments Immature Grans (Absolute) 0.01 0.00 - 0.03 X10*3/uL See order comments Lymphocytes Absolute 1.9 1.2 - 4.9 X10*3/uL See order comments Monocytes Absolute 0.4 0.1 - 1.2 X10*3/uL See order comments Eosinophils Absolute 0.4 0.0 - 0.4 X10*3/uL See order comments Basophils Absolute 0.1 0.0 - 0.2 X10*3/uL See order comments NRBC Absolute 0.000 0.0 - 0.012 X10*3/uL See order comments 04/20/2024 10:0 1 AM EST 04/20/2024 10:01 AM EST us Anand Sagastume MD LAB BLOOD ORDERABLES Final Re sult [place] See order comments [place] [address] * (ABNORMAL) BUN (04/20/2024 10:01 AM EST) BUN 30(H) 9 - 16 mg/dL See order comments 04/20/2024 10:0 1 AM EST 04/20/2024 10:01 AM EST us Anand Sagastume MD LAB BLOOD ORDERABLES Final Re sult Performing Organization Address [facility] Phone Number [employer] See order comments [place] [address] * Phosphorus (04/20/2024 10:01 AM EST) Phosphorus, Serum 3.4 2.7 - 4.5 mg/dL See order comments 04/20/2024 10:0 1 AM EST 04/20/2024 10:01 AM EST us Anand Sagastume MD LAB BLOOD ORDERABLES Final Re sult Performing Organization Address [facility] de Phone Number [place] See order comments [place] [address] * Magnesium (04/20/2024 10:01 AM EST) Magnesium 2.0 1.6 - 2.6 mg/dL See order comments 04/20/2024 10:0 1 AM EST 04/20/2024 10:01 AM EST us Anand Sagastume MD LAB BLOOD ORDERABLES Final Re sult Performing Organization Address [facility] Phone Number [place] See order comments [place] [address] * Calcium (04/20/2024 10:01 AM EST) Calcium 10.2 8.4 - 10.2 mg/dL See order comments 04/20/2024 10:0 1 AM EST 04/20/2024 10:01 AM EST us Anand Sagastume MD LAB BLOOD ORDERABLES Final Re sult [place] See order comments [place] [address] * Albumin (04/20/2024 10:01 AM EST) Albumin 4.1 3.5 - 5.0 g/dL See order comments 04/20/2024 10:0 1 AM EST 04/20/2024 10:01 AM EST Anand Sagastume MD LAB BLOOD ORDERABLES Final Re sult Performing Organization Address [facility]/ZIP Co de Phone Number [facility] See order comments [place] [address] * Electrolyte panel (04/20/2024 10:01 AM EST) Sodium 135 135 - 145 mmol/L See order comments Potassium 4.5 3.3 - 5.1 mmol/L See order comments Chloride 101 96 - 108 mmol/L See order comments Bicarbonate (CO2) 24 22 - 29 mmol/L See order comments Anion Gap 15 12 - 20 See order comments 04/20/2024 10:0 1 AM EST 04/20/2024 10:01 AM EST us Anand Sagastume MD LAB BLOOD ORDERABLES Final Re sult Performing Organization Address [facility] Co de Phone Number [place] See order comments [place] [address] from Last 3 Months Insurance [facility] ([id number]) [facility] ([id number]) Care Teams Blasting Clay Miner Relationship Specialty Start Date End Date Amy Gilman MD [address] [place], [place] [phone] PCP - General 06/26/20
--- OUTSIDE RECORDS SUMMARY | 2024-07-14 14:44 | XMS_ITS | Encounter Summary ---
Author Organization [facility] Address [address] [place] [address] [address] [address] Care Team Providers Care Automated Logistics Specialist Name Role Phone Amy Gilman MD Primary Care Provider [phone] Joshua Mims PharmD Unavailable [phone] Reason for Visit * Reason Comments Med Refill Encounter Details Date Type Department Care Team (Late st Contact Info) Description 11/17/2022 Refill [facility] [address] [place] [address] Ema Bradford MD [address] [place] [address] Social History Tobacco Use Types Packs/Day Years [...] Recorded In the last 10 days, have yo u been in contact with someone who was confirmed or suspected to have Coronavirus/COVID-19? No / Unsure 11/14/2022 10:58 AM EDT documented as of this encounter Plan of Treatment Upcoming Encounters Date Type Department Care Team (Late Contact Info) Description 07/16/2024 9:30 AM EST Telemedicine [facility] [address] [place] [address] Joshua Mims, PharmD [address] [place] [address] 10/21/2024 3:00 PM EDT Office Visit [facility] [address] [place], [place] [phone] Kaai Mann, OD [address] [place] [address] documented as of this encounter Visit Diagnoses Not on filedocumented in this encounter Care Teams Automated Logistics Specialist Relationship Specialty Start Date End Date Amy Gilman MD [address] [place] [id number] PCP - General Family Medicine 06/16/18 Joshua Mims, PharmD [address] [place] [address] [phone] Pharmacist Internal Medicine 05/05/23 documented as of this encounter
== END 2024-07-14 12:36 | disposition home or self-care (01) ==
LOC: HO.MAMMO 12:35
PROVIDERS: PCP Family Medicine; Visit Provider Family Medicine
DX: Z12.31 Encounter for screening mammogram for malignant neoplasm of breast (principal)
CPT/HCPCS: 77063; 77067

== ENCOUNTER → 2024-07-14 13:45 | Outpatient (BNV) | payer OTHER, SELFPAY | PROVIDERS: PCP Family Medicine; Visit Provider Internal Medicine | DX: Z12.31 Encounter for screening mammogram for malignant neoplasm of breast (principal) | CPT/HCPCS: 77063; 77067 ==

== ENCOUNTER 2024-07-28 11:26 | Outpatient (REF) | payer OTHER, SELFPAY ==
--- NOTE | ~2024-07-28 | MM_ITS ---
EXAMINATION: DXA BONE DENSITY AXIAL HISTORY: Estrogen deficiency TECHNIQUE: Dekko Dual energy absorptiometry (DEXA) of the lumbar spine, total left hip, and femoral neck was performed. COMPARISON: Comparison is made with the prior examination dated 07/04/2022. FINDINGS: The bone mineral density of the lumbar spine is 1.287 with a T-score of 0.7, and a Z-score of 2.2. This represents a BMD change of 6.1% compared to the prior exam. This is statistically significant. The bone mineral density of the left total hip is 0.856 with a T-score of -1.2, and a Z-score of 0.2. This represents BMD change of -5.3% compared to the prior exam. This is statistically significant. The bone mineral density of the left femoral neck is 0.753 with a T-score of -2.0, and a Z-score of -0.4. This represents BMD change of -2.3% compared to the prior exam. FRACTURE RISK: The FRAX index suggests a ten year probability of major osteoporotic fracture of 15.5%, and of hip fracture 6.4%. MM/XR DEXA axial skeleton IMPRESSION: Based on bone mineral density, and according to World Health Organization (WHO) criteria, the diagnosis is consistent with osteopenia. All bone density values are in grams per centimeter squared (g/cm2). Statistically, 68% of repeat scans fall within 1 SD (+/- 0.010 g/cm2 for AP spine L1-L4) and 1 SD (+/- 0.012 g/cm2 for femur total) FRAX is a trademark of the [employer] [place] [employer] Metabolic Bone Disease, a World Health Organization (WHO) Collaborating Center. Electronically signed by: Rene Da Silva MD 07/28/2024 12:21 PM [facility]
--- OUTSIDE RECORDS SUMMARY | 2024-07-28 13:21 | XMS_ITS | Encounter Summary ---
Author Organization [employer] Address [address] [facility] [address] [place] [address] Care Team Providers Care Skip Miner Name Role Phone Amy Gilman MD Primary Care Provider [phone] Joshua Mims PharmD Unavailable [phone] Encounter Details Date Type Department Care Team [...] Care Team (Late st Contact Info) Description 08/13/2024 10:30 AM EST Medication Management [facility] [address] [place] [address] Joshua Mims PharmD [address] [place] [address] 10/21/2024 3:00 PM EDT Office Visit [facility] [address] [place] [address] Kaia Mann, OD [address] [place] [address] documented as of this encounter Goals Goal Patient Goal Type Associated Problems Recent Progress Patient-Stated? Author Blood Pressure < 140/90 Blood Pressure 170/106(07/16 9:23 AM EST) No Joshua Mims PharmD Hemoglobin [...] documented as of this encounter Care Teams Skip Miner Relationship Specialty Start Date End Date Amy Gilman MD [address] [place] [id number] PCP - General Family Medicine 06/16/18 Joshua Mims PharmD [address] [place] [phone] Pharmacist Internal Medicine 05/05/23 documented as of this encounter
--- OUTSIDE RECORDS SUMMARY | 2024-07-28 13:21 | XMS_ITS | Encounter Summary ---
Author Organization [employer] [facility] Address [address] [place] [address] [address] [address] Care Team Providers Care Strategic Communications Manager Name Role Phone Amy Gilman MD Primary Care Provider [phone] Joshua Mims PharmD Unavailable [phone] Encounter Details Date Type Department Care Team (Latest Contact Info) Description 02/07/2022 Abstract [facility] CONVERSIONS Dental, Provider, DDS Social History Tobacco [...] Description 08/13/2024 10:30 AM EST Medication Management [facility] MED[facility]INE [address] [place] [address] Joshua Mims, PharmD [address] [place] [address] 10/21/2024 3:00 PM EDT Office Visit [facility] [address] [place] [address] Kaia Mann OD [address] [place] [address] documented as of this encounter Visit Diagnoses Not on filedocumented in this encounter Care Teams Strategic Communications Manager Relationship Specialty Start Date End Date Amy [place] MD [address] [place] [address] PCP - General Family Medicine 06/16/18 Joshua Mims, MerrickD [address] [place] [address] Pharmacist Internal Medicine 05/05/23 documented as of this encounter
--- OUTSIDE RECORDS SUMMARY | 2024-07-28 13:21 | XMS_ITS | Encounter Summary ---
Author Organization [employer] Address [address] [facility] [address] [place] [address] Care Team Providers Care Terrazzo Laborer Name Role Phone Amy Gilman MD Primary Care Provider [phone] Joshua Mims PharmD Unavailable [phone] Encounter Details Date Type Department Care Team (Late st Contact Info) Description 07/16/2024 9:30 AM EST Telemedicine [facility] [address] [place], [place] [phone] Joshua Mims, PharmD [address] [place], [place] [phone] Essential hypertension (Primary Dx); Type 2 diabetes mellitus with stage 3b chronic kidney disease, with long-term current use of insulin ([facility]); Moderate persistent asthma without complication Social History [...] Sign Reading Time Taken Comments Blood Pressure 170/106 07/16/2024 9:23 AM EST Pulse 71 07/16/2024 9:23 AM EST Temperature - - Respiratory Rate - - Oxygen Saturation - - Inhaled Oxygen Concentration - - Weight - - Height - - Body Mass Index - - documented in this encounter Progress Notes * Joshua Mims, PharmSowmya - 07/16/2024 9:30 AM EST Pharmacy Consult Visit Type: CDTM - Hypertension and CDTM - Diabetes Pharmacist: Joshua Mims, PharmD Loraine Sen is a 74 y.o. year old patient here for follow-up visit completed over the phone. Subjective History: General / Intake (updated 07/16/24) Allergies: is allergic to nifedipine, clonidine, diltiazem, hydrochlorothiazide, and metformin. Read/Write: Yes, in Kyrgyz Recent Hospitalizations: No Social History as reported by patient: Tobacco: Denies Alcohol: Denies Caffeine: Current, 1 cup of coffee with milk and regular sugar/day Illicit drugs: Denies Diet: (7 AM) Breakfast: eggs, potato or white bread. (Fried in oil) (12-1 PM) Lunch: sandwich (white bread) (3 PM) Dinner: Chicken, occasional fish, doesn't eat red meat. Rarely eats rice or pasta, prefers soups or verduras (white yam, yautia, yuca) Exercise: 2-3 times a week, 30-60 minutes of walking Adherence / patient self-management Uses medboxes from [facility] pharmacy Reports satisfaction with medboxes Refill history demonstrates adherence to medications included in the medboxes. Denies starting reduced dose of Ozempic (see below) OTC medication, vitamin, supplement use: Denies Hypertension CDTM TV scheduled for review of BP control as BP had been elevated at last CDTM visit 2 weeks ago. Patient reports adherence and tolerance to current therapy. Patient reports tolerance to amlodipine 5 mg in the past, but dose was reduced in 2022 due to RO. Denies headache, chest pain, dizziness, tiredness. Denies feeling any symptoms even when BP was >180. Patient has been SMBP once daily since last CDTM visit 2 weeks ago. Date Blood pressure (mmHg) Heart rate (bpm) 07/07/24 141/99 73 07/08/24 151/91 70 07/09/24 129/92 90 07/10/24 156/94 65 07/11/24 147/71 76 07/12/24 159/88 70 07/13/24 141/79 73 07/14/24 181/108 71 07/15/24 159/102 71 Type 2 Diabetes Patient reports the following use of injectables: Lantus 30 units daily 8-9 PM, Discontinued Ozempic 2 weeks ago. Denies restarting Ozempic yet. Reports BG has remained steady Patient previously reported tolerating Ozempic 1 mg well. Denied experiencing IRISH until mid May. Reported GI IRISH and lack of appetite with PCP 06/15/2024, PCP reduced Ozempic dose to 0.5 mg. Patient has not started. Weary of restarting Ozempic until stomach symptoms 100% resolve. Pertinent negatives include polyuria, polydypsia, blurred vision Patient reports use of [employer] 2 system, data unavailable during today's visit. denies any hypoglycemic events (BG <70mg/dL) 15-15 rule for hypoglycemia discussed in the past Asthma Current therapy does not include any inhaled medications for asthma control. Patient reports adherence and tolerance to montelukast. Denies use of any inhalers. Objective History: Treatment history/considerations: PMH: DM Type 2, HTN, CKD Stage 3, proteinuria, diabetic nephropathy, obesity, asthma, carotid artery stenosis, tricuspid valce regurgitation, GERD, renal osteodystrophy, dyslipidemia, hyperkalemia, hypercalcemia, osteopenia Medication: Patient's eGFR recently decreased to 25 mL/min/1.73 m2 which means that Jardiance is no longer recommended for glycemic control and 10 mg daily becomes maximum dose indicated for cardiovascular and renal protection. Recent labs: Renal function (03/16/2024): eGFR: 25 mL/min/1.73 m2 SCr = 1.96 mg/dL CrCl (AdjBW)= 25 mL/min LDL 89 mg/dL 07/28/2023 Lab Results Component Value Date ALT 19 12/01/2020 LDLCHOL 240 (H) 06/25/2022 TRIG 270 (H) 07/28/2023 K 4.2 03/16/2024 NA 138 03/16/2024 VITB12 645 03/16/2024 MICROALBCREU 378.0 10/15/2022 CREATININE 1.96 (H) 03/16/2024 EGFR 25 03/16/2024 HGBA1C 6.5 (A) 06/15/2024 HGBA1C 7.7 (A) 03/16/2024 HGBA1C 8.8 (A) 12/24/2023 Recent blood pressure readings: BP Readings from Last 4 Encounters: 07/16/24 (!) 170/106 07/01/24 (!) 146/88 06/15/24 140/84 03/31/24 118/60 Pulse Readings from Last 4 Encounters: 07/16/24 71 07/01/24 76 06/15/24 85 03/31/24 81 Immunizations Due: COVID-19 and RSV (age 60-74 yo with risk factor(s)) Unable to offer vaccine during today's visit. Patient declined at last CDTM visit 2 weeks ago. Preferred Pharmacy: [facility] - [address] [id number] Assessment/Plan: Hypertension Pharmacotherapy: Amlodipine 2.5 mg PO daily Doxazosin 8 mg PO at bedtime Furosemide 10 mg (1/2 of 20 mg tablet) PO daily Lisinopril 20 mg PO daily Metoprolol ER 200 mg PO QAM Goals of Therapy per JNC 8: Achieve BP <140/90mmHg Plan: BP has not been at goal per SMBP and office measurements. Patient agrees to increase amlodipine to 5 mg po daily. Potential side effects reviewed, particularly RO. Patient will contact the office for new or worsening RO. CDTM FU in 4 weeks for BP check. CKD and history of hyperkalemia limit options for therapy intensification. May consider dose titration of doxazosin in the future if necessary. Education: Reviewed benefits of DASH diet and increased exercise for improved BP control. Counseling provided to SMBP daily & log results for review in follow up. Reviewed BP goals, patient instructed to call if extremes of BP are noted prior to next scheduled visit. Type 2 Diabetes Pharmacologic Therapy: Lantus, Inject 33 units subcutaneously daily (actual use: 30) Ozempic 0.5 mg subcutaneously once a week Jardiance 10 mg po daily Additional recommendations per ADA: On aspirin: Yes, for secondary prevention Reported history of stroke 20+ years ago in [place], Cardiology monitoring carotid artery stenosis. On statin: Yes (atorvastatin 80 mg, high intensity) On ACEI/ARB: Yes Dental Exam in the past 6 mo: No, agreed to schedule dentist appointment Eye Exam in the past 12 mo: Yes (04/21/2023) Goals of therapy: Per the ADA Standards of Medical Care in Diabetes Achieve A1c of < 8.0% while also minimizing episodes of hypoglycemia (Age 73 + HTN, CKD Stage 3,Stroke + Hx of hypoglycemia) Plan: Unable to review BG data during today's BP check but patient has not followed plan. Reviewed Ozempic use again briefly and patient agrees to restart before next visit. CDTM FU scheduled in 4 weeks. Will assess GLP-1 tolerance and evaluate AGP report. Education: Healthy diet and lifestyle. Discussed role of A1c monitoring, A1c and SMBG goals Reviewed risks of macrovascular and microvascular complications of uncontrolled T2DM Reviewed signs, symptoms and treatments of hypoglycemia to which patient confirmed understanding. Asthma Pharmacologic Therapy: Montelukast 10 mg po daily Goals of Therapy per NAEPP Guidelines for Asthma 2020 Optimize therapy to achieve symptom control (defined as rescue inhaler use < 2x per week). Prevent hospitalization secondary to exacerbation Plan: Symptoms will continue to be monitored. documented in this encounter Plan of Treatment Upcoming Encounters Date Type Department Care Team (Late st Contact Info) Description 08/13/2024 10:30 AM EST Medication Management [facility] [address] [place] [address] Joshua Mims PharmD [address] [place] [address] 10/21/2024 3:00 PM EDT Office Visit [facility] [address] [place] [address] Kaia Mann, BETTYE [address] [place] [address] documented as of this encounter Goals Goal Patient Goal Type Associated Problems Recent Progress Patient-Stated? Author Blood Pressure < 140/90 Blood Pressure 170/106(07/16 9:23 AM EST) No Joshua Mims PharmD Hemoglobin A1c < 7 Result Component 6.5(12/31/202 4 11:27 AM EST) No Joshua Mims, PharmD Note: Age + HTN, CKD, Hx Stroke make more relaxed goal (8%) reasonable documented as of this encounter Visit Diagnoses Diagnosis Essential hypertension- Primary Unspecified essential hypertension Type 2 diabetes mellitus with stage 3b chronic kidney disease, with long-term current use of insulin ([facility]) Moderate persistent asthma without complication documented in this encounter Additional Health Concerns Assessment Noted Time PHQ-9 Depression Total Score: 0 12/25/19 23 1:34 PM EDT documented as of this encounter Care Teams Terrazzo Laborer Relationship Specialty Start Date End Date Amy Gilman MD [address] [place] [address] PCP - General Family Medicine 06/16/18 Joshua Mims, PharmD [address] [place] [address] Pharmacist Internal Medicine 05/05/23 documented as of this encounter
--- OUTSIDE RECORDS SUMMARY | 2024-07-28 13:21 | XMS_ITS | Clinical Summary ---
Author Organization [facility] Address [address] [place] [address] Phone Care Team Providers Care Slitter Creaser Slotter Operator Name Role Phone Amy Gilman MD Primary Care Provider [phone] Allergies Active Allergy Reactions Criticality Noted Date [...] 08/08/19 21 Active Canagliflozin (Invokana) 100 MG tabletIndications: Renal disorder due to type 2 diabetes [...] 2 03/15/20 24 Active lisinopril 20 MG tabletIndications: Stage 3b chronic kidney disease (HCC),Renal disorder due to type 2 diabetes mellitus <Diabetic nephropathy> (HCC),Essential hypertension Take 1 tablet (20 mg total) by mouth 1 (one) time each day 90 tablet 3 06/28/19 25 026 Active Active Problems Problem Noted Date Diagnosed Date Chronic kidney disease, stage 4 (severe) 024 Osteopenia 06/16/2022 Overview (10/21/2022): Last Assessment & Plan: -Last DEXA scan on 11/06/18 The lowest T-score -1.5 in femoral neck -Repeat DEXA scan -Bisphosphonate is contraindicated due to her CKD Tricuspid valve regurgitation 06/13/2022 Overview (10/21/2022): Last Assessment & Plan: -Last echo on 01/29/22 LVEF 60-65%, [id number] tricuspid regurgitation, mild pulmonary hypertension Stage 3b [...] which was discontinued by pt (prescribed by group home worker) - Continue diligent SMBG, current medication, and [...] 06/28/2024 Refill [facility] [address] [place] [phone] Karen Marino MA Stage 3b chronic kidney disease (HCC); Renal disorder due to type 2 diabetes mellitus <Diabetic nephropathy> (HCC); Essential hypertension from Last 3 Months Immunizations Name Administration Dates Next Due Influenza Split 04/02/2013,03/26/2012 Influenza Split High Dose Pr eservative Free IM 05/03/2019,04/28/2018 Influenza, Quadrivalent, Wit h Preservative 06/13/2022,05/14/2017,04/10/2016,04/12 Influenza, Unspecified 07/11/2014,2010,02/06/2010,02/27,04/12/2008,03/11/2007,04/18/2006 ,05/08/2005,06/18/2002 Moderna SARS-COV-2 10/23/2021,,09/29/2020,09/01 Pneumococcal Conjugate 13-Valent 05/14/2017 Pneumococcal Polysaccharide 05/03/2019, [...] Visit [facility] [address] [address] Anand Sagastume MD [address] [phone] Health Maintenance Due Date Last Done Comments [...] Completed 02/25/2024, , 06/13/2022, Additional history exists Insurance [facility] ([id number]) [facility] ([id number]) Care Teams Slitter Creaser Slotter Operator Relationship Specialty Start Date End Date Amy Gilman MD [address] [place] [phone] PCP - General 06/26/20
--- OUTSIDE RECORDS SUMMARY | 2024-07-28 13:21 | XMS_ITS | Encounter Summary ---
Author Organization [facility] Address [address] [facility] [address] [place] [address] Phone Care Team Providers Care Benefits Clerk Name Role Phone Amy Gilman MD Primary Care Provider [phone] Reason for Visit * Reason Onset Date Comments Med Refill 06/28/2024 Encounter Details Date Type Department Care Team (Late Contact Info) Description 06/28/2024 Refill [facility] [address] [facility] [address] [place] [address] Karen Marino MA [address] [facility] [address] [place] [address] Stage 3b chronic kidney disease [...] Office Visit [facility] [address] [facility] [address] [place] [address] Anand Sagastume MD [address] [facility] [address] [place] [address] documented as of this encounter Visit Diagnoses Diagnosis Stage 3b chronic kidney disease (HCC) Renal disorder due to type 2 diabetes mellitus <Diabetic nephropathy> (HCC) Essential hypertension documented in this encounter Care Teams Benefits Clerk Relationship Specialty Start Date End Date Amy Gilman MD [address] [place] [phone] PCP - General 06/26/20 documented as of this encounter
--- OUTSIDE RECORDS SUMMARY | 2024-07-28 13:21 | XMS_ITS | Clinical Summary ---
Author Organization [facility] Address [address] [place] [address] Care Team Providers Care Harm Reduction Worker Name Role Phone Amy Gilman MD Primary Care Provider [phone] Joshua Mims PharmD Unavailable [phone] Allergies Active Allergy Reactions Criticality Noted Date Comments Clonidine 08/28/2011 Diltiazem 08/28/2011 Hydrochlorothiazide 08/28/2011 Metformin Diarrhea 03/04/2018 Nifedipine Swelling Medium 08/28/2011 Peripheral Edema Medications sodium bicarbonate 650 MG tablet TAKE 1/2 TABLET BY MOUTH THREE TIMES DAILY IN THE MORNING, EVENING AND BEDTIME 05/27/20 22 Active lisinopril 20 MG tablet Take 20 mg by mouth in the morning. 04/04/20 22 Active gabapentin (Neurontin) 100 MG capsule TAKE 1 CAPSULE BY MOUTH TWICE DAILY IN THE MORNING AND IN THE EVENING 04/04/20 22 Active ProAir HFA 108 (90 Base) MCG/ACT inhaler INHALE 2 PUFFS BY MOUTH EVERY 4 TO 6 HOURS NEEDED FOR DIFFICULTY BREATHING UP TO FOUR TIMES DAILY 12/19/19 22 Active acetaminophen (Tylenol 8 Hour) 650 MG ER tablet TAKE 2 TABLETS BY MOUTH EVERY 8 HOURS NEEDED SWALLOW WHOLE WITH WATER 12/19/19 22 Active albuterol (2.5 MG/3ML) 0.083% nebulizer solutionIndicati ons:Moderate persistent asthma without complication Take 3 mL (2.5 mg) by nebulization every 4 (four) hours if needed for wheezing. 75 mL 3 06/16/19 23 Active Diclofenac Sodium 1 % gelIndications:P ain APPLY 2 GRAMS TOPICALLY TO AFFECTED AREA(S) TWICE DAILY 100 g 2 08/31/19 23 Active cromolyn (Opticrom) 4 % ophthalmic solution Instill 1 to 2 drops to each eye 4 to 6 times a day as needed 10 mL 3 12/25/19 23 Active Pentips 32G X 4 MM misc USE FOUR TIMES DAILY TO INJECT LANTUS AND HUMALOG 200 each 01/30/20 23 Active Flovent HFA 220 MCG/ACT inhaler USE 1 PUFF TWICE DAILY. RINSE MOUTH AFTER USING. 12 g 11 03/11/20 23 Active Continuous Blood Gluc Square Dance Caller (FreeStyle Starla 2 [place]) device Use as directed 1 each 1 04/04/20 23 Active glucose 4 g chewable tablet Chew 4 tablets by mouth as needed for hypoglycemia. 40 tablet 5 06/02/20 23 Active cetirizine (ZyrTEC) 5 MG tabletIndication s:Allergic rhinitis, unspecified seasonality, unspecified trigger TAKE 1 TABLET BY MOUTH ONCE DAILY NEEDED FOR ALLERGIES. 90 tablet 3 08/18/19 24 Active montelukast (Singulair) 10 MG tablet TAKE 1 TABLET BY MOUTH EVERY EVENING 90 tablet 3 09/15/19 24 Active metoprolol succinate XL (Toprol-XL) 200 MG 24 hr tablet Do not crush or chew.TAKE 1 TABLET BY MOUTH EVERY MORNING 30 tablet 11 11/12/19 24 Active cholecalciferol (Vitamin D-3) 25 MCG tablet TAKE 1 TABLET BY MOUTH EVERY MORNING 90 tablet 3 11/18/19 24 Active atorvastatin (Lipitor) 80 MG tablet TAKE 1 TABLET BY MOUTH AT BEDTIME 90 tablet 3 01/12/20 24 Active doxazosin (Cardura) 8 MG tablet TAKE 1 TABLET BY MOUTH AT BEDTIME 90 tablet 3 01/12/20 24 Active glucose blood (FreeStyle Precision Neno Test) test stripIndications :Type 2 diabetes mellitus with stage 3b chronic kidney disease, with long-term current use of insulin ([facility]) USE TO TEST BLOOD SUGAR UP TO THREE TIMES DAILY NEEDED FOR LOW BLOOD SUGAR 100 strip 5 01/19/20 24 Active insulin glargine (Lantus SoloStar) 100 UNIT/ML penIndications:T ype 2 diabetes mellitus with stage 3b chronic kidney disease, with long-term current use of insulin (CMS/HCC) INJECT 33 UNITS SUBCUTANEOUSLY AT 8 IN THE EVENING. 30 mL 3 01/28/20 24 Active magnesium oxide (Mag-Ox) 400 MG tablet TAKE 1 TABLET BY MOUTH TWICE DAILY IN THE MORNING AND IN THE EVENING 180 tablet 3 03/15/20 24 Active Aspirin Low Dose 81 MG EC tablet TAKE 1 TABLET BY MOUTH EVERY EVENING 90 tablet 3 03/15/20 24 Active furosemide (Lasix) 20 MG tabletIndication s:Essential hypertension TAKE 1/2 TABLET BY MOUTH EVERY MORNING 45 tablet 3 03/15/20 24 Active Continuous Glucose Sensor (FreeStyle Starla 2 Sensor) miscIndications: Type 2 diabetes mellitus with stage 3b chronic kidney disease, with long-term current use of insulin (CMS/[facility]) Use as directed 2 each 11 03/31/20 24 Active empagliflozin (Jardiance) 10 MGIndications:Ty pe 2 diabetes mellitus with stage 3b chronic kidney disease, with long-term current use of insulin (CMS/[facility]) Take 1 tablet (10 mg) by mouth in the morning. 30 tablet 5 03/31/20 24 Active Lancets (OneTouch Delica Plus [id number]) miscIndications: Type 2 diabetes mellitus with stage 3b chronic kidney disease, with long-term current use of insulin ([facility]) Use three times daily as needed 100 each 11 03/31/20 24 Active semaglutide (Ozempic) 2 MG/1.5ML solution pen-injector Inject 0.5 mg under the skin 1 (one) time per week. 1 each 12 06/15/20 24 Active amLODIPine (Norvasc) 5 MG tabletIndication s:Essential hypertension Take 1 tablet (5 mg) by mouth Once per day. 90 tablet 1 07/22/19 25 Active ezetimibe (Zetia) 10 MG tablet Take 1 tablet (10 mg) by mouth in the morning. 90 tablet 3 09/25/19 24 025 Discontin ued(Side effects) amLODIPine (Norvasc) 2.5 MG tablet TAKE 1 TABLET BY MOUTH EVERY MORNING 90 tablet 3 12/15/19 24 025 Discontin ued(Dose adjustmen t) Active Problems Problem Noted Date Diagnosed Date [...] weight bearing exercise - Consider referring to tower watchman for other alternatives Assessment & Plan (06/16/2022 6:36 PM EST): -Last DEXA scan on 11/06/18 The lowest T-score -1.5 in femoral neck -Repeat DEXA scan -Bisphosphonate is contraindicated due to her CKD Tricuspid valve regurgitation 06/13/2022 Overview (05/05/2023): Last Assessment & Plan: -Last echo on 01/29/22 LVEF 60-65%, [id number] tricuspid regurgitation, mild pulmonary hypertension Assessment & Plan (12/24/2022 3:17 PM EDT): -Last echo on 01/29/22 LVEF 60-65%, razd-[id number] tricuspid regurgitation, mild pulmonary hypertension Assessment & Plan (06/13/2022 9:10 AM EST): -Last echo on 01/29/22 LVEF 60-65%, wzpu-ng-xefmrgso tricuspid regurgitation, mild pulmonary hypertension Hyperkalemia 10/17/2020 [...] level in Apr 2024 - followed by instrument repair supervisor - continue vitamin D Proteinuria 10/10/2020 Type [...] which was discontinued by pt (prescribed by instrument repair supervisor); discontinued dulaglutide due to adverse reaction - Continue diligent SMBG, current medication, and lifestyle modifications. - Last eye exam: 04/21/23 - Last foot exam: Jun 2023, high risk due to PAD - Last microalbumin test: 04/20/24 UACR 78 (done at instrument repair supervisor's office) - Last lipid profile: 07/28/23 - [...] which was discontinued by pt (prescribed by instrument repair supervisor); discontinued dulaglutide due to adverse reaction - [...] which was discontinued by pt (prescribed by instrument repair supervisor); discontinued dulaglutide due to adverse reaction - [...] which was discontinued by pt (prescribed by instrument repair supervisor); discontinued dulaglutide due to adverse reaction - [...] which was discontinued by pt (prescribed by instrument repair supervisor); discontinued dulaglutide due to adverse reaction - [...] which was discontinued by pt (prescribed by instrument repair supervisor); discontinued dulaglutide due to adverse reaction - [...] which was discontinued by pt (prescribed by instrument repair supervisor); discontinued dulaglutide due to adverse reaction - [...] which was discontinued by pt (prescribed by instrument repair supervisor) - Continue diligent SMBG, current medication, and [...] Plan (06/25/2024 6:19 AM EST): -followed by instrument repair supervisorDr. Sagastume -on sodium bicarbonate for metabolic acidosis and patiromer for hyperkalemia -Avoid nephrotoxic drugs -Renal dose meds -Continue SGLT2i Assessment & Plan (03/16/2024 2:20 PM EDT): -followed by instrument repair supervisorDr. Sagastume -on sodium bicarbonate for metabolic acidosis and patiromer for hyperkalemia -most recent lab : 10/15/22 Sodium 133 ; BUN 41 ; WBC 7.3 ; Hemoglobin 11.1 ; Hct 33.7 ; Carbon Dioxide 22 ; Creatinine 1.51 -Avoid nephrotoxic drugs -Renal dose meds Assessment & Plan (10/06/2023 6:24 AM EDT): -followed by instrument repair supervisorDr. Sagastume -on sodium bicarbonate for metabolic acidosis and patiromer for hyperkalemia -most recent lab : 10/15/22 Sodium 133 ; BUN 41 ; WBC 7.3 ; Hemoglobin 11.1 ; Hct 33.7 ; Carbon Dioxide 22 ; Creatinine 1.51 -Avoid nephrotoxic drugs -Renal dose meds Assessment & Plan (06/22/2023 7:31 AM EST): -followed by instrument repair supervisorDr. Sagastume -on sodium bicarbonate for metabolic acidosis and patiromer for hyperkalemia -most recent lab : 10/15/22 Sodium 133 ; BUN 41 ; WBC 7.3 ; Hemoglobin 11.1 ; Hct 33.7 ; Carbon Dioxide 22 ; Creatinine 1.51 -Avoid nephrotoxic drugs -Renal dose meds Assessment & Plan (04/01/2023 5:43 AM EDT): -followed by instrument repair supervisorDr. Sagastume -on sodium bicarbonate for metabolic acidosis and patiromer for hyperkalemia -most recent lab : 10/15/22 Sodium 133 ; BUN 41 ; WBC 7.3 ; Hemoglobin 11.1 ; Hct 33.7 ; Carbon Dioxide 22 ; Creatinine 1.51 -Avoid nephrotoxic drugs -Renal dose meds Assessment & Plan (02/23/2023 11:52 AM EDT): -followed by instrument repair supervisorDr. Sagastume -on sodium bicarbonate for metabolic acidosis and patiromer for hyperkalemia -most recent lab : 10/15/22 Sodium 133 ; BUN 41 ; WBC 7.3 ; Hemoglobin 11.1 ; Hct 33.7 ; Carbon Dioxide 22 ; Creatinine 1.51 -Avoid nephrotoxic drugs -Renal dose meds Assessment & Plan (12/31/2022 9:40 AM EDT): -followed by instrument repair supervisorDr. Sagastume -on sodium bicarbonate for metabolic acidosis and patiromer for hyperkalemia -most recent lab : 10/15/22 Sodium 133 ; BUN 41 ; WBC 7.3 ; Hemoglobin 11.1 ; Hct 33.7 ; Carbon Dioxide 22 ; Creatinine 1.51 -Avoid nephrotoxic drugs -Renal dose meds Assessment & Plan (06/16/2022 6:31 PM EST): -followed by instrument repair supervisorDr. Sagastume -on sodium bicarbonate for metabolic acidosis [...] today -Hx of refractory hypertension -Comanaged with instrument repair supervisor, patent prosecution attorney, and pharmacist -Continue lisinopril 40 mg daily [...] tolerating amlodipine. Will monitor her intolerance closely. Larry Car Operator: ELLA, last seen in Jul 2023 Railroad Yard Worker: Dr. Sagastume, last seen in October 2022 [...] today -Hx of refractory hypertension -Comanaged with instrument repair supervisor, patent prosecution attorney, and pharmacist -Continue lisinopril 40 mg daily [...] tolerating amlodipine. Will monitor her intolerance closely. Larry Car Operator: ELLA, last seen in Jul 2023 Railroad Yard Worker: Dr. Sagastume, last seen in October 2022 [...] 130/80) -Hx of refractory hypertension -Comanaged with instrument repair supervisor, patent prosecution attorney, and pharmacist -Continue lisinopril 40 mg daily [...] tolerating amlodipine. Will monitor her intolerance closely. Larry Car Operator: ELLA, last seen in Jul 2023 Railroad Yard Worker: Dr. Sagastume, last seen in October 2022 [...] amlodipine. Will monitor her intolerance closely. ?? Larry Car Operator: ELLA, last seen in Jan 2023 Railroad Yard Worker: Dr. Sagastume, last seen in October 2022 [...] amlodipine. Will monitor her intolerance closely. ?? Larry Car Operator: ELLA, last seen on 02/21/22 Railroad Yard Worker: Dr. Sagastume, last seen in 01/08/22 Echocardiogram: [...] tolerating amlodipine. Will monitor her intolerance closely. Larry Car Operator: ELLA, last seen on 02/21/22 Railroad Yard Worker: Dr. Sagastume, last seen in 01/08/22 Echocardiogram: [...] tolerating amlodipine. Will monitor her intolerance closely. Larry Car Operator: ELLA, last seen on 02/21/22 Railroad Yard Worker: Dr. Sagastume, last seen in 01/08/22 Echocardiogram: [...] tolerating amlodipine. Will monitor her intolerance closely. Larry Car Operator: ELLA, last seen on 02/21/22 Railroad Yard Worker: Dr. Sagastume, last seen in 01/08/22 Echocardiogram: [...] on 06/30/14 b/l 16-49% stenosis. -check with patent prosecution attorney for more recent US reprot -upcoming appt with patent prosecution attorney on 02/11/23, carotid US in Jun 2023. -continue working on risk factor management Assessment & Plan (02/23/2023 11:50 AM EDT): -Last carotid US on 06/30/14 b/l 16-49% stenosis. -check with patent prosecution attorney for more recent US reprot -upcoming appt with patent prosecution attorney on 02/11/23, carotid US in Jun 2023. -continue working on risk factor management Assessment & Plan (12/31/2022 9:37 AM EDT): -Last carotid US on 06/30/14 b/l 16-49% stenosis. -check with patent prosecution attorney for more recent US reprot Assessment & Plan (06/13/2022 9:11 AM EST): -Last carotid US on 06/30/14 b/l 16-49% stenosis. Allergic rhinitis 02/04/2012 Assessment & Plan (12/24/2022 2:56 PM EDT): continue Singulair, Cetrizine, and ipratropium nasal spray, Pt requested Saline Nasal [place], will prescribe Treatment Hx; Flonase is ineffective [...] Encounters Date Type Department Care Team Description 07/16/2024 9:30 AM EST Telemedicine [address] [address] Joshua Mims, Tana Essential hypertension (Primary Dx); Type 2 diabetes mellitus with stage 3b chronic kidney disease, with long-term current use of insulin ([facility]); Moderate persistent asthma without complication 07/14/2024 Orders Only [facility] [place] [address] Amy Gilman MD 07/01/2024 Travel 06/15/2024 11:15 AM EST Office Visit [facility] [place] [address] Amy Gilman MD Essential hypertension (Primary Dx); [...] counseling; Overweight; Chronic anemia; Hypercalcemia 06/11/[address] [facility] [address] [place] [address] Jaylin Schuster MA chart prep 04/27/2024 Orders Only [facility] [address] [place] [address] Amy Gilman MD Type 2 diabetes mellitus with stage 3b chronic kidney disease, with long-term current use of insulin ([facility]) (Primary Dx); Essential hypertension; Moderate persistent asthma without complication from Last 3 Months Immunizations Name Administration [...] Pulse 71 07/16/2024 9:23 AM EST Temperature 36.2 ??C (97.2 ??F) [...] Description 08/13/2024 10:30 AM EST Medication Management [facility] [address] [place] [address] Joshua Mims, PharmD [address] [place] [address] 10/21/2024 3:00 PM EDT Office Visit [facility] [address] [place], [place] [id number] Kaia Mann, OD [address] [place] [address] Health Maintenance Due Date Last Done Comments [...] 07/28/2024 07/28/2023, 06/16, 12/01/2020 Diabetes: Hemoglobin A1C 12/13/202406/15/2 024, 03/16/2024, 12/24/2023, Additional history exists Depression Screening 03/16/2025 03/16/2024, 12/25/19 23 SDOH Screening 03/16/2025 03/16/2024 Tobacco Screening 03/16/2025 03/16/2024 Eye Exam 04/21/2025 04/21/2023, 11/2022, 04/21/2023, Additional history exists Mammogram 07/14/2026 07/14/2024, 06/17, 07/05/2022, Additional history exists Colorectal Cancer Screening 10/12/2026 [...] Pressure 170/106(07/16 9:23 AM EST) No Joshua Mims, PharmD Hemoglobin A1c < 7 Result Component 6.5( 11:27 AM EST) No Joshua Mims, PharmD Note: Age + HTN, CKD, Hx Stroke make more relaxed goal (8%) reasonable Procedures Procedure Name Priority Date/Time Associated Diagnosis Comments BD DEXA AXIAL Routine 07/28/2024 11:30 AM EST Osteopenia of neck of femur, unspecified laterality BI MAMMOGRAM SCREENING TOMOSYNTHESIS BILATERAL Routine 07/14/2024 1:45 PM EST POCT GLYCATED HEMOGLOBIN, TOTAL Routine 06/15/2024 11:27 AM EST Type 2 diabetes mellitus with stage 3b chronic kidney disease, with long-term current use of insulin (CMS/HCC) POCT GLUCOSE Routine 06/15/2024 11:27 AM EST Type 2 diabetes mellitus with stage 3b chronic kidney disease, with long-term current use of insulin (CMS/[facility]) LAB COLOGUARD?? COLON CANCER SCREEN Routine 10/13/2023 6:30 AM EDT Colon cancer screening LIPID PANEL, STANDARD Routine 07/28/2023 9:03 AM EST from Last 3 Months or Most Recently Relevant to Health Maintenance Results * BD DEXA Axial (07/28/2024 11:30 AM EST) Anatomical Region Laterality Modality Body Radiographic Nina ging 07/28/2024 11:3 0 AM EST Narrative 07/28/2024 12:24 PM EST ? [facility] [place] ? [address] ?[place] [address] ? Mammography Report ? Signed ? Patient: Mason,Loraine ?MR#: [id number] ? : 1950 ?Acct:[id number] ? Age/Sex: 74 / F ?ADM Date: 02/12/25 ? Loc: HO.MAMMO ? Attending Eboni Gilman MD ? Ordering Physician: Amy Gilman MD ?Results: ? Date of Service: 07/28/24 ?Follow Up: ? Procedure(s): XR DEXA axial skeleton ?? Accession Number(s): [id number] ? cc: Amy Gilman MD ? EXAMINATION: ??DXA BONE DENSITY AXIAL ? HISTORY: ??Estrogen deficiency ? TECHNIQUE: [employer] Dual energy absorptiometry (DEXA) ?? of the lumbar spine, total left hip, and femoral neck was performed. ? COMPARISON: Comparison is made with the prior examination dated ?? 07/04/2022. ? FINDINGS: ? The bone mineral density of the lumbar spine is 1.287 with a T-score of ?? 0.7, and a Z-score of 2.2. ? This represents a BMD change of 6.1% compared to the prior exam. ??This ?? is statistically significant. ? The bone mineral density of the left total hip is 0.856 with a T-score ?? of -1.2, and a Z-score of 0.2. ? This represents BMD change of -5.3% compared to the prior exam. ??This ?? is statistically significant. ? The bone mineral density of the left femoral neck is 0.753 with a ?? T-score of -2.0, and a Z-score of -0.4. ? This represents BMD change of -2.3% compared to the prior exam. ? FRACTURE RISK: ?? The FRAX index suggests a ten year probability of major osteoporotic ?? fracture of 15.5%, and of hip fracture 6.4%. ? MM/XR DEXA axial skeleton ?? IMPRESSION: ?? Based on bone mineral density, and according to World Health ?? Organization (WHO) criteria, the diagnosis is consistent with ?? osteopenia. ? All bone density values are in grams per centimeter squared (g/cm2). ?? Statistically, 68% of repeat scans fall within 1 SD (+/- 0.010 g/cm2 ?? for AP spine L1-L4) and 1 SD (+/- 0.012 g/cm2 for femur total) ?? FRAX is a trademark of the [employer]'s ?? [place] for Metabolic Bone Disease, a World Health Organization (WHO) ?? Collaborating Center. ? Electronically signed by: ??Rene Da Silva MD ??07/28/2024 12:21 PM EST ?? RP ? Dictated By: ?Rene Da Silva MD ? Signed By: ?<Electronically signed by Rene Da Silva MD in OV> ?07/28/24 1221 ? DD/ 1130 ? TD/TT: 07/28/24 1150 ? Setter Induction Heating Equipment: ? Procedure Note Sinan, Image - 07/28/2024 [facility] [address] [place] [address] Mammography Report Signed Patient: Fabian Cuevas#: [id number] : 1950cct:[id number] Age/Sex: 74 / FADM Date: 07/28/24 Loc: [facility] Attending Dr: Amy Gilman MD Ordering Physician: Amy Gilman MDResults: Date of Service: 07/28/24Follow Up: Procedure(s): XR DEXA axial skeleton Accession Number(s): [id number] cc: Amy Gilman MD EXAMINATION: DXA BONE DENSITY AXIAL HISTORY: Estrogen deficiency TECHNIQUE: [employer] Dual energy absorptiometry (DEXA) of the lumbar spine, total left hip, and femoral neck was performed. COMPARISON: Comparison is made with the prior examination dated 07/04/2022. FINDINGS: The bone mineral density of the lumbar spine is 1.287 with a T-score of 0.7, and a Z-score of 2.2. This represents a BMD change of 6.1% compared to the prior exam. This is statistically significant. The bone mineral density of the left total hip is 0.856 with a T-score of -1.2, and a Z-score of 0.2. This represents BMD change of -5.3% compared to the prior exam. This is statistically significant. The bone mineral density of the left femoral neck is 0.753 with a T-score of -2.0, and a Z-score of -0.4. This represents BMD change of -2.3% compared to the prior exam. FRACTURE RISK: The FRAX index suggests a ten year probability of major osteoporotic fracture of 15.5%, and of hip fracture 6.4%. MM/XR DEXA axial skeleton IMPRESSION: Based on bone mineral density, and according to World Health Organization (WHO) criteria, the diagnosis is consistent with osteopenia. All bone density values are in grams per centimeter squared (g/cm2). Statistically, 68% of repeat scans fall within 1 SD (+/- 0.010 g/cm2 for AP spine L1-L4) and 1 SD (+/- 0.012 g/cm2 for femur total) FRAX is a trademark of the [employer] [place] for Metabolic Bone Disease, a World Health Organization (WHO) Collaborating Center. Electronically signed by: Rene Da Silva MD 07/28/2024 12:21 PM EST Dictated By: Rene Da Silva MD Signed By: <Electronically signed by Rene Da Silva MD in OV> 07/28/24 1221 DD/ 1130 TD/TT: 07/28/24 1150 Setter Induction Heating Equipment: us Amy Gilman MD IM DXA PROCEDURES Final Result * BI Mammogram Screening Tomosynthesis Bilateral (07/14/2024 1:45 PM EST) Anatomical Region Laterality Modality Breast Bilateral Mammography 07/14/2024 1:45 PM EST Narrative 07/24/2024 12:45 PM EST ? [facility] [place] ? [address] ?[place] [address] ? Mammography Report ? Signed ? Patient: Mason,Loraine ?MR#: [id number] ? : 1950 ?Acct:[id number] ? Age/Sex: 74 / F ?ADM Date: 07/14/24 ? Loc: HO.MAMMO ? Attending Dr: Amy Gilman MD ? Ordering Physician: Amy Gilman MD ?Results: 2Benign F ?? indings ? Date of Service: 07/14/24 ?Follow Up: 1 Year From Orig ?? inal Mammogram ? Procedure(s): MM tomosynthesis screening BI ?? Accession Number(s): [id number] ? cc: Amy Gilman MD ? EXAMINATION: ?? MM SCREENING DIGITAL BREAST TOMOSYNTHESIS, BILATERAL ? CLINICAL INFORMATION: ? Screening. Asymptomatic. ? COMPARISON: ?? Mammography: Comparison is made with available priors ? TECHNIQUE: ?? Digital breast mammography with tomosynthesis is performed in both the ?? craniocaudal and mediolateral oblique views along with computer-aided ?? detection (CAD). ? FINDINGS: ?? There are scattered areas of fibroglandular density (ACR BI-RADS breast ?? composition Category b). ?? Bilateral secretory calcifications are benign. ?? There are no significant masses, abnormal calcifications, or other ?? abnormalities. ? MM/MM tomosynthesis screening BI ?? IMPRESSION: [...] due date for their next mammogram. ? Electronically signed by: ??Rosy Talavera DO ??07/24/2024 12:42 PM EST ? Dictated By: ?Rosy Talavera DO ? Signed By: ?<Electronically signed by Rosy Talavera, DO in OV> ? 07/24/24 1242 ? DD/ 1345 ? TD/TT: 07/14/24 1400 ? Setter Induction Heating Equipment: ? Procedure Note Donyaryter, Image - 07/24/2024 [place] [facility] [address] [place] [address] Mammography Report Signed Patient: Fabian Cuevas#: [id number] : 2Acct:[id number] Age/Sex: 74 / FADM Date: 07/14/24 Loc: [facility] Attending Dr: Amy Gilman MD Ordering Physician: Amy Gilman MDResults: 2Benign F indings Date of Service: 07/14/24Follow Up: 1 Year From Orig inal Mammogram Procedure(s): MM tomosynthesis screening BI Accession Number(s): [id number] cc: Amy Gilman MD EXAMINATION: MM SCREENING DIGITAL BREAST TOMOSYNTHESIS, BILATERAL CLINICAL INFORMATION: Screening. Asymptomatic. COMPARISON: Mammography: Comparison is made with available priors TECHNIQUE: Digital breast mammography with tomosynthesis is performed in both the craniocaudal and mediolateral oblique views along with computer-aided detection (CAD). FINDINGS: There are scattered areas of fibroglandular density (ACR BI-RADS breast composition Category b). Bilateral secretory calcifications are benign. There are no significant masses, abnormal calcifications, or other abnormalities. MM/MM tomosynthesis screening BI IMPRESSION: No mammographic evidence of malignancy. ASSESSMENT: BI-RADS BI-RADS 2 - Benign Findings RECOMMENDATION: Routine annual mammography screening. 1 year F/U This examination should not preclude the clinical evaluation of a suspicious palpable abnormality. This patient's information was entered into a reminder system with a target due date for their next mammogram. Electronically signed by: Rosy Talavera DO 07/24/2024 12:42 PM EST Dictated By: Rosy Talavera DO Signed By: <Electronically signed by Rosy Talavera DO in OV> 07/24/24 1242 DD/ 1345 TD/TT: 07/14/24 1400 [employer]ter [employer]duction Heating Equipment: us Amy Gilman MD IMG BI PROCEDURES Edited Result - Final * (ABNORMAL) POCT HGB A1C (06/15/2024 11:27 [...] Result Negative Negative 10/21/19 6:12 PM EDT [facility] (CLIA #:[id number]) Comment: NEGATIVE TEST RESULT. A negative Cologuard [...] (Mayito Curry al, N Engl J Med 2014;370(14):1286- 1297) The normal value (reference range) for this assay is negative. COLOGUARD RE-SCREENING RECOMMENDATION: Periodic colorectal cancer screening is an important part of preventive healthcare for asymptomatic individuals at average risk for colorectal cancer. ??Following a negative Cologuard result, the [place] [employer] and U.S. Multi-Society Task Force screening guidelines recommend a Cologuard re-screening interval of 3 years. References: [place] [employer] Guideline for Colorectal Cancer Screening: https://www.cancer.org/cancer/bousm-lzgpem-vvoqhp/klhqecqev-fbyqecrfe-wqkqrqh/ac s-rec ommendations.html.; Darryn DK, Flaquito SMART, Shaneka WatsonK, Colorectal Cancer Screening: Recommendations for Physicians and Patients from the U.S. Multi-Society Task Force on Colorectal Cancer Screening , Am J Gastroenterology 2017; 112:0231-7325. TEST DESCRIPTION: Composite algorithmic analysis of stool [...] Holland. et al, N Engl J Med 2014;370(14):7447-0425.) Cologuard may produce a false negative or false positive result (no colorectal cancer or precancerous polyp present at colonoscopy follow up). A negative Cologuard test result does not guarantee the absence of CRC or advanced adenoma (pre-cancer). The current Cologuard screening interval is every 3 years. ([place] [employer] and U.S. Multi-Society Task Force). Cologuard performance data in a 10,000 patient pivotal study using colonoscopy as the reference method can be accessed at the following location: www.PhoneFusion/results. Additional description of the Cologuard test process, warnings and precautions can be found at www.Bartermill.comrd.Aventeon. Stool specimen (specimen) 10/13/2023 6:30 AM EDT 10/14/2023 10:49 AM EDT us Amy Gilman MD LAB MOLECULAR DIAGNOSTICS ORDERA BLES Final Result [facility] (CLIA #:[id number]) [address] [place] [address], * (ABNORMAL) Lipid Panel, Standard (07/28/2023 9:03 AM EST) Triglycerides 270(H) <150 mg/dL [facility] Comment:Desirable Triglyceri de: less than 150 mg/dLBorderline High Triglyceride 150-199 mg/dLHigh Triglyceride: 200-499 mg/dLVery High Triglyceride: greater than or equal to 5OO mg/dL Cholesterol 173 <200 mg/dL [facility] Comment:Desirable Cholestero l: less than 200 mg/dLBorderline High Cholesterol: 200-239 mg/dLHigh Cholesterol: greater than 239 mg/dL LDL Cholesterol Calculated 89 <100 mg/dL [facility] Comment:Desirable LDL: less than 100 mg/dLNear Optimal/Above Optimal LDL: 110- 129 mg/dLBorderline High LDL: 130-159 mg/dLHigh LDL: 160-189 mg/dLVery High LDL: greater than or equal to 190 mg/dL HDL Cholesterol 30(L) >40 mg/dL [facility] Comment:Desirable HDL: great er than 40 mg/dL Note: This HDL assay may give artificially low results in patients with liver disease. 07/28/2023 9:03 AM EST 07/28/2023 11:34 AM EST us Amy Gilman MD LAB BLOOD ORDERABLES Final Resul t [facility] [address] [place] [address] [phone] from Last 3 Months or Most Recently Relevant to Health Maintenance Insurance [facility] Care Teams Harm Reduction Worker Relationship Specialty Start Date End Date Amy Gilman MD [address] [place] [address] PCP - General Family Medicine 06/16/18 Joshua Mims, PharmD [address] [place] [address] Pharmacist Internal Medicine 05/05/23
--- OUTSIDE RECORDS SUMMARY | 2024-07-28 13:21 | XMS_ITS | Encounter Summary ---
Author Organization [employer] [facility] Address [address] [place] [address] [address] [place] [address] Care Team Providers Care Medical Management Specialist Name Role Phone Amy Gilman MD Primary Care Provider [phone] Joshua Mims PharmD Unavailable [phone] Encounter Details Date Type Department Care Team (Late st Contact Info) Description 06/13/2022 Abstract [facility] MEDICINE [address] [place] [phone] Amy Gilman MD [address] [place] [phone] Social History Tobacco Use Types Packs/Day Years [...] Description 08/13/2024 10:30 AM EST Medication Management [facility]INE [address] [place] [phone] Joshua Mims, PharmD [address] [place] [address] 10/21/2024 3:00 PM EDT Office Visit [facility] OPTOMETRY [address] [place] [address] Kaia Mann, OD [address] [place] [address] documented as of this encounter Visit Diagnoses Not on filedocumented in this encounter Care Teams Medical Management Specialist Relationship Specialty Start Date End Date Amy Gilman MD [address] [place] [address] PCP - General Family Medicine 06/16/18 Joshua Mims, MerrickD [address] [place] [address] Pharmacist Internal Medicine 05/05/23 documented as of this encounter
--- OUTSIDE RECORDS SUMMARY | 2024-07-28 13:21 | XMS_ITS | Encounter Summary ---
Author Organization [employer] Address [address] [facility] 7t [place] [address] Care Team Providers Care Lobster Catcher Name Role Phone Amy Gilman MD Primary Care Provider [phone] Joshua Mims PharmD Unavailable [phone] Reason for Visit * Reason Onset Date Comments Call Back Request 04/23/2024 Encounter Details Date Type Department Care Team ([facility] st Contact Info) Description 04/23/2024 Telephone [facility] MEDICINE [address] [place], [place] [phone] Amy Gilman MD [address] [place] [address] Call Back Request Social History Tobacco Use [...] return call today, 04/26/2024, twice to number [phone]. There was no answer and no option to leave a voicemail for both attempts.. * Telephone Encounter - Shelton Lyle - 04/23/2024 2:10 PM EST Pt requesting call back from Joshua documented in this encounter Plan of Treatment Upcoming Encounters Date Type Department Care Team (Late st Contact Info) Description 08/13/2024 10:30 AM EST Medication Management [facility] MEDICINE [address] [place] [address] Joshua Mims, Tana [address] [place] [address] 10/21/2024 3:00 PM EDT Office Visit [facility] OPTOMETRY [address] [place] [address] Kaia Mann, OD [address] [place] [address] documented as of this encounter Goals Goal Patient Goal Type Associated Problems Recent Progress Patient-Stated? Author Blood Pressure < 140/90 Blood Pressure 170/106(07/16 9:23 AM EST) No Joshua Mims, Tana Hemoglobin A1c < 7 Result Component 6.5( 11:27 AM EST) No Joshua Mims PharmD Note: Age + HTN, CKD, Hx Stroke make more relaxed goal (8%) reasonable documented as of this encounter Visit Diagnoses Not on filedocumented in this encounter Additional Health Concerns Assessment Noted Time PHQ-9 Depression Total Score: 0 12/25/19 23 1:34 PM EDT documented as of this encounter Care Teams Lobster Catcher Relationship Specialty Start Date End Date Amy Gilman MD [address] [place] [address] PCP - General Family Medicine 06/16/18 Joshua Mims, Tana [address] [place] [address] Pharmacist Internal Medicine 05/05/23 documented as of this encounter
--- OUTSIDE RECORDS SUMMARY | 2024-07-28 13:21 | XMS_ITS | Encounter Summary ---
Author Organization [employer] [facility] Address [address] [place] [address] [address] [address] Care Team Providers Care Frame Stylist Name Role Phone Amy Gilman MD Primary Care Provider [phone] Joshua Mims PharmD Unavailable [phone] Reason for Visit * Reason Comments Med Refill Encounter Details Date Type Department Care Team (Late Contact Info) Description 11/17/2022 Refill [facility] MED[facility]INE [address] [place] [address] Ema Bradford MD [address] [place] [address] Social History Tobacco Use Types Packs/Day Years [...] Department Care Team (Late Contact Info) Description 08/13/2024 10:30 AM EST Medication Management [facility] MEDICINE [address] [place] [address] Joshua Mims, PharmD [address] [place] [address] 10/21/2024 3:00 PM EDT Office Visit [facility] OPTOMETRY [address] [place], [place] [phone] Kaia Mann, OD [address] [place] [address] documented as of this encounter Visit Diagnoses Not on filedocumented in this encounter Care Teams Frame Stylist Relationship Specialty Start Date End Date Amy Gilman MD [address] [place] [address] [phone] PCP - General Family Medicine 06/16/18 Joshua Mims, MerrickD [address] [place] [address] [phone] Pharmacist Internal Medicine 05/05/23 documented as of this encounter
--- OUTSIDE RECORDS SUMMARY | 2024-07-28 13:21 | XMS_ITS | Encounter Summary ---
Author Organization [employer] Address [address] [facility] 7t [place] [address] Care Team Providers Care Aco Coordinator Name Role Phone Amy Gilman MD Primary Care Provider [phone] Joshua Mims PharmD Unavailable [phone] Reason for Visit * Reason Comments Med Refill Encounter Details Date Type Department Care Team ([facility] st Contact Info) Description 03/11/2024 Refill [facility] MED[facility]INE [address] [place], [place] [phone] Joshua Mims, PharmD [address] [place], [place] [phone] Type 2 diabetes mellitus with stage 3b chronic kidney disease, with long-term current use of insulin ([facility]) Social History Tobacco Use Types Packs/Day Years [...] Description 08/13/2024 10:30 AM EST Medication Management [facility] MEDICINE [address] [place] [address] Joshua Mims PharmD [address] [place] [address] 10/21/2024 3:00 PM EDT Office Visit [facility] OPTOMETRY [address] [place] [address] Kaia Mann, OD [address] [place] [address] documented as of this encounter Goals Goal [...] disease, with long-term current use of insulin ([facility]) documented in this encounter Additional Health Concerns Assessment Noted Time PHQ-9 Depression Total Score: 0 12/25/19 23 1:34 PM EDT documented as of this encounter Care Teams Aco Coordinator Relationship Specialty Start Date End Date Amy Gilman MD [address] [place] [address] PCP - General Family Medicine 06/16/18 Joshua Mims, MerrickD [address] [place] [address] Pharmacist Internal Medicine 05/05/23 documented as of this encounter
--- OUTSIDE RECORDS SUMMARY | 2024-07-28 13:21 | XMS_ITS | Encounter Summary ---
Author Organization [employer] Address [address] [facility] 7t [place] [address] Care Team Providers Care Elevator Runner Name Role Phone Amy Gilman MD Primary Care Provider [phone] Joshua Mims PharmD Unavailable [phone] Encounter Details Date Type Department Care Team (Late st Contact Info) Description 07/14/2024 Orders Only [facility] MEDICINE [address] [place], [place] [phone] Amy Gilman MD [address] [place], [place] [phone] Social History Tobacco Use Types Packs/Day Years Used Date Smoking Tobacco: Never Passive Smoke Exposure: Never Smokeless Tobacco: Never Alcohol Use Standard Drinks/Week Comments Never 0 (1 standard drink = 0.6 oz pur e alcohol) Depression Answer Date Recorded Patient Health Questionnaire-9 Score 0 12/24/2022 Housing Stability Answer Date Recorded What is your housing situation today? I have elaroderick cadena 03/16/[address] you [...] Description 08/13/2024 10:30 AM EST Medication Management [facility] MEDICINE [address] [place] [address] Joshua Mims PharmD [address] [place] [address] 10/21/2024 3:00 PM EDT Office Visit [facility] OPTOMETRY [address] [place] [address] Kaia Mann, OD [address] [place] [address] documented as of this encounter Goals Goal [...] Procedure Name Priority Date/Time Associated Diagnosis Comments BI MAMMOGRAM SCREENING TOMOSYNTHESIS BILATERAL Routine 07/14/2024 1:45 PM EST documented in this encounter Results * BI Mammogram Screening Tomosynthesis Bilateral (07/14/2024 1:45 PM EST) Anatomical Region Laterality Modality Breast Bilateral Mammography 07/14/2024 1:45 PM EST Narrative 07/24/2024 12:45 PM EST ? [facility] ? [address] ?[place] [address] ? Mammography Report ? Signed ? Patient: Mason,Loraine ?MR#: [id number] ? : 1950 ?Acct:[id number] ? Age/Sex: 74 / F ?ADM Date: 07/14/24 ? Loc: HO.MAMMO ? Attending Dr: Amy Gilman MD ? Ordering Physician: Amy Gilman MD ?Results: 2Benign F ?? indings ? Date of Service: 07/14/24 ?Follow Up: 1 Year From Orig ?? inal Mammogram ? Procedure(s): MM tomosynthesis screening BI ?? Accession Number(s): [id number] ? cc: Amy Gilman MD ? EXAMINATION: [...] DD/ 1345 ? TD/TT: 07/14/24 1400 ? Head Of Marketing Adometry: ? Procedure Note Donyaryter, Image - 07/24/2024 [place] [facility] [address] [place] [address] Mammography Report Signed Patient: Fabian Cuevas#: [id number] : 2Acct:[id number] Age/Sex: 74 / FADM Date: 07/14/24 Loc: [facility] Attending Dr: Amy Gilman MD Ordering Physician: Amy Gilman MDResults: 2Benign F indings Date of Service: 07/14/24Follow Up: 1 Year From Orig inal Mammogram Procedure(s): MM tomosynthesis screening BI Accession Number(s): [id number] cc: Amy Gilman MD EXAMINATION: MM SCREENING [...] by: Rosy Talavera DO 07/24/2024 12:42 PM [facility] Dictated By: Rosy Talavera DO Signed By: <Electronically signed by Rosy Talavera DO in OV> 07/24/24 1242 DD/ 1345 TD/TT: 07/14/24 1400 Head Of Marketing Adometry: Amy Gilman MD IMG BI PROCEDURES Edited Result - Final documented in this encounter Visit Diagnoses Not on filedocumented in this encounter Additional Health Concerns Assessment Noted Time PHQ-9 Depression Total Score: 0 12/25/19 23 1:34 PM EDT documented as of this encounter Care Teams Elevator Runner Relationship Specialty Start Date End Date Amy Gilman MD [address] [place] [address] PCP - General Family Medicine 06/16/18 Joshua Mims, MerrickD [address] [place] [address] Pharmacist Internal Medicine 05/05/23 documented as of this encounter
--- OUTSIDE RECORDS SUMMARY | 2024-07-28 13:21 | XMS_ITS | Encounter Summary ---
Author Organization [facility] [facility] Address [address] [facility] [address] [address] Care Team Providers Care Supervisor [employer] Name Role Phone Amy Gilman MD Primary Care Provider [phone] Joshua Mims PharmD Unavailable [phone] Reason for Referral * Consultation (Routine) - Authorized Specialty Diagnoses / Procedures Referred By Oscar shook Referred To Contact Pharmacy Diagnoses Type 2 diabetes mellitus with stage 3b chronic kidney disease, with long-term current use of insulin (CMS/HCC) Essential hypertension Moderate persistent asthma without complication Amy Gilman MD [address] [place] [address] Phone: tel: fax: Referral ID Status Reason Start Date Expiration Date Visits Requested Visits Authorized [id number] Authorized Consult and Treat 04/27/2024 04/27/2025 6 6 Encounter Details Date Type Department Care Team (Late st Contact Info) Description 04/27/2024 Orders Only [facility] MEDICINE [address] [place] [phone] Amy Gilman MD [address] [place] [address] Type 2 diabetes mellitus with stage 3b [...] Description 08/13/2024 10:30 AM EST Medication Management [facility] MEDICINE [address] [place] [address] Jsohua Mims, PharmD [address] [place] [address] 10/21/2024 3:00 PM EDT Office Visit [facility] OPTOMETRY [address] [place] [address] Kaia Mann, OD [address] [place] [address] Scheduled Referrals Name Type Priority Associated Diagnoses Orde r Schedule Referral to Pharmacy CDTM Outpatient Referral Routine Type 2 diabetes mellitus with stage 3b chronic kidney disease, with long-term current use of insulin ([facility]) Essential hypertension Moderate persistent asthma without complication [...] disease, with long-term current use of insulin ([facility])- Primary Essential hypertension Unspecified essential hypertension Moderate persistent asthma without complication documented in this encounter Additional Health Concerns Assessment Noted Time PHQ-9 Depression Total Score: 0 12/25/19 23 1:34 PM EDT documented as of this encounter Care Teams Supervisor [employer] Relationship Specialty Start Date End Date Amy Gilman MD [address] [place] [address] PCP - General Family Medicine 06/16/18 Joshua Mims PharmD [address] [place] [address] Pharmacist Internal Medicine 05/05/23 documented as of this encounter
== END 2024-07-28 11:27 | disposition home or self-care (01) ==
LOC: HO.MAMMO 11:26
PROVIDERS: PCP Family Medicine; Visit Provider Family Medicine
DX: Z13.820 Encounter for screening for osteoporosis (principal); M85.852 Other specified disorders of bone density and structure, left thigh
CPT/HCPCS: 77080

== ENCOUNTER → 2024-07-28 11:30 | Outpatient (BNV) | payer OTHER, SELFPAY | PROVIDERS: PCP Family Medicine; Visit Provider Radiology Diagnostic Radiology | DX: E28.39 Other primary ovarian failure (principal) | CPT/HCPCS: 77080 ==

== ENCOUNTER 2024-10-07 09:05 | Outpatient (REF) | payer OTHER, SELFPAY ==
[2024-10-07 11:13] LABS: MANUAL DIFF FLAG NO
[2024-10-07 11:27] LABS: Basophils Absolute Auto 0.1 X10*3/uL (0.0-0.2); Basophils Percent Auto 0.9 % (0-2); Eosinophils Absolute Auto 0.2 X10*3/uL (0.0-0.4); Eosinophils Percent Auto 2.8 % (0-4); Hematocrit 31.1 % (37.0-47.0); Hemoglobin 10.4 g/dl (12.0-16.0); Imm Gran Abs Auto 0.02 X10*3/uL (0.00-0.03); Imm Gran Pct Auto 0.3 % (0.0-0.4); Immature Retic Fraction 6.6 % (3.0-15.9); Lymphocytes Absolute Auto 1.7 X10*3/uL (1.2-4.9); Lymphocytes Percent Auto 27.1 % (20-40); Mean Corpuscular HGB Conc 33.4 g/dl (31.0-35.0); Mean Corpuscular Hemoglobin 29.6 pg (27.0-33.0); Mean Corpuscular Volume 88.6 fL (80.0-98.0); Mean Platelet Volume 11.6 fL (9.4-12.3); Monocytes Absolute Auto 0.5 X10*3/uL (0.1-1.2); Monocytes Percent Auto 7.8 % (2-11); Neutrophils Absolute Auto 3.9 x10*3/uL (2.0-8.3); Neutrophils Percent Auto 61.1 % (45-73); Platelet Count 223 X10*3/uL (160-400); Red Blood Count 3.51 X10*6/uL (4.20-5.50); Red Cell Distribution Width 12.2 % (11.0-16.0); Retic HGB Equivalent 33.2 pg (30.0-35.0); Reticulocyte Percent 1.9 % (0.5-1.8); Reticulocytes Absolute 0.066 X10*6/uL (0.026-0.095); White Blood Count 6.4 X10*3/uL (4.8-10.8)
[2024-10-07 11:56] LABS: Alanine Aminotransferase 28 U/L (0-31); Albumin Level 3.9 g/dL (3.5-5.0); Alkaline Phosphatase 76 U/L (39-117); Anion Gap 10 (12-20); Aspartate Amino Transferase 24 U/L (5-31); Bilirubin Total 0.4 mg/dL (0.0-1.0); Blood Urea Nitrogen 34 mg/dL (9-16); Calcium 9.3 mg/dL (8.4-10.2); Carbon Dioxide 26 mmol/L (22-29); Chloride 105 mmol/L (96-108); Cholesterol 207 mg/dL (<200); Estimated Glomerular Filt Rate 33; Glucose Random 144 mg/dL (60-115); HDL Cholesterol 37 mg/dL (>40); Iron 86 mcg/dL (30-160); LDL Cholesterol Calculated 116 mg/dL (<100); Percent Iron Saturation 38 % (15-50); Sodium 136 mmol/L (135-145); Total Iron Binding Capacity 225 mcg/dL (228-428); Total Protein 7.5 g/dL (6.5-8.0); Triglycerides 270 mg/dL (<150); Unsaturated Iron Binding 139 ug/dL
[2024-10-07 12:00] LABS: Ferritin 411 ng/mL (10-250)
[2024-10-07 13:17] LABS: Reflex LDLD? No
== END 2024-10-07 09:06 | disposition home or self-care (01) ==
LOC: HO.HHCL 09:05
PROVIDERS: Visit Provider Family Medicine
DX: R42 Dizziness and giddiness (principal); E78.5 Hyperlipidemia, unspecified; I10 Essential (primary) hypertension
CPT/HCPCS: 36415; 80053; 80061; 82728; 83540; 85025; 85045

== ENCOUNTER 2024-12-20 09:53 | Outpatient (REF) | payer OTHER, SELFPAY ==
--- NOTE | ~2024-12-20 | XR_ITS ---
EXAMINATION: XR FOOT, RIGHT CLINICAL INFORMATION: pain x8 days, unable to recall injury COMPARISON: None available. TECHNIQUE: AP, lateral, and oblique views of the right foot. FINDINGS: No fracture, dislocation, or suspicious bone lesion. Normal bone mineralization. Normal alignment. Joint spaces are preserved. No significant arthropathy. Normal plantar arch. There is a small to moderate-sized plantar calcaneal spur, and a small dorsal spur. Soft tissues appear normal. XR/XR foot RT min 3V IMPRESSION: 1. No acute findings of the right foot. Electronically signed by: Jaden Grant MD 12/20/2024 10:29 AM EDT
--- OUTSIDE RECORDS SUMMARY | 2024-12-20 10:27 | XMS_ITS | Clinical Summary ---
Author Organization [facility] Address [address] [facility] [address] [place] [address] Phone Care Team Providers Care Weaver Needle Loom Name Role Phone Amy Gilman MD Primary Care Provider [phone] Allergies Active Allergy Reactions Criticality Noted Date [...] by mouth 2 (two) times a day 021 Active traMADol (ULTRAM) 50 MG tablet TAKE 1 TABLET BY MOUTH EVERY 8 HOURS NEEDED FOR PAIN 021 Active Canagliflozin (Invokana) 100 MG tabletIndications :Renal disorder due to type 2 diabetes mellitus <Diabetic nephropathy> (HCC),Persistent proteinuria,Stage 3a chronic kidney disease (HCC),Renal osteodystrophy Take 1 tablet by mouth 1 (one) time each day 60 tablet 2 021 Active Acetaminophen Extra Strength 500 MG tablet TAKE 2 TABLETS BY MOUTH EVERY 8 HOURS NEEDED Active cyclobenzaprine (FLEXERIL) 10 MG tablet Take 10 mg by mouth if needed Active Lantus SoloStar 100 UNIT/ML injection INJECT 30 UNITS SUBCUTANEOUSLY EVERY EVENING @ 8 PM Active HumaLOG KWIKPEN 100 UNIT/ML solution pen-injector INJECT 17 UNITS WITH BREAKFAST, 14 UNITS WITH LUNCH, & 10 UNITS WITH DINNER. INCREASE 1-2 EXTRA UNITS FOR HIGH-CARB MEAL, DECREASE BY 1-2 UNITS FOR LOW CARB MEAL. DECREASE 1 UNITS IF 2HR POSTPRANDIAL BLOOD SUGAR <70 Active PenTips 32G X 4 MM misc USE TOPICALLY INJECT INSULIN FOUR TIMES DAILY Active doxazosin (CARDURA) 4 MG tablet TAKE 1 AND 1/2 TABLETS BY MOUTH TWICE DAILY IN THE MORNING AND IN THE EVENING 270 tablet 3 023 Active Ozempic, 0.25 or 0.5 MG/DOSE, 2 MG/3ML solution pen-injector Inject 0.25 mg under the skin 1 (one) time per week Active sodium bicarbonate 650 MG tablet TAKE 1/2 TABLET BY MOUTH THREE TIMES DAILY IN THE MORNING, EVENING AND BEDTIME 135 tablet 3 024 Active lisinopril 20 MG tabletIndications :Stage 3b chronic kidney disease (HCC),Renal disorder due to type 2 diabetes mellitus <Diabetic nephropathy> (HCC),Essential hypertension Take 1 tablet (20 mg total) by mouth 1 (one) time each day 90 tablet 3 025 2025 Active gabapentin (NEURONTIN) 100 MG capsule TAKE 1 CAPSULE BY MOUTH TWICE DAILY IN THE MORNING AND IN THE EVENING 180 capsule 2 025 Active gabapentin (NEURONTIN) 100 MG capsule TAKE 1 CAPSULE BY MOUTH TWICE DAILY IN THE MORNING AND IN THE EVENING 180 capsule 2 024 2024 Discontinued Active Problems Problem Noted Date Diagnosed Date Chronic kidney disease, stage 4 (severe) 024 Osteopenia 06/16/2022 Overview (10/21/2022): Last Assessment & Plan: -Last DEXA scan on 11/06/18 The lowest T-score -1.5 in femoral neck -Repeat DEXA scan -Bisphosphonate is contraindicated due to her CKD Tricuspid valve regurgitation 06/13/2022 Overview (10/21/2022): Last Assessment & Plan: -Last echo on 01/29/22 LVEF 60-65%, [id number] tricuspid regurgitation, mild pulmonary hypertension Stage 3b [...] which was discontinued by pt (prescribed by petroleum transport driver) - Continue diligent SMBG, current medication, and [...] Encounters Date Type Department Care Team Description 12/07/2024 Refill [facility] [address] [place] [address] Anand Sagastume MD 11/10/2024 2:00 PM EDT Office Visit [facility] [address] [place] [address] Anand Sagastume MD Stage 3b chronic kidney disease (HCC) (Primary Dx); Renal disorder due to type 2 diabetes mellitus <Diabetic nephropathy> (HCC); Hyperkalemia from Last 3 Months Immunizations Immunization Administration Dates Next Due Hepatitis B 09/20/2014,10/26/2013,06/30/2013 Influenza Split 04/02/2013,03/26/2012 Influenza Split High Dose Pr eservative Free IM 02/25/2024,05/03/2019,04/28/2018 Influenza, Quadrivalent, Pre servative Free 06/17/2023 Influenza, Quadrivalent, Wit h Preservative 06/13/2022,05/14/2017,04/10/2016,04/12 Influenza, Unspecified 07/11/2014,2010,02/06/2010,02/27,04/12/2008,03/11/2007,04/18/2006 ,05/08/2005,06/18/2002 Moderna SARS-COV-2 10/23/2021, 1,09/29/2020,09/01 Pneumococcal Conjugate 13-Valent 05/14/2017 Pneumococcal Polysaccharide 05/03/2019, 9,03/14/2003 Shingrix 12/25/2021,10/23/2021 Td 05/17/2010,04/01/2000 Tdap 06/17/2023,03/26/2012 Zoster 12/25/2021,10/23/2021,08/16/2014 Family History Medical History Relation Comments Cancer [...] Sign Reading Time Taken Comments Blood Pressure 100/60 11/10/2024 2:14 PM EDT Pulse 74 11/10/2024 2:14 PM EDT Temperature - - Respiratory Rate - - Oxygen Saturation 98% 11/10/2024 2:14 PM EDT Inhaled Oxygen Concentration - - Weight 72.6 kg (160 lb) 11/10/2024 2:14 PM EDT Height 157.5 cm (5' 2 ) 07/13/2020 12:00 PM EST Body Mass Index 29.26 07/13/2020 12:00 PM EST Plan of Treatment Upcoming Encounters Date Type Department Care Team (Late st Contact Info) Description 08/08/2025 1:00 PM EST Office [facility] [address] [place] [address] Anand Sagastume MD [address] [facility] [address] [place] [address] Health Maintenance Due Date Last Done Comments Breast Cancer Screening 1950 Colorectal Cancer Screening: Annual FOBT 2001 Colorectal Cancer Screening: Colonoscopy 2001 Colorectal Cancer Screening: Sigmoidoscopy 2001 Diabetes: Ophthalmology Exam 07/17/2020 Diabetes: Pedal Pulse Checked 07/17/2020 Diabetes: Sensory Foot Exam 07/17/2020 Diabetes: Visual Foot Exam 07/17/2020 Diabetes: Hemoglobin A1C 01/10/2025 025, 06/15/2024, 09/25/2023 Influenza Vaccine (#1) 2025 , 06/17/2023, 06/13/2022, Additional history exists Hepatitis B Vaccine Aged Out 09/20/2014, 10/26/2013, 06/30/2013 No longer eligible based on patient's age to complete this topic Pneumococcal Vaccine: 50+ Years Completed 05/03/2019, 05/14/2017, 08/10/2008, Additional history exists Pneumococcal Vaccine: Peds (0 to 5 Years) and At-Risk Patients (6 to 49 Years) Discontinued 05/03/2019, 05/14/2017, 08/10/2008, Additional history exists Insurance [address] [place] [id number] [facility] MCR ([id number]) [facility] ([id number]) [place] [id number] Care Teams Weaver Needle Loom Relationship Specialty Start Date End Date Amy Gilman MD [address] [place] [phone] PCP - General 06/26/20
== END 2024-12-20 09:54 | disposition home or self-care (01) ==
LOC: HO.HHCX 09:53
PROVIDERS: Visit Provider Student in an Organized Health Care Education/Training Program
DX: M79.671 Pain in right foot (principal)
CPT/HCPCS: 73630

== ENCOUNTER → 2024-12-20 09:54 | Outpatient (BNV) | payer OTHER, SELFPAY | PROVIDERS: Visit Provider Radiology Diagnostic Radiology | DX: M79.671 Pain in right foot (principal) | CPT/HCPCS: 73630 ==

== ENCOUNTER 2025-04-11 08:35 | Outpatient (REF) | payer OTHER, SELFPAY ==
--- OUTSIDE RECORDS SUMMARY | 2025-04-11 08:59 | XMS_ITS | Encounter Summary ---
Author Organization [employer] Address [address] [facility] 7t [place] [address] Care Team Providers Care Clay Artist Name Role Phone Amy Gilman MD Primary Care Provider [phone] Joshua Mims PharmD Unavailable [phone] Reason for Visit * Reason Comments Med Refill Encounter Details Date Type Department Care Team ([facility] st Contact Info) Description 03/11/2024 Refill [facility] MEDICINE [address] [place], [place] [phone] Joshua Mims, PharmD [address] [place], [place] [phone] Type 2 diabetes mellitus with stage 3b chronic kidney disease, with long-term current use of insulin ([facility]) Social History Tobacco Use Types Packs/Day Years [...] Care Team (Late st Contact Info) Description 04/14/2025 9:30 AM EDT Medication Management [facility] MEDICINE [address] [place] [address] Joshua Mims PharmD [address] [place], [place] [phone] documented as of this encounter Goals Goal Patient Goal Type Associated Problems Recent Progress Patient-Stated? Author Blood Pressure < 140/90 Blood Pressure 122/70(2024 10:29 AM EDT) No Joshua Mims PharmD Hemoglobin A1c < 7 Result Component 6.9( 11:40 AM EDT) No Joshua Mims PharmD Note: Age + HTN, CKD, Hx Stroke make more relaxed goal (8%) reasonable documented as of this encounter Visit Diagnoses Diagnosis Type 2 diabetes mellitus with stage 3b chronic kidney disease, with long-term current use of insulin (HCC) documented in this encounter Additional Health Concerns Assessment Noted Time PHQ-9 Depression Total Score: 0 12/25/19 23 1:34 PM EDT documented as of this encounter Care Teams Clay Artist Relationship Specialty Start Date End Date Amy Gilman MD [address] [place] [address] PCP - General Family Medicine 06/16/18 Joshua Mims PharmD [address] [place] [address] Pharmacist Internal Medicine 05/05/23 documented as of this encounter
--- OUTSIDE RECORDS SUMMARY | 2025-04-11 08:59 | XMS_ITS | Clinical Summary ---
Author Organization [facility] Address [address] [place] [address] Phone Care Team Providers Care Purchase Order Checker Name Role Phone Pcp, Unknown Primary Care Provider Unavailabl e Allergies No known active allergies Medications No known medications Active Problems No known active problems Social History Tobacco Use Types Packs/Day Years Used Date Smoking Tobacco: Never Smokeless Tobacco: Never Alcohol Use Standard Drinks/Week Comments Never 0 (1 standard drink = 0.6 oz pur e alcohol) Education Answer Date Recorded Are you interested in more education? Not on sylvia e 10/11/2022 Are you concerned about learning? Not on file 10/11/2022 No 10/11/2022 No 10/11/2022 Digital Access Answer Date Recorded No 11/12/2022 No 11/12/2022 Reliable internet access at home? Not on file 11/12/2022 Device with a working camera? Not on file Comments Unknown Sex and Gender Information Value Date Recorded Sex Assigned at Not on file Legal Sex Female 11:48 AM EST Gender Identity Not on file Sexual Orientation Not on file Last Filed Vital Signs Vital Sign Reading Time Taken Comments Blood Pressure - - Pulse - - Temperature - - Respiratory Rate - - Oxygen Saturation - - Inhaled Oxygen Concentration - - Weight 81.6 kg (180 lb) 05/25/2020 12:26 PM EST Height 154.9 cm (5' 1 ) 05/25/2020 12:26 PM EST Body Mass Index 34.01 05/25/2020 12:26 PM EST Plan of Treatment Health Maintenance Due Date Last Done Comments Adult Td,Tdap Booster 1952 LIPID PANEL 1952 DEPRESSION SCREENING 1964 HEPATITIS C SCREENING 1970 MAMMOGRAM 1992 COLOGUARD 1997 COLONOSCOPY 1997 COLORECTAL CANCER SCREENING 1997 FIT TEST 1997 FOBT 1997 SIGMOIDOSCOPY 1997 VIRTUAL COLONOSCOPY 1997 PNEUMOCOCCAL VACCINES (50+ y ears) (1 of 1 - PCV) 2002 ZOSTER VACCINES (1 of 2) 2002 OSTEOPOROSIS SCREENING INITI AL (ONE-TIME) 2017 INFLUENZA VACCINE (#1) 2025 COVID-19 VACCINE (1 - 2024-2 6 season) 2025 RSV VACCINE (1 - 1-dose 75+ series) 2027 SMOKING STATUS SCREENING (On ce After 26 Yrs) Completed 05/25/2020 HEPATITIS A VACCINES Aged Out No long er eligible based on patient's age to complete this topic HIB VACCINES Aged Out No longer eligi ble based on patient's age to complete this topic MENINGOCOCCAL VACCINES (ACWY) Aged Out No longer eligible based on patient's age to complete this topic MENINGOCOCCAL VACCINES (B) Aged Out N o longer eligible based on patient's age to complete this topic Medical Devices Not on file Insurance MEDICARE PART A & B [facility] MEDICARE PART A & [place] [facility] [place] PART A & B [facility] MEDICARE PART A & B Member Subscriber Plan / Payer (Ef fective 2017-) Name:Justin Cuevas Member ID:[id number] Relation to Subscriber:Self Name:Justin Cuevas Subscriber ID:[id number] Payer ID:[id number] Group ID:Not on file Type:Medicare Address: [employer] [address] [place] [id number] [facility] Care Teams Purchase Order Checker Relationship Specialty Start Date End Date Pcp, Unknown PCP - General 05/25/20 Additional Source Comments The information contained in this document represents components of the legal health record. It is not the complete legal health record.[facility]
--- OUTSIDE RECORDS SUMMARY | 2025-04-11 08:59 | XMS_ITS | Encounter Summary ---
Author Organization [employer] Address [address] [place] [address] [address] [place] [address] Care Team Providers Care Charter Coordinator Name Role Phone Amy Gilman MD Primary Care Provider [phone] Joshua Mims PharmD Unavailable [phone] Encounter Details Date Type Department Care Team (Late st Contact Info) Description 06/13/2022 Abstract [facility] MEDICINE [address] [place] [phone] Amy Gilman MD [address] [place] [address] Social History Tobacco Use Types Packs/Day Years [...] Description 04/14/2025 9:30 AM EDT Medication Management [facility] MEDICINE [address] [place] [phone] Joshua Mims, PharmD [address] [place] [address] documented as of this encounter Visit Diagnoses Not on filedocumented in this encounter Care Teams Charter Coordinator Relationship Specialty Start Date End Date Amy Gilman MD [address] [place] [address] PCP - General Family Medicine 06/16/18 Joshua Mims PharmD [address] [place] [address] Pharmacist Internal Medicine 05/05/23 documented as of this encounter
--- OUTSIDE RECORDS SUMMARY | 2025-04-11 08:59 | XMS_ITS | Clinical Summary ---
Author Organization [facility] Address [address] [facility] [address] [place] [address] Phone Care Team Providers Care Propeller Inspector Name Role Phone Amy Gilman MD Primary Care Provider Allergies Active Allergy Reactions Criticality Noted Date [...] disorder due to type 2 diabetes mellitus <Unspecified DM Medication; Diabetic nephropathy> (HCC),Persistent proteinuria,Stage 3a chronic kidney disease [...] INSULIN FOUR TIMES DAILY 02/08/20 21 Active doxazosin (CARDURA) 4 MG tablet TAKE 1 AND 1/2 TABLETS BY MOUTH TWICE DAILY IN THE MORNING AND IN THE EVENING 270 tablet 3 06/24/19 23 Active Ozempic, 0.25 or 0.5 MG/DOSE, 2 MG/3ML solution pen-injector Inject 0.25 mg under the skin 1 (one) time per week 10/17/19 24 Active lisinopril 20 MG tabletIndications: Stage 3b chronic kidney disease (HCC),Renal disorder due to type 2 diabetes mellitus <Unspecified DM Medication; Diabetic nephropathy> (HCC),Essential hypertension Take 1 tablet (20 mg total) by mouth 1 (one) time each day 90 tablet 3 06/28/19 25 026 Active gabapentin (NEURONTIN) 100 MG capsule TAKE 1 CAPSULE BY MOUTH TWICE DAILY IN THE MORNING AND IN THE EVENING 180 capsule 2 12/09/19 25 Active sodium bicarbonate 650 MG tablet TAKE 1/2 TABLET BY MOUTH THREE TIMES DAILY IN THE MORNING, EVENING, AND BEDTIME 135 tablet 3 02/08/20 25 Active Active Problems Problem Noted Date Diagnosed Date Chronic kidney disease, stage 4 (severe) 024 Osteopenia 06/16/2022 Overview (10/21/2022): Last Assessment & Plan: -Last DEXA scan on 11/06/18 The lowest T-score -1.5 in femoral neck -Repeat DEXA scan -Bisphosphonate is contraindicated due to her CKD Tricuspid valve regurgitation 06/13/2022 Overview (10/21/2022): Last Assessment & Plan: -Last echo on 01/29/22 LVEF 60-65%, [id number] tricuspid regurgitation, mild pulmonary hypertension Stage 3b [...] which was discontinued by pt (prescribed by building tech) - Continue diligent SMBG, current medication, and [...] Encounters Date Type Department Care Team Description 02/07/2025 Refill [facility] [address] [place] [address] Anand Sagastume MD from Last 3 Months Immunizations Immunization Administration [...] Care Team (Late st Contact Info) Description 08/22/2025 1:45 PM EDT Office Visit [facility] [address] [place] [address] Anand Sagastume MD [address] [facility] [address] [place] [address] Health Maintenance Due Date Last [...] 05/03/2019, 05/14/2017, 08/10/2008, Additional history exists Insurance ([id number]) [place] [id number] [facility] ([id number]) Care Teams Propeller Inspector Relationship Specialty Start Date End Date Amy Gilman MD [address] [place] [address] PCP - General 06/26/20
--- OUTSIDE RECORDS SUMMARY | 2025-04-11 08:59 | XMS_ITS | Encounter Summary ---
Author Organization [employer] Address [address] [place] [address] [address] [place] [address] Care Team Providers Care Cloth Spreader Name Role Phone Amy Gilman MD Primary Care Provider [phone] Joshua Mims PharmD Unavailable [phone] Reason for Visit * Reason Comments Med Refill Encounter Details Date Type Department Care Team (Late st Contact Info) Description 11/17/2022 Refill [facility] MEDICINE [address] [place] [address] Ema Bradford MD [address] [place] [address] Social History Tobacco Use Types Packs/Day Years [...] Department Care Team (Late Contact Info) Description 04/14/2025 9:30 AM EDT Medication Management [facility] MEDICINE [address] [place] [address] Joshua Mims, PharmD [address] [place] [address] documented as of this encounter Visit Diagnoses Not on filedocumented in this encounter Care Teams Cloth Spreader Relationship Specialty Start Date End Date Amy Gilman MD [address] [place] [address] PCP - General Family Medicine 06/16/18 Joshua Mims, MerrickD [address] [place] [address] Pharmacist Internal Medicine 05/05/23 documented as of this encounter
--- OUTSIDE RECORDS SUMMARY | 2025-04-11 08:59 | XMS_ITS | Encounter Summary ---
Author Organization [employer] Address [address] [facility] 7t [place] [address] Care Team Providers Care Director Nicu Name Role Phone Amy Gilman MD Primary Care Provider [phone] Joshua Mims PharmD Unavailable [phone] Reason for Visit * Reason Comments Med Refill Encounter Details Date Type Department Care Team ([facility] st Contact Info) Description 01/13/2025 Refill [facility] MEDICINE [address] [place], [place] [phone] Joshua Mims, PharmD 230 [place], [place] [phone] Essential hypertension Social History Tobacco Use Types [...] Description 04/14/2025 9:30 AM EDT Medication Management [facility] MEDICINE [address] [place] [address] Joshua Mims PharmD [address] [place] [address] documented as of this encounter Goals Goal Patient Goal Type Associated Problems Recent Progress Patient-Stated? Author Blood Pressure < 140/90 Blood Pressure 122/70(2024 10:29 AM EDT) No Joshau Mims PharmD Hemoglobin A1c < 7 Result Component 6.9( 11:40 AM EDT) No Joshua Mims PharmD Note: Age + HTN, CKD, Hx Stroke make more relaxed goal (8%) reasonable documented as of this encounter Visit Diagnoses Diagnosis Essential hypertension Unspecified essential hypertension documented in this encounter Additional Health Concerns Assessment Noted Time PHQ-9 Depression Total Score: 0 12/25/19 23 1:34 PM EDT documented as of this encounter Care Teams Director Nicu Relationship Specialty Start Date End Date Amy Gilman MD [address] [place] [address] PCP - General Family Medicine 06/16/18 Joshua Mims PharmD [address] [place] [address] Pharmacist Internal Medicine 05/05/23 documented as of this encounter
--- OUTSIDE RECORDS SUMMARY | 2025-04-11 08:59 | XMS_ITS | Encounter Summary ---
Author Organization [employer] [facility] Address [address] [place] [address] 7t [place] [address] Care Team Providers Care Pipe Fitter Helper Name Role Phone Amy Gilman MD Primary Care Provider [phone] Joshua Mims PharmD Unavailable [phone] Encounter Details Date Type Department Care Team (Latest Contact Info) Description 02/07/2022 Abstract [facility] CONVERSIONS Dental, Provider, DDS Social History [...] Upcoming Encounters Date Type Department Care Team ( st Contact Info) Description 04/14/2025 9:30 AM EDT Medication Management [facility] MEDICINE [address] [place] [address] Joshua Mims, MerrickD [address] [place] [address] documented as of this encounter Visit Diagnoses Not on filedocumented in this encounter Care Teams Pipe Fitter Helper Relationship Specialty Start Date End Date Amy Gilman MD [address] [place] [address] PCP - General Family Medicine 06/16/18 Joshua Mims, PharmD [address] [place] [address] Pharmacist Internal Medicine 05/05/23 documented as of this encounter
--- OUTSIDE RECORDS SUMMARY | 2025-04-11 08:59 | XMS_ITS | Encounter Summary ---
Author Organization [employer] Address [address] [facility] 7t [place] [address] Care Team Providers Care Manager Trading Name Role Phone Amy Gilman MD Primary Care Provider [phone] Joshua Mims PharmD Unavailable [phone] Reason for Referral * Consultation (Routine) - Pending Review Specialty Diagnoses / Procedures Referred By Oscar shook Referred To Contact Pharmacy Diagnoses Type 2 diabetes mellitus with stage 3b chronic kidney disease, with long-term current use of insulin ([facility]) Essential hypertension Moderate persistent asthma without complication Amy Gilman MD [address] [place] [address] Phone: tel: fax: Referral ID Status Reason Start Date Expiration Date Visits Requested Visits Authorized [id number] Pending Review Consult and Treat 4 04/27/2025 6 6 Encounter Details Date Type Department Care Team (Late st Contact Info) Description 04/27/2024 Orders Only [facility] MEDICINE [address] [place] [address] Amy Gilman MD [address] [place] [phone] Type 2 diabetes mellitus with stage 3b [...] Description 04/14/2025 9:30 AM EDT Medication Management [facility] MEDICINE [address] [place] [address] Joshua Mims, PharmD [address] [place] [address] Scheduled Referrals Name Type Priority Associated Diagnoses Orde r Schedule Referral to Pharmacy CDTM Outpatient Referral Routine Type 2 diabetes mellitus with stage 3b chronic kidney disease, with long-term current use of insulin ([facility]) Essential hypertension Moderate persistent asthma without complication [...] disease, with long-term current use of insulin (HCC)- Primary Essential hypertension Unspecified essential hypertension Moderate persistent asthma without complication documented in this encounter Additional Health Concerns Assessment Noted Time PHQ-9 Depression Total Score: 0 12/25/19 1:34 PM EDT documented as of this encounter Care Teams Manager Trading Relationship Specialty Start Date End Date Amy Gilman MD [address] [place] [address] PCP - General Family Medicine 06/16/18 Joshua Mims PharmD [address] [place] [address] Pharmacist Internal Medicine 05/05/23 documented as of this encounter
--- OUTSIDE RECORDS SUMMARY | 2025-04-11 08:59 | XMS_ITS | Clinical Summary ---
Author Organization [employer] Address [address] [place] [address] Care Team Providers Care Woolen [employer]ing Shrinker Name Role Phone Amy Gilman MD Primary Care Provider [phone] Joshua Mims PharmD Unavailable [phone] Allergies Active Allergy Reactions Criticality Noted Date [...] SWALLOW WHOLE WITH WATER 12/19/19 22 Active Diclofenac Sodium 1 % gelIndications:P ain [...] INJECT LANTUS AND HUMALOG 200 each 11 01/30/20 23 Active glucose 4 g chewable tablet Chew 4 tablets by mouth as needed for hypoglycemia. 40 tablet 5 06/02/20 23 Active semaglutide (Ozempic) 2 MG/1.5ML solution pen-injector Inject 0.5 mg under the skin 1 (one) time per week. 1 each 06/15/20 24 Active cetirizine (ZyrTEC) 5 MG tabletIndication s:Allergic rhinitis, unspecified seasonality, unspecified trigger TAKE 1 TABLET BY MOUTH ONCE DAILY NEEDED FOR ALLERGIES 90 tablet 3 08/11/19 25 Active Lancets (OneTouch Delica Plus [id number]) miscIndications: Type 2 diabetes mellitus with stage 3b chronic kidney disease, with long-term current use of insulin ([facility]) Use three times daily as needed 100 each 08/12/19 25 Active glucose blood (FreeStyle Precision Neno Test) test stripIndications :Type 2 diabetes mellitus with stage 3b chronic kidney disease, with long-term current use of insulin ([facility]) USE TO TEST BLOOD SUGAR UP TO THREE TIMES DAILY NEEDED FOR LOW BLOOD SUGAR 100 strip 5 08/12/19 25 Active Continuous Glucose Zig Zag Stitcher (FreeStyle Starla 3 [place]) deviceIndication s:Type 2 diabetes mellitus with stage 3b chronic kidney disease, with long-term current use of insulin ([facility]) 1 Device Use as directed. 1 each 08/12/19 25 Active Continuous Glucose Sensor (FreeStyle Starla 3 Plus Sensor) miscIndications: Type 2 diabetes mellitus with stage 3b chronic kidney disease, with long-term current use of insulin ([facility]) 1 each every 15 days. Use to check blood sugar as directed. Change Sensor every 15 days. 2 each 08/12/19 25 Active montelukast (Singulair) 10 MG tablet TAKE 1 TABLET BY MOUTH EVERY EVENING 90 tablet 3 09/07/19 25 Active cholecalciferol (Vitamin D-3) 25 MCG tablet TAKE 1 TABLET BY MOUTH EVERY MORNING 90 tablet 3 11/11/19 25 Active hydrALAZINE (Apresoline) 25 MG tablet Take 25 mg by mouth 2 times daily. 10/23/19 25 Active insulin glargine (Lantus SoloStar) 100 UNIT/ML penIndications:T ype 2 diabetes mellitus with stage 3b chronic kidney disease, with long-term current use of insulin ([facility]) INJECT 30 UNITS SUBCUTANEOUSLY AT 8 IN THE EVENING. 30 mL 11/16/19 25 Active Icosapent Ethyl (Vascepa) 1 g capsuleIndicatio ns:Type 2 diabetes mellitus with stage 3b chronic kidney disease, with long-term current use of insulin ([facility]) Take 2 capsules (2 g) by mouth with breakfast and with evening meal. 120 capsule 11/16/19 25 Active metoprolol succinate XL (Toprol-XL) 200 MG 24 hr tablet TAKE 1 TABLET BY MOUTH EVERY MORNING 30 tablet 11/18/19 25 Active meloxicam (Mobic) 7.5 MG tablet Take 1 tablet (7.5 mg) by mouth 2 times daily. 60 tablet 12/21/19 25 026 Active doxazosin (Cardura) 8 MG tablet TAKE 1 TABLET BY MOUTH AT BEDTIME 90 tablet 01/14/20 25 Active atorvastatin (Lipitor) 80 MG tablet TAKE 1 TABLET BY MOUTH AT BEDTIME 90 tablet 01/14/20 25 Active amLODIPine (Norvasc) 5 MG tabletIndication s:Essential hypertension Take 1 tablet (5 mg) by mouth Once per day. 90 tablet 01/14/20 25 Active magnesium oxide (Mag-Ox) 400 MG tablet TAKE 1 TABLET BY MOUTH TWICE DAILY IN THE MORNING AND IN THE EVENING 180 tablet 03/08/20 25 Active Aspirin Low Dose 81 MG EC tablet TAKE 1 TABLET BY MOUTH EVERY EVENING 90 tablet 03/08/20 25 Active furosemide (Lasix) 20 MG tabletIndication s:Essential hypertension TAKE 1/2 TABLET BY MOUTH EVERY MORNING 45 tablet 03/08/20 25 Active Active Problems Problem Noted Date [...] pain 03/16/2024 Dizziness 03/16/2024 Assessment & Plan (10/17/2024 11:20 AM EDT): - multifactorial, yet poor nutritional status / inadequate nutrition seems to be a major contributing factor - carotid ultrasound in Jun 2024 showed moderate carotid stenosis - continue optimizing ASCVD risk factors and diabetes care Assessment & Plan (06/25/2024 6:26 AM EST): - multifactorial, yet poor nutritional status / inadequate nutrition seems to be a major contributing factor - patient would like to decrease the dose of Semaglutide. Agreed with the plan PAD (peripheral artery disease) 10/06/2023 Assessment & Plan (10/17/2024 11:22 AM EDT): - following with [facility] - subclavian artery stenosis and carotid stenosis - last carotid US in Jun 2024 - continue working on lifestyle modifications / risk factor management Assessment & Plan (06/15/2024 12:13 PM EST): [...] risk factor management and follow [facility] with [facility] provider History of stroke 06/17/2023 Assessment & Plan (06/22/2023 7:36 AM EST): - continue aspirin, statin, and BP management for secondary prevention - continue working on lifestyle modifications Osteopenia 06/16/2022 Assessment & Plan (10/10/2024 3:30 PM EDT): - last DEXA on 07/28/24, the lowest T-score -2.0 in femoral neck, no significant change from Jun 2022 The lowest T-score -1.9 - continue calcium supplementation - continue weight-bearing exercise - repeat DEXA in 2026. - contraindication for bisphosphonate. Assessment & Plan (06/25/2024 6:17 AM EST): [...] weight bearing exercise - Consider referring to technology sales specialist for other alternatives Assessment & Plan (06/16/2022 6:36 PM EST): -Last DEXA scan on 11/06/18 The lowest T-score -1.5 in femoral neck -Repeat DEXA scan -Bisphosphonate is contraindicated due to her CKD Tricuspid valve regurgitation 06/13/2022 Overview (05/05/2023): Last Assessment & Plan: -Last echo on 01/29/22 LVEF 60-65%, [id number] tricuspid regurgitation, mild pulmonary hypertension Assessment & Plan (12/24/2022 3:17 PM EDT): -Last echo on 01/29/22 LVEF 60-65%, [id number] tricuspid regurgitation, mild pulmonary hypertension Assessment & Plan (06/13/2022 9:10 AM EST): -Last echo on 01/29/22 LVEF 60-65%, [id number] tricuspid regurgitation, mild pulmonary hypertension Hyperkalemia 10/17/2020 [...] level in Apr 2024 - followed by dispatcher maintenance - continue vitamin D Proteinuria 10/10/2020 Type 2 diabetes mellitus 06/13/2015 Assessment & Plan (10/11/2024 12:15 PM EDT): Dx: 2002. - Complication: Microalbuminuria / CKD. Associated medical conditions: HTN; dyslipidemia; CKD; anemia; - A1C 6.9% on 10/11/24, slight increase from A1C 6.5% on 06/15/24, improved from 7% [...] which was discontinued by pt (prescribed by dispatcher maintenance); discontinued dulaglutide due to adverse reaction - Continue diligent SMBG, current medication, and lifestyle modifications. - Last eye exam: 04/21/23 - Last foot exam: September 2024, high risk due to PAD but normal exam - Last microalbumin test: 04/20/24 UACR 78 (done at dispatcher maintenance's office) - Last lipid profile: TRIG 270; CHOL 207; LDL 116; HDL 37 10/07/24 - Last dental exam: Recommended to schedule Immunizations: up to date Assessment & Plan (06/25/2024 6:22 AM EST): [...] which was discontinued by pt (prescribed by dispatcher maintenance); discontinued dulaglutide due to adverse reaction - Continue diligent SMBG, current medication, and lifestyle modifications. - Last eye exam: 04/21/23 - Last foot exam: Jun 2023, high risk due to PAD - Last microalbumin test: 04/20/24 UACR 78 (done at dispatcher maintenance's office) - Last lipid profile: 07/28/23 - [...] which was discontinued by pt (prescribed by dispatcher maintenance); discontinued dulaglutide due to adverse reaction - [...] which was discontinued by pt (prescribed by dispatcher maintenance); discontinued dulaglutide due to adverse reaction - [...] which was discontinued by pt (prescribed by dispatcher maintenance); discontinued dulaglutide due to adverse reaction - [...] which was discontinued by pt (prescribed by dispatcher maintenance); discontinued dulaglutide due to adverse reaction - [...] which was discontinued by pt (prescribed by dispatcher maintenance); discontinued dulaglutide due to adverse reaction - [...] which was discontinued by pt (prescribed by dispatcher maintenance); discontinued dulaglutide due to adverse reaction - [...] which was discontinued by pt (prescribed by dispatcher maintenance) - Continue diligent SMBG, current medication, and [...] disease Chronic kidney disease, stage III (moderate) (CM S/HCC) 04/12/2015 Assessment & Plan (10/11/2024 1:04 PM EDT): -followed by dispatcher maintenanceDr. Sagastume -on sodium bicarbonate for metabolic acidosis and patiromer for hyperkalemia -Avoid nephrotoxic drugs -Renal dose meds -Continue SGLT2i Assessment & Plan (06/25/2024 6:19 AM EST): -followed by dispatcher maintenanceDr. Sagastume -on sodium bicarbonate for metabolic acidosis and patiromer for hyperkalemia -Avoid nephrotoxic drugs -Renal dose meds -Continue SGLT2i Assessment & Plan (03/16/2024 2:20 PM EDT): -followed by dispatcher maintenanceDr. Sagastume -on sodium bicarbonate for metabolic acidosis and patiromer for hyperkalemia -most recent lab : 10/15/22 Sodium 133 ; BUN 41 ; WBC 7.3 ; Hemoglobin 11.1 ; Hct 33.7 ; Carbon Dioxide 22 ; Creatinine 1.51 -Avoid nephrotoxic drugs -Renal dose meds Assessment & Plan (10/06/2023 6:24 AM EDT): -followed by dispatcher maintenanceDr. Sagastume -on sodium bicarbonate for metabolic acidosis and patiromer for hyperkalemia -most recent lab : 10/15/22 Sodium 133 ; BUN 41 ; WBC 7.3 ; Hemoglobin 11.1 ; Hct 33.7 ; Carbon Dioxide 22 ; Creatinine 1.51 -Avoid nephrotoxic drugs -Renal dose meds Assessment & Plan (06/22/2023 7:31 AM EST): -followed by dispatcher maintenanceDr. Sagastume -on sodium bicarbonate for metabolic acidosis and patiromer for hyperkalemia -most recent lab : 10/15/22 Sodium 133 ; BUN 41 ; WBC 7.3 ; Hemoglobin 11.1 ; Hct 33.7 ; Carbon Dioxide 22 ; Creatinine 1.51 -Avoid nephrotoxic drugs -Renal dose meds Assessment & Plan (04/01/2023 5:43 AM EDT): -followed by dispatcher maintenanceDr. Sagastume -on sodium bicarbonate for metabolic acidosis and patiromer for hyperkalemia -most recent lab : 10/15/22 Sodium 133 ; BUN 41 ; WBC 7.3 ; Hemoglobin 11.1 ; Hct 33.7 ; Carbon Dioxide 22 ; Creatinine 1.51 -Avoid nephrotoxic drugs -Renal dose meds Assessment & Plan (02/23/2023 11:52 AM EDT): -followed by dispatcher maintenanceDr. Sagastume -on sodium bicarbonate for metabolic acidosis and patiromer for hyperkalemia -most recent lab : 10/15/22 Sodium 133 ; BUN 41 ; WBC 7.3 ; Hemoglobin 11.1 ; Hct 33.7 ; Carbon Dioxide 22 ; Creatinine 1.51 -Avoid nephrotoxic drugs -Renal dose meds Assessment & Plan (12/31/2022 9:40 AM EDT): -followed by dispatcher maintenanceDr. Sagastume -on sodium bicarbonate for metabolic acidosis and patiromer for hyperkalemia -most recent lab : 10/15/22 Sodium 133 ; BUN 41 ; WBC 7.3 ; Hemoglobin 11.1 ; Hct 33.7 ; Carbon Dioxide 22 ; Creatinine 1.51 -Avoid nephrotoxic drugs -Renal dose meds Assessment & Plan (06/16/2022 6:31 PM EST): -followed by dispatcher maintenanceDr. Sagastume -on sodium bicarbonate for metabolic acidosis and patiromer for hyperkalemia -most recent lab in November 2021 showed stable renal fxn, BUN 40; SCr 1.49; eGFR 35 -Avoid nephrotoxic drugs -Renal dose meds Essential hypertension 04/12/2015 Assessment & Plan (10/17/2024 11:21 AM EDT): -Goal BP < 140/90 per JNC-8, <130/80 per ACC/AHA guideline (Tx threshold > 130/80) -BP elevated today -Hx of refractory hypertension -Comanaged with dispatcher maintenance, woolen suiting shrinker, and pharmacist -Continue lisinopril 40 mg daily [...] tolerating amlodipine. Will monitor her intolerance closely. Photography Editor: ELLA, last seen in Jul 2024 General Counsel: Dr. Sagastume, last seen in October 2022 Echocardiogram: TTE 01/29/22 EF 60%. Mild to moderate tricuspid regurgitation. Mild pulmonary hypertension Consider evaluating for primary aldosteronism (K is normal-high, so unlikely). Consider decreasing pill-burden. Follow-up in 3 mo or sooner prn Assessment & Plan (06/15/2024 12:13 PM EST): -Goal BP < 140/90 per JNC-8, <130/80 per ACC/AHA guideline (Tx threshold > 130/80) -BP elevated today -Hx of refractory hypertension -Comanaged with dispatcher maintenance, woolen suiting shrinker, and pharmacist -Continue lisinopril 40 mg daily [...] tolerating amlodipine. Will monitor her intolerance closely. Photography Editor: ELLA, last seen in Jul 2023 General Counsel: Dr. Sagastume, last seen in October 2022 [...] today -Hx of refractory hypertension -Comanaged with dispatcher maintenance, woolen suiting shrinker, and pharmacist -Continue lisinopril 40 mg daily [...] tolerating amlodipine. Will monitor her intolerance closely. Photography Editor: ELLA, last seen in Jul 2023 General Counsel: Dr. Sagastume, last seen in October 2022 [...] 130/80) -Hx of refractory hypertension -Comanaged with dispatcher maintenance, woolen suiting shrinker, and pharmacist -Continue lisinopril 40 mg daily [...] tolerating amlodipine. Will monitor her intolerance closely. Photography Editor: ELLA, last seen in Jul 2023 General Counsel: Dr. Sagastume, last seen in October 2022 [...] tolerating amlodipine. Will monitor her intolerance closely. Photography Editor: ELLA, last seen in Jan 2023 General Counsel: Dr. Sagastume, last seen in October 2022 [...] tolerating amlodipine. Will monitor her intolerance closely. Photography Editor: ELLA, last seen on 02/21/22 General Counsel: Dr. Sagastume, last seen in 01/08/22 Echocardiogram: [...] tolerating amlodipine. Will monitor her intolerance closely. Photography Editor: ELLA, last seen on 02/21/22 General Counsel: Dr. Sagastume, last seen in 01/08/22 Echocardiogram: [...] tolerating amlodipine. Will monitor her intolerance closely. Photography Editor: ELLA, last seen on 02/21/22 General Counsel: Dr. Sagastume, last seen in 01/08/22 Echocardiogram: [...] tolerating amlodipine. Will monitor her intolerance closely. Photography Editor: ELLA, last seen on 02/21/22 General Counsel: Dr. Sagastume, last seen in 01/08/22 Echocardiogram: 06/14/14 LVEF 60-65%; aortic calcification, mild mitral regurgitation Asthma 04/12/2015 Assessment & Plan (10/11/2024 1:03 PM EDT): - Most recent exacerbation: 10/2022, Tx with azithromycin and prednisone -last CXR on 11/2022 was normal - continue fluticasone (Flovent) (although patient does not seem to be using it daily) - continue albuterol inhaler + nebulizer as needed Assessment & Plan (06/25/2024 6:12 AM EST): [...] Carotid artery stenosis 09/20/2014 Assessment & Plan (10/11/2024 12:14 PM EDT): -Carotid US on 07/08/24 bilateral moderate stenosis. Plaque in the right ICA is complex and irregular. -continue working on risk factor management Assessment & Plan (06/15/2024 12:13 PM EST): [...] on 06/30/14 b/l 16-49% stenosis. -check with woolen suiting shrinker for more recent US reprot -upcoming appt with woolen suiting shrinker on 02/11/23, carotid US in Jun 2023. -continue working on risk factor management Assessment & Plan (02/23/2023 11:50 AM EDT): -Last carotid US on 06/30/14 b/l 16-49% stenosis. -check with woolen suiting shrinker for more recent US reprot -upcoming appt with woolen suiting shrinker on 02/11/23, carotid US in Jun 2023. -continue working on risk factor management Assessment & Plan (12/31/2022 9:37 AM EDT): -Last carotid US on 06/30/14 b/l 16-49% stenosis. -check with woolen suiting shrinker for more recent US reprot Assessment & Plan (06/13/2022 9:11 AM EST): -Last carotid US on 06/30/14 b/l 16-49% stenosis. Allergic rhinitis 02/04/2012 Assessment & Plan (12/24/2022 2:56 PM EDT): continue Singulair, Cetrizine, and ipratropium nasal spray, Pt requested Saline Nasal [place], will prescribe Treatment Hx; Flonase is ineffective Bilateral cataracts 02/04/2012 Dyslipidemia 02/04/2012 Assessment & Plan (10/11/2024 12:11 PM EDT): -Last lipid profile: TRIG 270; CHOL 207; LDL 116; HDL 37 10/07/24 -Current mediation: Atorvastin 80 mg at bedtime -She is on high-intensity statin therapy -Previously on Ezetimibe which pt self discontinued due to possible side effects. Pt declined to restart today 10/11/24 - Continue lifestyle modifiations Assessment & Plan (06/25/2024 6:24 AM EST): [...] Encounters Date Type Department Care Team Description 03/07/2025 Refill [facility] [address] [place] [address] Amy Gilman MD Essential hypertension 02/21/2025 Travel 01/13/2025 Refill [facility] [address] [place] [address] Amy Gilman MD Essential hypertension 01/13/2025 Refill [facility] [address] [place] [address] Joshua Mims, PharmD Essential hypertension 01/13/2025 Refill [facility] [address] [place] [address] Amy Gilman MD 01/10/2025 Telephone [facility] [address] [place] [address] Amy Gilman MD from Last 3 Months Immunizations Immunization Administration Dates Next Due Hep B, adult [...] Sign Reading Time Taken Comments Blood Pressure 122/70 02/21/2025 10:29 AM EDT Pulse 85 02/21/2025 10:29 AM EDT Temperature 36.9 C (98.5 F) 12/20/2024 9:32 AM EDT Respiratory Rate 16 12/20/2024 9:32 AM EDT Oxygen Saturation 98% 10/11/2024 11:49 AM EDT Inhaled Oxygen Concentration - - Weight 72.1 kg (159 lb) 12/20/2024 9:32 AM EDT Height 157.5 cm (5' 2 ) 12/20/2024 9:32 AM EDT Body Mass Index 29.08 12/20/2024 9:32 AM EDT Plan of Treatment Upcoming Encounters Date Type Department Care Team (Late st Contact Info) Description 04/14/2025 9:30 AM EDT Medication Management [facility] [address] [place] [address] Joshua Mims, PharmD [address] [place] [address] Health Maintenance Due Date Last Done Comments CT Colonography 1950 Colonoscopy 1950 FIT 1950 Sigmoidoscopy 1950 Alcohol/Substance Use Screening 1964 RSV Patients and Patients Aged 60 years or older (1 - Risk 60-74 years 1-dose series) 2012 FOBT 10/12/2024 10/13/2023 COVID-19 Vaccine ( season) 2025 06/17/2023, 06/13/2022, 10/23/2021, Additional history exists Influenza Vaccine (#1) 2025 , 06/17/2023, 06/13/2022, Additional history exists Depression Screening 03/16/2025 03/16/2024, 12/25/19 23 SDOH Screening 03/16/2025 03/16/2024 Diabetes: Hemoglobin A1C 04/12/2025 025, 06/15/2024, 03/16/2024, Additional history exists Mammogram 07/14/2025 07/14/2024, 06/17, 07/05/2022, Additional history exists Lipid Panel 10/07/2025 10/07/2024, 07/17, 06/25/2022, Additional history exists Diabetes: Foot Exam 10/11/2025 10/11/2024, 10/11/2024, 10/11/2024, Additional history exists Tobacco Screening 12/20/2025 12/20/2024 Colorectal Cancer Screening 10/12/2026 FIT DNA/Cologuard 10/12/2026 10/13/2023 Eye Exam 10/21/2026 10/21/2024, 0501/2025, 10/21/2024, Additional history exists DTaP/Tdap/Td Vaccines (3 - Td or Tdap) 06/17/2033 06/17/2023, 03/26/2012, 05/17/2010, Additional history exists Hepatitis B Vaccines Completed 09/20/2014, 10/26/2013, 06/30/2013 Pneumococcal Vaccine: 50+ Years Completed 05/03/2019, 05/14/2017, 08/10/2008, Additional history exists Zoster Vaccines Completed 12/25/2021, 12/14, 10/23/2021, Additional history exists HIB Vaccines Aged Out No longer eligi ble based on patient's age to complete this topic HPV Vaccines Aged Out No longer eligi ble based on patient's age to complete this topic Hepatitis A Vaccines Aged Out No long er eligible based on patient's age to complete this topic Hepatitis C Screening Discontinued IPV Vaccines Aged Out No longer eligi ble based on patient's age to complete this topic Meningococcal B Vaccine Aged Out No l onger eligible based on patient's age to complete [...] Pressure 122/70(2024 10:29 AM EDT) No Joshua Mims, PharmD Hemoglobin A1c < 7 Result Component 6.9( 11:40 AM EDT) No Joshua Mims, PharmD Note: Age + HTN, CKD, Hx Stroke make more relaxed goal (8%) reasonable Procedures Procedure Name Priority Date/Time Associated Diagnosis Comments POCT GLYCOSYLATED HEMOGLOBIN (HGB A1C) Routine 10/11/2024 11:40 AM EDT Type 2 diabetes mellitus with stage 3b chronic kidney disease, with long-term current use of insulin ([facility]) LIPID PANEL WITH REFLEX TO DIRECT LDL Routine 10/07/2024 9:07 AM EDT Dyslipidemia BI MAMMOGRAM SCREENING TOMOSYNTHESIS BILATERAL Routine 07/14/2024 1:45 PM EST LAB COLOGUARD COLON CANCER SCREEN Routine 10/13/2023 6:30 AM EDT Colon cancer screening from Last 3 Months or Most Recently Relevant to Health Maintenance Results * (ABNORMAL) POCT glycosylated hemoglobin (Hgb A1c) (10/11/2024 11:40 AM EDT) Hemoglobin A1C 6.9(A) 4.0 - 6.0 % QC Media Lot # [id number] Lot# Expiration Date [id number] Blood Capillary blood specimen / Unknown 10/11/2024 11:40 AM EDT Amy Gilman MD POINT OF CARE TEST ENTER/EDIT OR DERABLES Final Result * (ABNORMAL) Lipid Panel with Reflex to Direct LDL (10/07/2024 9:07 AM EDT) Triglycerides 270(H) <150 mg/dL [facility] Comment:Desirable Triglyceri de: less than 150 mg/dLBorderline High Triglyceride 150-199 mg/dLHigh Triglyceride: 200-499 mg/dLVery High Triglyceride: greater than or equal to 5OO mg/dL Cholesterol 207(H) <200 mg/dL [facility] Comment:Desirable Cholestero l: less than 200 mg/dLBorderline High Cholesterol: 200-239 mg/dLHigh Cholesterol: greater than 239 mg/dL LDL Cholesterol Calculated 116(H) <100 mg/dL [facility] Comment:Desirable LDL: less than 100 mg/dLNear Optimal/Above Optimal LDL: 110- 129 mg/dLBorderline High LDL: 130-159 mg/dLHigh LDL: 160-189 mg/dLVery High LDL: greater than or equal to 190 mg/dL HDL Cholesterol 37(L) >40 mg/dL [facility] Comment:Desirable HDL: great er than 40 mg/dL Note: This HDL assay may give artificially low results in patients with liver disease. Blood 10/07/2024 9:07 AM EDT 10/07/2024 11:10 AM EDT Amy Gilman MD LAB BLOOD ORDERABLES Final Resul t [facility] [address] [place] [phone] * BI Mammogram Screening Tomosynthesis Bilateral (07/14/2024 1:45 PM EST) Anatomical Region Laterality Modality Breast Bilateral Mammography 07/14/2024 1:45 PM EST Narrative 07/24/2024 12:45 PM EST [facility] [address] [place] [address] Mammography Report Signed Patient: Loraine Cuevas MR#: [id number] : 1950 Acct:[id number] Age/Sex: 74 / F ADM Date: 07/14/24 Loc: HO.MAMMO Attending Dr: Amy Gilman MD Ordering Physician: Amy Gilman MD Results: 2Benign F indings Date of Service: 07/14/24 Follow Up: 1 Year From [facility] ina Mammogram Procedure(s): MM tomosynthesis screening BI Accession Number(s): [id number] cc: Amy Gilman MD EXAMINATION: MM SCREENING [...] 07/24/24 1242 DD/ 1345 TD/TT: 07/14/24 1400 Licensed Social Worker: Procedure Note Donotuseinterpreter, Image - 07/24/2024 [place] [facility] [address] [place], [place] [address] Mammography Report Signed Patient: Loraine CuevasMR#: [id number] : 2Acct:[id number] Age/Sex: 74 / FADM Date: 07/14/24 Loc: HO.MAMMO Attending Dr: Amy Gilman MD Ordering Physician: Amy Gilman MDResults: 2Benign F indings Date of Service: 07/14/24Follow Up: 1 Year From Orig inal Mammogram Procedure(s): MM tomosynthesis screening BI Accession Number(s): [id number] cc: Amy Gilman MD EXAMINATION: MM SCREENING [...] by: Rosy Talavera DO 07/24/2024 12:42 PM [facility] Dictated By: Rosy Talavera DO Signed By: <Electronically signed by Rosy Talavera DO in [place]> 07/24/24 1242 DD/ 1345 TD/TT: 07/14/24 1400 Licensed Social Worker: us Amy Gilman MD IMG BI PROCEDURES Edited Result - Final * Cologuard?? colon cancer screening (10/13/2023 6:30 AM EDT) Cologuard Result Negative Negative 10/21/19 6:12 PM EDT [employer] (CLIA #:[id number]) Comment: NEGATIVE TEST RESULT. A negative Cologuard result indicates a low likelihood that a colorectal cancer (CRC) or advanced adenoma (adenomatous polyps with more advanced pre-malignant features) is present. The chance that a person with a negative Cologuard test has a colorectal cancer is less than 1 in 1500 (negative predictive value >99.9%) or has an advanced adenoma is less than 5.3% (negative predictive value 94.7%). These data are based on a prospective cross-sectional study of 10,000 individuals at average risk for colorectal cancer who were screened with both Cologuard and colonoscopy. (Mayito Beard et al, N Engl J Med 2014;370(14):7110-6020) The normal value (reference range) for this assay is negative. COLOGUARD RE-SCREENING RECOMMENDATION: Periodic colorectal cancer screening is an important part of preventive healthcare for asymptomatic individuals at average risk for colorectal cancer. Following a negative Cologuard result, the [place] [employer] and U.S. Multi-Society Task Force screening guidelines recommend a Cologuard re-screening interval of 3 years. References: [place] [employer] Guideline for Colorectal Cancer Screening: https://www.cancer.org/cancer/giqrx-vzmqlj-nzpdan/mnxdktewi-raunqxyco-dowzyro/ac s-rec ommendations.html.; Darryn MICHELE, Flaquito SMART, Shaneka WatsonK, Colorectal Cancer Screening: Recommendations for Physicians and Patients from the U.S. Multi-Society Task Force on Colorectal Cancer Screening , Am J Gastroenterology 2017; 112:0592-2095. TEST DESCRIPTION: Composite algorithmic analysis of stool DNA-biomarkers with hemoglobin immunoassay. Quantitative values of individual biomarkers are not [...] Holland. et al, N Engl J Med 2014;370(14):8607-9667.) Cologuard may produce a false negative or false positive result (no colorectal cancer or precancerous polyp present at colonoscopy follow up). A negative Cologuard test result does not guarantee the absence of CRC or advanced adenoma (pre-cancer). The current Cologuard screening interval is every 3 years. ([place] [employer] and U.S. Multi-Society Task Force). Cologuard performance data in a 10,000 patient pivotal study using colonoscopy as the reference method can be accessed at the following location: www.[employer]/results. Additional description of the Cologuard test process, warnings and precautions can be found at [email or web address].comoguard.com. Stool specimen (specimen) 10/13/2023 6:30 AM EDT 10/14/2023 10:49 AM EDT us Amy Gilman MD LAB MOLECULAR DIAGNOSTICS ORDERA BLES Final Result [facility] (CLIA #:[id number]) [place] [place] [address], from Last 3 Months or Most Recently Relevant to Health Maintenance Insurance [employer] (HMO D-SNP) [facility] Care Teams [employer] Relationship Specialty Start Date End Date Amy Gilman MD [address] [place] [address] PCP - General Family Medicine 06/16/18 oJshua Mims, PharmD [address] [place] [address] Pharmacist Internal Medicine 05/05/23
[2025-04-11 12:13] LABS: Cholesterol 168 mg/dL (<200); HDL Cholesterol 33 mg/dL (>40); Triglycerides 186 mg/dL (<150)
== END 2025-04-11 08:36 | disposition home or self-care (01) ==
LOC: HO.HHCL 08:35
PROVIDERS: PCP Family Medicine; Visit Provider Family Medicine
DX: E11.22 Type 2 diabetes mellitus with diabetic chronic kidney disease (principal); N18.32 Chronic kidney disease, stage 3b; Z79.4 Long term (current) use of insulin
CPT/HCPCS: 36415; 80061